=== PATIENT | male | born 1960 | race African-American/Black ===

== ENCOUNTER 2016-07-14 14:20 | Inpatient (IN) | payer BC, OTHER ==
[~2016-07-14] VITALS: Ht 172.7 cm; Wt 49.6 kg
[~2016-07-14 14:20] MED LIST: AMLO10TA OR; LEVA250T OR; LISI20TA5 OR; NASONEX INH; NICO21DI4 TD; NYSTATIN POWDER TOP; [UNRECOGNIZED DRUG - OTHER]; [UNRECOGNIZED DRUG - OTHER] INH
[2016-07-14] MEDS ORDERED: NS 1,000 ML IV ONE (15:00)
[2016-07-14] MEDS ORDERED: ADVI200T PO (15:35)
[2016-07-14 15:46] LABS: CALCIUM LEVEL 8.3 MG/DL (8.5-10.1); CREATININE FOR GFR 2.42 MG/DL (0.70-1.30); GLOMERULAR FILTRATION RATE 35.8 (>56); POTASSIUM SERUM 4.7 MEQ/L (3.5-5.1)
--- NOTE | 2016-07-14 15:53 | REP ---
CT of the brain without IV contrast: Comparison is 05/25/2010. There is no hemorrhage. The cortical stripe is unremarkable. There is no edema, mass effect or midline shift. The ventricles and sulci are dilated, as previously, compatible with diffuse volume loss. There are hypo densities in the deep white matter compatible with chronic microvascular ischemia, also unchanged. Impression: There is no hemorrhage, acute infarct or mass. There is diffuse volume loss and chronic microvascular ischemia, unchanged from the comparison study. Signed by Keshav Carrion MD 07/14/2016 03:44 P
--- NOTE | 2016-07-14 15:59 | REP ---
Leading add were CT of the chest without IV contrast: There is a large infiltrate posteriorly in the right upper lobe. There is a smaller infiltrate in the right lower lobe. There is a right pleural effusion. The left lung is clear. The thoracic aorta is unremarkable. Cardiac size is normal. There is opaque material in the myocardium of the left ventricle anterolaterally and within the lumen of the left ventricle of uncertain significance. There are no comparison studies. There is no pericardial effusion. Impression: Large right upper lobe infiltrate. Smaller right lower lobe infiltrate. Right pleural effusion. Opacities are present in the left ventricle myocardium left ventricular lumen of uncertain significance in this study without IV contrast and without comparisons. Signed by Keshav Carrion MD 07/14/2016 03:50 P
--- NOTE | 2016-07-14 16:03 | REP ---
CT of the abdomen pelvis without IV and oral contrast: There are opacities in the left ventricular myocardium and left ventricular lumen of uncertain significance in this study without IV contrast and without comparisons. There is a small right pleural effusion. The unenhanced hepatic parenchyma, gallbladder, pancreas and spleen are unremarkable. The adrenals, kidneys and abdominal aorta are unremarkable. There is no bowel distension or obstruction. Pelvis: There is no ascites or adenopathy. The bladder is unremarkable. The appendix is unremarkable. Impression: Small right pleural effusion. Opacities in the cardiac left ventricular myocardium and lumen of uncertain significance in the absence of prior studies and in the absence of IV contrast. No bowel distension or obstruction. No adenopathy or mass. No ascites. Otherwise, negative CT of the abdomen and pelvis. Signed by Keshav Carrion MD 07/14/2016 03:54 P
--- NOTE | 2016-07-14 16:07 | REP ---
Portable chest, single AP view, patient sitting: There is a large right upper lobe infiltrate. Left lung is clear. No pleural effusion. The isaak, mediastinum, bony thorax are otherwise unremarkable. Signed by Keshav Carrion MD 07/14/2016 03:59 P
[2016-07-14] MEDS ORDERED: AZITHROMYCIN INJ 500 MG, VIAL MATE ADAPTER 1 EACH in D5W 250 ML IV ONE (16:15)
[2016-07-14] MEDS ORDERED: cefTRIAXone SOD 1 GM in D5W MINI-BAG PLUS 50 ML IV ONE (16:15)
[2016-07-14] MEDS ORDERED: methylPREDNISolone INJ 125 MG/2 ML VIAL (J2930) IV ONE (16:30)
[2016-07-14] MEDS ORDERED: IPRATROPIUM 0.5MG/ALBUTEROL 2.5MG INH SOL UD 3ML (DUONEB)(J7620) NEB ONE (16:30)
[2016-07-14] MEDS ORDERED: NS 700 ML IV ONE (16:30)
[2016-07-14] MEDS ORDERED: ALBUTEROL SULFATE 2.5 MG/0.5 ML INH NEB SOLN INH ONE (16:30)
[2016-07-14 16:39] LABS: ABG BASE EXCESS -5.6 (-2.0-2.0); ABG HCO3 16.6 MEQ/L (22.0-26.0); ABG PARTIAL PRESSURE CO2 24.3 mmHg (35.0-45.0); ABG PARTIAL PRESSURE O2 53.9 mmHg (75.0-100.0); ABG STANDARD HCO3 19.7 MEQ/L (22.0-26.0); ABG TOTAL CO2 17.4 MEQ/L (22.0-29.0); ABG pH (ARTERIAL) 7.453 UNITS (7.350-7.450)
[2016-07-14 16:47] LABS: FREE T4 1.18 NG/DL (0.76-1.46)
[2016-07-14 17:28] LABS: INR 1.23
[2016-07-14] MEDS: OXAZEPAM 15 MG CAP PO SCH ×2 (18:00→22:58)
[2016-07-14 18:03] LABS: DIFF SLIDE NUMBER 143; MEAN CORPUSCULAR HEMOGLOBIN 33.2 pg (27.0-33.0); MEAN CORPUSCULAR HGB CONC 34.3 g/dl (32.0-36.5); MEAN CORPUSCULAR VOLUME 96.8 fl (80.0-96.0); RED CELL DISTRIBUTION WIDTH 13.6 % (11.5-14.5); WHITE BLOOD COUNT 3.5 K/mm3 (4.0-10.0)
[2016-07-14 18:12] LABS: PLATELET COUNT, AUTOMATED 80 k/mm3 (150-450)
[2016-07-14 18:55] LABS: BANDS 16 % (< 11)
[2016-07-14 18:56] LABS: BURR CELLS 1+; TOXIC VACUOLATION 1+
[2016-07-14] MEDS ORDERED: ONDANSETRON 4MG/2ML VIAL (J2405) IV PRN (19:45)
[2016-07-14] MEDS ORDERED: LORazepam 2 MG/ML VIAL (J2060) IV PRN (19:45)
[2016-07-14] MEDS ORDERED: IPRATROPIUM 0.5MG/ALBUTEROL 2.5MG INH SOL UD 3ML (DUONEB)(J7620) NEB PRN (19:45)
--- NOTE | 2016-07-14 20:17 | HPEPDOC ---
General Date of Admission 07/14/16 Other Providers PCP: None Attending Physician: FEI TORRES Chief Complaint The patient is a 55-year-old male admitted with a reason for visit of General Weakness. Source: RN/MD, EMS notes reviewed Exam Limitations: Clinical conditions History of Present Illness 55-year-old male with past medical history of hypertension, alcohol abuse ( drinks a 6 pack per day for the past 30+ years), tobacco abuse (2PPD for 30+ years), Possible COPD (no formal testing done in the past), and right-sided pulmonary nodules noted on x-ray imaging in 2010 presented to the ER with a chief complaint of progressive shortness of breath and increase in weakness/ lethargy with a 30 pound weight loss over the last several months. The patient is a very poor historian and is unable to provide much information about his medical history. However, the ER physician was able to get in contact with the of the patient who states that the patient has not seen a physician in 5+ years, and does not take any medications. The patient's states that the patient has started to require significant help with his activities of daily living and ambulation. In addition, she notes that he has been increasingly weak and notes that he has been having more of a productive cough with increased shortness of breath during this time. Further history is limited given the patient's clinical condition. A phone call was placed to the patient' s , and has not been immediately returned. Of note, the patient was admitted here at [facility] for 17 days in May 2010 for septic shock, acute renal failure, acute hypoxic respiratory failure 2/2 streptococcal pneumonia with ARDS, requiring intubation, mechanical ventilation , and vasopressor therapy. It appears as though the patient has not followed up with any physician following his discharge at that time. Home Medications Scheduled PRN Ibuprofen (Advil) 200 Mg Tab 400 MG PO PRN PRN PRN PAIN (Reported) Allergies Coded Allergies: No Known Allergies (Verified Allergy, Unknown, 05/25/10) Past Medical History Medical History As noted in the HPI. Surgical History Unable to reliably obtain secondary to patient's clinical condition Family History Unable to reliably obtain secondary to patient's clinical condition Social History Unable to reliably obtain secondary to patient's clinical condition Review of Symptoms Other systems Unable to reliably obtain secondary to patient's clinical condition Physical Examination General Exam: Positive: Mild Distress (Patient able to speak in a full sentence , however does have some labored breathing. No accessory muscle use. Oriented to person, place, but not time, situation. Resting in bed, appears cachectic with bitemporal wasting) ENT Exam: Positive: Atraumatic, Other ENT (dry mucous membranes) Neck Exam: Negative: JVD Chest Exam: Positive: Diminished, Other (Decreased breath sounds auscultated right vs left) Heart Exam: Positive: Normal S1, Normal S2, Rate Normal, Tachycardic Telemetry: Positive: Sinus Abdomen Exam: Positive: Soft, Negative: Tenderness Extremity Exam: Positive: Other (Chronic Venous Stasis changes, dry skin noted in the lower extremities bilaterally), Negative: Swelling, Tenderness Neuro Exam: Positive: Cranial Nerves 3-12 NL, Sensation Intact, Strength at 5/ 5 X4 ext Vital Signs Vital Signs Date Time Temp Pulse Resp B/P Pulse Ox O2 Delivery O2 Flow Rate FiO2 07/14/16 18:58 96.9 114 16 94 Venturi Mask 40 07/14/16 18:56 151/79 Laboratory Data Labs 24H Laboratory Tests 2 07/14/16 15:05: Anion Gap 16, Blood Urea Nitrogen 39H, Creatinine 2.42H, Sodium Level 123L, Potassium Level 4.7, Chloride Level 87L, Carbon Dioxide Level 20L, Calcium Level 8.3L, Total Creatine Kinase 175, Creatine Kinase MB 1.7, Creatine Kinase MB Relative Index 0.97, Free Thyroxine 1.18, Glomerular Filtration Rate 35.8L, Lactic Acid Level 3.8*H, Thyroid Stimulating Hormone (TSH) 4.640H, Troponin I 0.06 07/14/16 16:24: Arterial Blood pH 7.453H, Arterial Blood Partial Pressure CO2 24.3L, Arterial Blood Partial Pressure O2 53.9L, Arterial Blood Total CO2 17.4L, Arterial Blood HCO3 16.6L, Arterial Blood Base Excess -5.6L, Arterial Blood Oxygen Saturation 84.6L, Blood Gas Bicarbonate Standard 19.7L 07/14/16 17:10: Activated Partial Thromboplast Time 33.1, Atypical Lymphocytes 5, Band Neutrophils 16H, Pierre Cells 1+, Lymphocytes (Manual) 5L, Macrocytosis 1+, Metamyelocytes 3H, Monocytes (Manual) 7, Neutrophils 64, Osmolality 266L, Platelet Estimate DECREASED, Prothromb Time International Ratio 1.23, Prothrombin Time 15.6H, Toxic Vacuolation 1+ CBC/BMP Laboratory Tests 07/14/16 15:05 Calcium Level 8.3 L, Total Creatine Kinase 175 07/14/16 17:10 Red Blood Count 3.76 L, Mean Corpuscular Volume 96.8 H, Mean Corpuscular Hemoglobin 33.2 H, Mean Corpuscular Hemoglobin Concent 34.3, Red Cell Distribution Width 13.6 Microbiology Microbiology 07/14/16 Blood Culture, Received Pending 07/14/16 Blood Culture, Received Pending Plan / VTE VTE Prophylaxis Ordered?: Yes (TEDs) Plan Plan Acute hypoxic failure secondary to community-acquired pneumonia We will admit the patient to PCU ABG notable for metabolic acidosis with compensatory respiratory alkalosis Ct Scan of the Chest notable for Large right upper lobe infiltrate. Smaller right lower lobe infiltrate. Right pleural effusion. Blood cultures, sputum cultures, respiratory panel ordered Patient has been empirically begun on Rocephin and azithromycin Albuterol, neb therapy ordered Incentive spirometry, Acapella ordered We will continue to monitor the patient's respiratory status and down titrate supplemental oxygen as tolerated Lactic acidosis likely secondary to above Serum lactate noted to be 3.8 The patient has been bolused 30 mL per KG of normal saline IV fluids We will recheck a serum lactate level Acute renal failure likely secondary to intravascular volume depletion Serum creatinine noted to be 2.42 (?Baseline, our last baseline Cr for patient is ~1.0 in 2010) IV fluid hydration ordered Urine lytes ordered Renal ultrasound We will follow-up on the patient's kidney function after IV fluid hydration Hyponatremia Serum sodium noted to be 123 The patient does drink a sixpack of beer daily, and I do suspect that this may be related to beer potomania. Serum osmolarity, urine osmolarity, and urine sodium levels ordered The patient has been given a 1.7 L fluid bolus in the ER for lactic acidosis as noted above We will recheck his serum sodium level serially, and adjust IV fluid composition /rate accordingly Alcohol abuse Withdrawal precautions ordered Serax 15 mg every 6 hours ordered Ativan when necessary ordered ?COPD Patient has smoked 2 PPD for 30+ years according to records There is some wheezing noted on exam Albuterol, Nebs have been ordered Patient will need formal PFT studies done in the future Pancytopenia possibly secondary to chronic alcohol abuse No need for transfusion at this time Peripheral smear ordered Pulmonary nodules noted on Chest X-ray in 2010 Given the patient's 30 pound weight loss, progressive fatigue/lethargy it is possible that the patient may have an underlying malignancy Although the CT of the chest did not reveal any nodules on admission, they may be obscured by the infiltrates/effusion noted on the right side. Consider follow-up CT of the chest once the patient is more medically optimized Opacities noted in the LV myocardium, lumen of uncertain significance on CT Chest These findings were discussed by Dr. James in the ER with Dr. Somers of Cardiology who has indicated that there is no urgent need at this time for STAT ECHO evaluation. We will order a routine 2-D echocardiogram at Dr. Somers' request, who will follow up for further delineation of the aforementioned findings. DVT prophylaxis--TEDs (No anticoagulation used 2/2 Thrombocytopenia) Prognosis Guarded at this time, Senior Living Prognosis poor given the patient's history of non-adherence, and multiple medical complications on this admission including but not limited to; hypoxic respiratory failure, community-acquired pneumonia, lactic acidosis, acute renal failure, hyponatremia, and overall clinical deterioration over the last several months. The patient will be admitted under the service of Dr. Torres, who will begin to follow the patient on 07/15/16 at 7 AM. NORIS GARCIA MD Jul 14, 2016 20:17
[2016-07-14 20:20] VITALS: O2SAT 93
[2016-07-14] MEDS: IPRATROPIUM 0.5MG/ALBUTEROL 2.5MG INH SOL UD 3ML (DUONEB)(J7620) NEB SCH ×2 (20:28→23:38)
--- NOTE | 2016-07-14 21:20 | REPUSA ---
Clinical history: Renal disease. Findings: The urinary bladder appears unremarkable. No urinary bladder masses are seen. The right kid melania measures 11.9 x 6.4 x 5.5 cm. The left kidney measures 11.5 x 4.7 x 6.3 cm. The kidneys demonst rate increased echotexture and echogenicity. There is no evidence of hydronephrosis or nephrolithias is. No renal masses are seen. No free fluid is appreciated. Impression: No evidence of hydronephrosis or nephrolithiasis. However, increase echogenicity of the r enal cortex is seen bilaterally, suggesting moderate chronic medical renal disease.
[2016-07-14 21:25] VITALS: BP 140/71
[2016-07-14 21:25] LABS: REASON FOR REVIEW COMPREHENSIVE REVIEW
[2016-07-14 21:34] LABS: MAGNESIUM LEVEL 1.7 MG/DL (1.8-2.4)
[2016-07-14 21:58] LABS: CALCIUM LEVEL 7.6 MG/DL (8.5-10.1); CREATININE FOR GFR 2.09 MG/DL (0.70-1.30); GLOMERULAR FILTRATION RATE 42.4 (>56); POTASSIUM SERUM 3.6 MEQ/L (3.5-5.1)
[2016-07-14] MEDS: MAGNESIUM OXIDE 400 MG TAB (MAG-OX) PO SCH (22:58)
[2016-07-14 23:59] VITALS: BP 108/56
[2016-07-15 01:50] LABS: METHADONE URINE NEGATIVE (NEGATIVE)
[2016-07-15] MEDS: IPRATROPIUM 0.5MG/ALBUTEROL 2.5MG INH SOL UD 3ML (DUONEB)(J7620) NEB SCH ×5 (03:26→20:34)
[2016-07-15 04:45] VITALS: BP 130/80
[2016-07-15] MEDS: OXAZEPAM 15 MG CAP PO SCH ×3 (05:23→17:34)
[2016-07-15] MEDS: cefTRIAXone SOD 1 GM in D5W MINI-BAG PLUS 50 ML IV SCH ×2 (05:23→17:24)
[2016-07-15 05:43] LABS: DIFF SLIDE NUMBER 71; MEAN CORPUSCULAR HEMOGLOBIN 33.6 pg (27.0-33.0); MEAN CORPUSCULAR HGB CONC 34.2 g/dl (32.0-36.5); MEAN CORPUSCULAR VOLUME 98.1 fl (80.0-96.0); RED CELL DISTRIBUTION WIDTH 13.7 % (11.5-14.5); WHITE BLOOD COUNT 7.1 K/mm3 (4.0-10.0)
[2016-07-15 05:44] LABS: PLATELET COUNT, AUTOMATED 84 k/mm3 (150-450)
[2016-07-15 05:49] LABS: ALBUMIN/GLOBULIN RATIO 0.53 (1.00-1.93); BILIRUBIN,TOTAL 1.6 MG/DL (0.2-1.0); CALCIUM LEVEL 7.7 MG/DL (8.5-10.1); CREATININE FOR GFR 1.87 MG/DL (0.70-1.30); GLOMERULAR FILTRATION RATE 48.3 (>56); MAGNESIUM LEVEL 1.7 MG/DL (1.8-2.4); POTASSIUM SERUM 3.5 MEQ/L (3.5-5.1); TOTAL PROTEIN 5.8 GM/DL (6.4-8.2)
[2016-07-15 06:36] LABS: BANDS 3 % (< 11)
[2016-07-15 06:38] LABS: TOXIC GRANULATION 1+
[2016-07-15 06:40] LABS: BURR CELLS 1+
[2016-07-15 06:41] LABS: ACANTHOCYTES 1+
[2016-07-15 08:00] VITALS: BP 124/91
[2016-07-15] MEDS: MAGNESIUM OXIDE 400 MG TAB (MAG-OX) PO SCH ×2 (08:33→20:48)
[2016-07-15] MEDS: MAG SULF 1GM/100ML (MAG RUN) 1 GM in APPROPRIATE DILUENT 1 EA IV SCH ×2 (08:33→09:58)
[2016-07-15] MEDS ORDERED: VANCOMYCIN HCL 1,000 MG, VIAL MATE ADAPTER 1 EACH in D5W 250 ML IV SCH (10:00)
--- NOTE | 2016-07-15 10:34 | PHACANCOPD ---
PHARMACY VANCOMYCIN DOSING Pt Demographics Demographics Patient Age:55 , Weight:51.500 , Gender: male Adjusted Body Weight Date: 07/15/16, Adjusted Body Weight: [52] Kg Events Past 24 Hours Events Past 24 Hours: NO: Change in CrCl, Dialysis, Diuretic Therapy, Elevation in WBC, Fever, Other, Pending Diagnostics, Pending Procedures Vancomycin Vancomycin indication: BACTEREMIA Vancomycin Target Ranges: 15-20 mcg/ml Vancomycin Load Y/N: No Load Dose Date Time Vancomycin Load Dose: Date: Time: Vancomycin Dose Date: 07/15/16. Current Vancomycin Dose: [1G IV Q24H @10] Intermittent Dosing?: No Labs Labs Item Value Date Time White Blood Count 3.5 K/mm3 L 07/14/16 1710 White Blood Count 7.1 K/mm3 07/15/16 0522 Creatinine 1.87 MG/DL H 07/15/16 0522 Micro Microbiology 07/15/16 Blood Culture, Received Pending 07/15/16 Blood Culture, Received Pending 07/14/16 Blood Culture - Preliminary, Resulted 07/14/16 Blood Culture - Preliminary, Resulted 07/15/16 Respiratory Virus Panel (PCR) (NISREEN) - Final, Complete 07/15/16 Urine Culture, Received Pending Creatinine Clearance Date:07/15/16. Creatinine Clearance: [42.2]. Pending Labs BLOOD AND URINE CULTURES Assessment and Plan Maintaining Current Dose?: Yes Reason for dose change: No Dose Change Pharmacist Note Pharmacist Note Date: 07/15/16. Pharmacist note: PT is a 55y/o male being treated for bacteremia blood and urine cultures pending, target trough 15-20mcg/ml. Pt has been [facility] with vancom[facility]. To achieve goal he is scheduled to receive 1g q 24h starting 07/15 @10. We will continue to monitor and change dose as needed. MUNA GONSALES PHARMACY Jul 15, 2016 10:34
[2016-07-15 12:00] VITALS: BP 162/88
[2016-07-15 15:33] VITALS: BP 141/80
--- NOTE | 2016-07-15 16:57 | IPNPDOC ---
Date Seen The patient was seen on 07/15/16. Progress Note Hospitalist Progress Note Subjective: The patient is currently somewhat sedated after receiving a dose of Serax. Per nursing, he has been maintaining his blood pressure Objective: Physical Exam: Vitals: Vital Sign - Last 24 Hours 07/14/16 07/14/16 07/14/16 07/14/16 17:12 17:26 17:27 17:41 Pulse 118 118 B/P 136/77 120/79 Pulse Ox 92 93 07/14/16 07/14/16 07/14/16 07/14/16 17:42 17:56 17:57 18:11 Pulse 118 116 B/P 121/79 128/86 Pulse Ox 92 91 07/14/16 07/14/16 07/14/16 07/14/16 18:12 18:13 18:26 18:28 Pulse 114 114 116 B/P 130/84 Pulse Ox 90 91 91 07/14/16 07/14/16 07/14/16 07/14/16 18:41 18:43 18:56 18:58 Temp 96.9 Pulse 112 114 Resp 16 B/P 131/78 151/79 Pulse Ox 92 94 O2 Delivery Venturi Mask FiO2 40 07/14/16 07/14/16 07/14/16 07/14/16 20:20 21:25 23:27 23:59 Temp 98.9 99.7 Pulse 55 133 Resp 22 22 B/P 140/71 108/56 Pulse Ox 93 93 96 O2 Delivery Venturi Mask Venturi Mask Venturi Mask Venturi Mask O2 Flow Rate 15.0 15.0 15.0 15.0 FiO2 40 40 07/15/16 07/15/16 07/15/16 07/15/16 00:00 04:00 04:45 08:00 Temp 99.7 99.0 Pulse 119 124 Resp 20 20 B/P 130/80 124/91 Pulse Ox 99 94 O2 Delivery Venturi Mask Venturi Mask Venturi Mask Venturi Mask O2 Flow Rate 15.0 15.0 07/15/16 07/15/16 07/15/16 07/15/16 08:15 12:00 12:24 15:33 Temp 97.0 96.9 Pulse 82 116 Resp 20 20 B/P 162/88 141/80 Pulse Ox 96 96 O2 Delivery Venturi Mask Nasal Cannula Nasal Cannula Nasal Cannula O2 Flow Rate 2.0 2.0 2.0 General: Sleeping, but able to be aroused by verbal and tactile stimuli HEENT: Normocephalic, atraumatic CV: Regular rhythm but slightly tachycardic Lungs: Diffuse rhonchi throughout Abd: Soft, nontender, nondistended Extremities: No bilateral lower extremity edema Neuro: Oriented to self, but somewhat sedated after receiving Serax Psych: Unable to assess Labs and Imaging: Laboratory Tests 07/14/16 17:10 Red Blood Count 3.76 L, Mean Corpuscular Volume 96.8 H, Mean Corpuscular Hemoglobin 33.2 H, Mean Corpuscular Hemoglobin Concent 34.3, Red Cell Distribution Width 13.6 07/14/16 21:19 Calcium Level 7.6 L 07/14/16 22:39 07/15/16 01:53 07/15/16 05:22 Calcium Level 7.7 L, Aspartate Amino Transf (AST/SGOT) 41 H, Alanine Aminotransferase (ALT/SGPT) 20, Alkaline Phosphatase 46, Total Bilirubin 1.6 H, Total Protein 5.8 L, Albumin 2.0 L, Red Blood Count 3.48 L, Mean Corpuscular Volume 98.1 H, Mean Corpuscular Hemoglobin 33.6 H, Mean Corpuscular Hemoglobin Concent 34.2, Red Cell Distribution Width 13.7 07/15/16 10:52 07/15/16 15:05 Assessment and Plan: 55-year-old male with hypertension, alcohol dependence, tobacco abuse, likely undiagnosed COPD, history of right-sided pulmonary nodules on imaging in 2010 who presented to the emergency department with increasing shortness of breath as well as a 30 pound weight loss over the last several months. According to his , he has not seen a physician in over 5 years and does not take any medications. He is admitted with acute respiratory failure secondary to community-acquired pneumonia. 1. Acute respiratory failure secondary to community-acquired pneumonia: The patient is afebrile, his initial white count was a little bit low. Today, his white count has normalized. Imaging shows a large right upper lobe infiltrate, as well as a small right lower lobe infiltrate. Blood and urine cultures are pending. The patient has an associated lactic acidosis, which is also improving. At this time, we will continue azithromycin and ceftriaxone. The patient did receive an adequate fluid bolus, but we will not be judicious with his IV fluids, as an admission for similar presentation several years ago, found him requiring intubation after volume overload. We will start him on gentle IV fluids. Initial blood cultures are growing GPC's in both bottles, so we will add vancomycin and repeat blood cultures. The patient has also been started on duo nebs for his likely underlying COPD. 2. Hyponatremia: The patient's sodium was 123 upon arrival. I suspect that there is some chronic component of this secondary to his alcohol dependence. With IV fluid boluses, his sodium has trended up to 129. We will start gentle normal saline, and continue to monitor serial sodiums 3. Acute kidney injury: Patient's baseline creatinine is unknown, creatinine upon arrival was 2.42. After fluid bolus, his creatinine is improved to 1.87, and we'll continue to follow it. 4. Opacity in the left ventricle: On chest imaging, they instantly noted in opacity in the left ventricle. Per report, the ED physician spoke with Dr. Somers about this, and he recommended routine echocardiogram, which she would follow up. 5. Alcohol dependence: The patient has been started on scheduled oral Serax, as well as as needed Ativan. However, the patient was very lethargic when I saw him , so we will check an ABG and hold future Serax doses if he is somnolent 6. Hypomagnesemia: Replacing. 7. Hypertension: The patient does not take any medications at home. At this time , his blood pressure is adequate and we will follow closely. 8. Known pulmonary nodules: These were noted on his admission almost 6 years ago. At that time, there was concern for postobstructive pneumonia. According to the , this was never further investigated after discharge. When the patient is finally discharged, he will need close follow-up with pulmonology, with repeat imaging and possibly biopsies. It is significant to note, the patient has lost 30 pounds in the last several months, and this pneumonia has occurred on the same side as the pneumonia several years ago. DVT prophylaxis: SCDs Dispo: prognosis is guarded at this time, continue to monitor closely VS, I&O, 24H, Fishbone Vital Signs/I&O Vital Signs Date Time Temp Pulse Resp B/P Pulse Ox O2 Delivery O2 Flow Rate FiO2 4/24/17 15:33 96.9 116 20 141/80 96 Nasal Cannula 2.0 07/14/16 23:27 40 I&O- Last 24 Hours up to 6 AM 07/15/16 05:59 Intake Total 2000 ml Output Total 375 ml Balance 1625 ml Laboratory Data 24H LABS Laboratory Tests 2 07/14/16 17:05: Differential Pathologist's Review COMPREHENSIVE REVIEW, Differential Slide Review Report, Estimated Mean Plasma Glucose 111H, Hemoglobin A1c 5.5, Peripheral Blood Smear Path Consult PERIPHERAL SMEAR 07/14/16 17:10: Activated Partial Thromboplast Time 33.1, Atypical Lymphocytes 5, Band Neutrophils 16H, Pierre Cells 1+, Lymphocytes (Manual) 5L, Macrocytosis 1+, Metamyelocytes 3H, Monocytes (Manual) 7, Neutrophils 64, Osmolality 266L, Platelet Estimate DECREASED, Prothromb Time International Ratio 1.23, Prothrombin Time 15.6H, Toxic Vacuolation 1+ 07/14/16 21:19: Anion Gap 12, Blood Urea Nitrogen 36H, Creatinine 2.09H, Sodium Level 126L, Potassium Level 3.6#, Chloride Level 93L, Carbon Dioxide Level 21, Calcium Level 7.6L, Glomerular Filtration Rate 42.4L, Lactic Acid Level 3.2*H 07/15/16 00:55: Urine Amorphous Sediment SMALLH, Urine Amphetamines Screen NEGATIVE, Urine Benzodiazepines Screen NEGATIVE, Urine Opiates Screen NEGATIVE, Urine Appearance CLOUDYH, Urine Color CHRISTOPHER, Urine pH 5.0, Urine Specific [place] 1.013, Urine Protein NEGATIVE, Urine Glucose (UA) NEGATIVE, Urine Ketones TRACEH , Urine Urobilinogen 2.0H, Urine Bilirubin NEGATIVE, Urine Leukocyte Esterase NEGATIVE, Urine Bacteria (Auto) NEGATIVE, Urine Barbiturates Screen NEGATIVE, Urine Blood 1+H, Urine Calcium Carbonate Cryst(Auto) , Urine Calcium Oxalate Cryst (Auto) , Urine Calcium Phosphate Janina (Auto) , Urine Cannabinoids Screen NEGATIVE, Urine Cellular Casts , Urine Cocaine Metabolite Screen NEGATIVE, Urine Cystine Crystals , Urine Granular Casts (Auto) , Urine Hyaline Casts (Auto ) 1, Urine Leucine Crystals , Urine Methadone Screen NEGATIVE, Urine Mucus (Auto ) SMALL, Urine Nitrite NEGATIVE, Urine Oval Fat Bodies (Auto) , Urine Phencyclidine Screen NEGATIVE, Urine RBC (Auto) 1, Urine Renal Epithelial Cells , Urine Sperm (Auto) , Urine Squamous Epithelial Cells 4, Urine Transitional Epithelial Cells , Urine Trichomonas (Auto) , Urine Triple Phosphate Cryst (Auto ) , Urine Tyrosine Crystals , Urine Uric Acid Crystals (Auto) , Urine WBC (Auto ) 9H, Urine Waxy Casts (Auto) , Urine Yeast-Like Cells (Auto) 07/15/16 01:53: Lactic Acid Followup at 4 Hours 2.7*H 07/15/16 05:22: Acanthocytes 1+, Blood Urea Nitrogen 35H, Creatinine 1.87H, Sodium Level 128L, Potassium Level 3.5, Chloride Level 95L, Carbon Dioxide Level 18L, Calcium Level 7.7L, Aspartate Amino Transf (AST/SGOT) 41H, Alanine Aminotransferase (ALT /SGPT) 20, Alkaline Phosphatase 46, Total Bilirubin 1.6H, Total Protein 5.8L, Albumin 2.0L, Albumin/Globulin Ratio 0.53L, Anion Gap 15, Band Neutrophils 3, Pierre Cells 1+, Glomerular Filtration Rate 48.3L, Lactic Acid Level 2.9*H, Lymphocytes (Manual) 2L, Macrocytosis 1+, Magnesium Level 1.7L, Monocytes ( Manual) 4, Neutrophils 91H, Platelet Estimate DECREASED, Toxic Granulation 1+ 07/15/16 09:40: Lactic Acid Followup at 4 Hours 2.4*H CBC/BMP Laboratory Tests 07/14/16 17:10 Red Blood Count 3.76 L, Mean Corpuscular Volume 96.8 H, Mean Corpuscular Hemoglobin 33.2 H, Mean Corpuscular Hemoglobin Concent 34.3, Red Cell Distribution Width 13.6 07/14/16 21:19 Calcium Level 7.6 L 07/14/16 22:39 07/15/16 01:53 07/15/16 05:22 Calcium Level 7.7 L, Aspartate Amino Transf (AST/SGOT) 41 H, Alanine Aminotransferase (ALT/SGPT) 20, Alkaline Phosphatase 46, Total Bilirubin 1.6 H, Total Protein 5.8 L, Albumin 2.0 L, Red Blood Count 3.48 L, Mean Corpuscular Volume 98.1 H, Mean Corpuscular Hemoglobin 33.6 H, Mean Corpuscular Hemoglobin Concent 34.2, Red Cell Distribution Width 13.7 07/15/16 10:52 4/24/17 15:05 Microbiology Microbiology 07/15/16 Blood Culture, Received Pending 07/15/16 Blood Culture, Received Pending 07/14/16 Blood Culture - Preliminary, Resulted 07/14/16 Blood Culture - Preliminary, Resulted 07/15/16 Respiratory Virus Panel (PCR) ([facility]) - Final, Complete 07/15/16 Urine Culture, Received Pending FEI GANT Jul 15, 2016 16:57
[2016-07-15 17:04] LABS: ABG BASE EXCESS -6.9 (-2.0-2.0); ABG HCO3 18.7 MEQ/L (22.0-26.0); ABG PARTIAL PRESSURE CO2 37.7 mmHg (35.0-45.0); ABG PARTIAL PRESSURE O2 70.1 mmHg (75.0-100.0); ABG STANDARD HCO3 18.8 MEQ/L (22.0-26.0); ABG TOTAL CO2 19.8 MEQ/L (22.0-29.0); ABG pH (ARTERIAL) 7.313 UNITS (7.350-7.450)
[2016-07-15] MEDS: NS 1,000 ML IV SCH (17:23)
[2016-07-15] MEDS: AZITHROMYCIN INJ 500 MG, VIAL MATE ADAPTER 1 EACH in D5W 250 ML IV SCH (17:24)
--- NOTE | 2016-07-15 19:30 | ECHO ---
DATE OF PROCEDURE: 07/15/2016 AGE: 55 GENDER: Male HEIGHT: 68 inches WEIGHT: 119 pounds BODY SURFACE AREA: 1.64 sq m INPATIENT: Progressive Care Unit (PCU) Room 3222. REFERRING PHYSICIAN: Dr. Ken Weston. INDICATION: CT scan suggestive of left ventricle (LV) mass. MEASUREMENTS: 2-D measurements: RV- 3.7 cm LV 6.0 cm Septum- 1.2 cm Posterior wall- 1.2 cm Aortic root- 3.6 cm LA- 3.8 cm LVEF- 35-40% Doppler measurements: AV- 1.3 m/s LVOT- 0.93 m/s LVOT diameter- 2.1 cm MV-E- 83 A- 110 E/A ratio- 0.7 Early mitral deceleration time- 164 ms E prime not well visualized. PV- 0.65 m/s Pulmonary artery acceleration time- 92 ms RVSP- 38 mmHg IVC- 1.3 cm COMMENTS: Sinus tachycardia with intraventricular conduction disturbance. Somewhat technically challenging study in light of his body habitus. Borderline increased left atrial size with moderately dilated left ventricle. Left heart chambers were upper limits of normal in size. LV wall thickness was borderline increased. On real-time imaging from the parasternal and apical projections there was fairly marked anterior hypo to akinesis with hyperkinesis of the apex and slight hypokinesis of other wiley. Mildly thickened mitral annulus with prominent papillary muscles. Normal leaflet thickness with a "low flow" appearance to leaflet motion but no posterior systolic buckling. Three equal size aortic cusps with mildly thickened cusp edges but adequate cusp separation. Premature cusp closure suggestive. Aortic diameter was upper limits of normal aortic root size. Could not rule out a small sessile vegetation on the aortic valve but no other intracardiac mass or pericardial effusion. Color flow Doppler study taken from the parasternal and apical projections showed very mild aortic and moderate to moderately severe mitral insufficiency. Very mild tricuspid insufficiency. Guided continuous wave Doppler of his aortic valve showed a normal peak systolic velocity against an LV outflow tract obstruction. Pulsed and continuous wave Doppler of his LV inflow tract taken from the apical four-chamber projection showed normal diastolic filling velocities against mitral stenosis. There was more prominent late diastolic / atrial dependent filling pattern. In light of the patient's heart rate it was difficult to make further comments on his left atrial pressure or left ventricular diastolic function. Pulsed and continuous wave Doppler of his pulmonary trunk showed a normal peak systolic velocity against right ventricle (RV) outflow tract obstruction. Pulmonary artery acceleration time was abbreviated consistent with an elevated pulmonary vascular resistance. Guided continuous wave Doppler of his tricuspid valve allowed our estimation of his right ventricular systolic pressure (least mildly increased). Current inferior vena cava (IVC) size was normal with normal respiratory collapse against an elevated central venous pressure. CONCLUSIONS: Apparent LV mass suspected on chest CT scan believed to be simply papillary muscles. No other separate intracardiac mass was visible. Findings in keeping with a dilated cardiomyothy - Moderately dilated left ventricle with borderline hypertrophy and significant septal and apical wall motion abnormality as we might find with left bundle branch block but could not rule out a prior injury. At least moderately severe impairment of global LV systolic function. Borderline left atrial enlargement with Doppler evidence of a degree of LV diastolic dysfunction. Normal right heart chamber sizes with Doppler evidence of at least mild pulmonary hypertension. Normal IVC size and collapse against an elevated central venous pressure. Mild mitral annular thickening with moderately severe to severe mitral insufficiency related to left ventricular dysfunction and dilated mitral annulus. Subtle to mild aortic valvular sclerosis with very mild insufficiency. MTDD
[2016-07-15 19:38] VITALS: BP 112/65
--- NOTE | 2016-07-15 20:30 | ECGEPIP ---
Stationary ECG Study [facility] - ED Test Date: 2016-07-14 Pat Name: JOSÉ ANTONIO AVENDAÑO Department: Room: - Gender: M Passenger Agent: rn : 1960 Requested By: Shannon Jackson Order Number: [id number] Reading MD: Haritha Murdock Measurements Intervals [place] Rate: 106 P: 58 NH: 159 QRS: -22 QRSD: 100 T: 73 QT: 324 QTc: 431 Interpretive Statements SINUS TACHYCARDIA WITH FREQUENT VENTRICULAR PREMATURE COMPLEXES LEFT ATRIAL ENLARGEMENT POSSIBLE LEFT VENTRICULAR HYPERTROPHY POSSIBLE SEPTAL MYOCARDIAL INFARCTION, OF INDETERMINATE AGE NO PRIOR FOR COMPARISON Electronically Signed On 07-15-2016 20:29:56 EDT by Haritha Murdock
[2016-07-15 20:34] VITALS: O2SAT 96
[2016-07-15 22:40] LABS: ANION GAP 10 MEQ/L (8-16); BLOOD UREA NITROGEN 34 MG/DL (7-18); CALCIUM LEVEL 8.3 MG/DL (8.5-10.1); CARBON DIOXIDE LEVEL 23 MEQ/L (21-32); CHLORIDE LEVEL 97 MEQ/L (98-107); CREATININE FOR GFR 1.41 MG/DL (0.70-1.30); GLOMERULAR FILTRATION RATE > 60.0 (>56); GLUCOSE, FASTING 122 MG/DL (70-105); MAGNESIUM LEVEL 2.7 MG/DL (1.8-2.4); POTASSIUM SERUM 3.1 MEQ/L (3.5-5.1); SODIUM LEVEL 130 MEQ/L (136-145)
[2016-07-15] MEDS: KCL 10MEQ IN 100ML SWI (KRUN) 10 MEQ in APPROPRIATE DILUENT 1 EA IV SCH ×2 (23:41)
[2016-07-16] MEDS: IPRATROPIUM 0.5MG/ALBUTEROL 2.5MG INH SOL UD 3ML (DUONEB)(J7620) NEB SCH ×7 (00:03→23:19)
[2016-07-16 00:11] LABS: ABG BASE EXCESS -4.7 (-2.0-2.0); ABG HCO3 19.3 MEQ/L (22.0-26.0); ABG PARTIAL PRESSURE CO2 32.5 mmHg (35.0-45.0); ABG PARTIAL PRESSURE O2 75.6 mmHg (75.0-100.0); ABG STANDARD HCO3 20.5 MEQ/L (22.0-26.0); ABG TOTAL CO2 20.3 MEQ/L (22.0-29.0); ABG pH (ARTERIAL) 7.392 UNITS (7.350-7.450)
[2016-07-16 00:15] VITALS: BP 131/83
[2016-07-16] MEDS: KCL 10MEQ IN 100ML SWI (KRUN) 10 MEQ in APPROPRIATE DILUENT 1 EA IV SCH ×4 (01:00→02:26)
[2016-07-16] MEDS: NS 1,000 ML IV SCH ×3 (02:30→12:59)
[2016-07-16 04:20] VITALS: BP 137/69
[2016-07-16] MEDS: OXAZEPAM 15 MG CAP PO SCH ×2 (04:39→17:29)
[2016-07-16] MEDS: cefTRIAXone SOD 1 GM in D5W MINI-BAG PLUS 50 ML IV SCH ×2 (04:43→16:46)
[2016-07-16 05:52] LABS: DIFF SLIDE NUMBER 54; MEAN CORPUSCULAR HEMOGLOBIN 34.8 pg (27.0-33.0); MEAN CORPUSCULAR HGB CONC 35.1 g/dl (32.0-36.5); MEAN CORPUSCULAR VOLUME 99.1 fl (80.0-96.0); RED CELL DISTRIBUTION WIDTH 13.9 % (11.5-14.5); WHITE BLOOD COUNT 17.7 K/mm3 (4.0-10.0)
[2016-07-16 06:09] LABS: ALBUMIN 1.8 GM/DL (3.2-5.2); ALBUMIN/GLOBULIN RATIO 0.45 (1.00-1.93); ALKALINE PHOSPHATASE 64 U/L (45-117); ALT/SGPT 28 U/L (12-78); ANION GAP 11 MEQ/L (8-16); AST/SGOT 68 U/L (15-37); BILIRUBIN,TOTAL 1.5 MG/DL (0.2-1.0); BLOOD UREA NITROGEN 31 MG/DL (7-18); CALCIUM LEVEL 8.2 MG/DL (8.5-10.1); CARBON DIOXIDE LEVEL 21 MEQ/L (21-32); CHLORIDE LEVEL 98 MEQ/L (98-107); CREATININE FOR GFR 1.32 MG/DL (0.70-1.30); GLOMERULAR FILTRATION RATE > 60.0 (>56); GLUCOSE, FASTING 108 MG/DL (70-105); MAGNESIUM LEVEL 2.4 MG/DL (1.8-2.4); POTASSIUM SERUM 3.5 MEQ/L (3.5-5.1); SODIUM LEVEL 130 MEQ/L (136-145); TOTAL PROTEIN 5.8 GM/DL (6.4-8.2)
[2016-07-16 06:31] LABS: PLATELET COUNT, AUTOMATED 53 k/mm3 (150-450)
[2016-07-16 06:36] LABS: BANDS 2 % (< 11)
[2016-07-16 06:39] LABS: TOXIC GRANULATION 2+; TOXIC VACUOLATION 1+
[2016-07-16 07:39] VITALS: BP 126/70
--- NOTE | 2016-07-16 08:23 | PHACANCOPD ---
PHARMACY VANCOMYCIN DOSING Pt Demographics Demographics Patient Age:55 , Weight:51.000 , Gender: male Adjusted Body Weight Date: 07/15/16, Adjusted Body Weight: [52] Kg Events Past 24 Hours Events Past 24 Hours: YES: Change in CrCl (CRCL HAS INCREASED), Elevation in WBC, NO: Dialysis, Diuretic Therapy, Fever, Other, Pending Diagnostics, Pending Procedures Vancomycin Vancomycin indication: BACTEREMIA Vancomycin Target Ranges: 15-20 mcg/ml Vancomycin Load Y/N: No Load Dose Date Time Vancomycin Load Dose: Date: Time: Vancomycin Dose Date: 07/16/16. Current Vancomycin Dose: [1 GRAM IV Q12H @ 0900] Date: 07/15/16. Current Vancomycin Dose: [1G IV Q24H @10] Intermittent Dosing?: No Labs Labs Item Value Date Time White Blood Count 17.7 K/mm3 H 07/16/16 0531 Creatinine 1.41 MG/DL H 07/15/16 2150 Creatinine 1.32 MG/DL H 07/16/16 0531 Micro Microbiology 07/15/16 Blood Culture, Received Pending 07/15/16 Blood Culture, Received Pending 07/14/16 Blood Culture - Preliminary, Resulted 07/14/16 Blood Culture - Preliminary, Resulted 07/15/16 Respiratory Virus Panel (PCR) (NISREEN) - Final, Complete 07/15/16 Urine Culture, Received Pending Creatinine Clearance Date:07/15/16. Creatinine Clearance: [42.2]. Pending Labs VANCO TROUGH 07/17 @ 0800 Assessment and Plan Maintaining Current Dose?: No Reason for dose change: Change in serum Cr Pharmacist Note Pharmacist Note Date: 07/16/16. Pharmacist note: Patients WBCs increased and SCr has improved. Vanco dose was changed to 1 gram IV Q12H with a trough scheduled for 07/17 @ 0800. Blood cultures are still pending. Continue to monitor and adjust dose as needed. Date: 07/15/16. Pharmacist note: PT is a 55y/o male being treated for bacteremia blood and urine cultures pending, target trough 15-20mcg/ml. Pt has been treated with vancomycin here at [facility] in the past. To achieve goal he is scheduled to receive 1g q 24h starting 07/15 @10. We will continue to monitor and change dose as needed. BOBO STAPLETON [facility] Jul 16, 2016 08:23
[2016-07-16] MEDS: MAGNESIUM OXIDE 400 MG TAB (MAG-OX) PO SCH (09:00)
[2016-07-16] MEDS: VANCOMYCIN HCL 1,000 MG, VIAL MATE ADAPTER 1 EACH in D5W 250 ML IV SCH ×2 (09:28→20:36)
[2016-07-16 12:00] VITALS: BP 126/59
[2016-07-16 12:24] LABS: ABG BASE EXCESS -4.1 (-2.0-2.0); ABG HCO3 18.8 MEQ/L (22.0-26.0); ABG PARTIAL PRESSURE CO2 28.1 mmHg (35.0-45.0); ABG PARTIAL PRESSURE O2 72.7 mmHg (75.0-100.0); ABG TOTAL CO2 19.7 MEQ/L (22.0-29.0); ABG pH (ARTERIAL) 7.444 UNITS (7.350-7.450)
--- NOTE | 2016-07-16 15:23 | IPN ---
DATE: 07/16/2016 SUBJECTIVE: A 55-year-old male seen at bedside, somewhat lethargic but he does not appear to be any acute distress. His caregiver is present at bedside as well. He does have a history of alcohol use/abuse. He did have some hyponatremia. He did respond to questions with sternal rub. He was able to follow commands but again does appear to be somewhat lethargic. He has not received any doses of Serax which is currently on hold due to lethargy. OBJECTIVE: VITAL SIGNS: Temperature is 97.8, pulse 100 and regular, respiratory rate 18, blood pressure 126/59, SPO2 is 99% on two liters. GENERAL: The patient appears to be in no acute distress. He is alert. HEENT: Unremarkable. LUNGS: Occasional rhonchi, clears with cough on the right, otherwise clear. HEART: Regular rate and rhythm. ABDOMEN: Soft. EXTREMITIES: No edema. No calf tenderness. NEUROLOGIC: [employer] strength is equal. He is not demonstrating any focal neurologic deficits. LABORATORY DATA: ABG shows pH of 7.44, pCO2 of 28.1, pO2 of 72.7. White count is 17.7, hemoglobin 12.1, platelets are 53,000. Sodium 130, potassium 3.5, chloride 98, bicarbonate 21, anion gap 11, BUN 31, creatinine is 1.32 down from 1.41, lactic acid is 2, calcium 8.2, magnesium 2.4, AST is 68, ALT 28, alkaline phosphatase is 64, albumin is 1.8. Blood cultures remain negative times 24 hours. Respiratory virus panel is negative. Urine culture is negative. Repeat chest x-ray, portable, did demonstrate still a right upper lobe infiltrate present on CT and previous chest x-ray. No acute changes. Brain MRI report is pending at this time. ASSESSMENT AND PLAN: 1. Metabolic encephalopathy with recent change in sodium with hyponatremia. This has been adjusted upward since his arrival. He has went from 123-130 over the last 24-48 hours. My concern was to rule out any osmotic demyelination. The MRI is pending at this time. It likely is multifactorial and possibly related to the underlying pneumonia as well as history of alcoholism. 2. Acute respiratory failure, secondary to community-acquired pneumonia. Continue with IV Zithromax and Rocephin. He did receive a fluid bolus on admission and he is continued with some IV fluids with maintenance dose of 75 that I increased to 90 mL an hour. 3. History of chronic obstructive pulmonary disease (COPD). Continue on DuoNebs. 4. Acute kidney injury. His creatinine does appear to be improving. We will continue to follow. 5. Opacity in the left ventricle on chest imaging. According to the admission, the emergency department (ED) physician spoke to Dr. Somers about this and he recommend a routine echocardiogram for followup. 6. Alcohol dependence. We are currently holding Serax as well as Ativan due to lethargy. We will continue with multivitamin, folic acid, and thiamine. Arterial blood gas (ABG) today is unremarkable. Again, MRI of the brain is pending at this time. 7. Hypomagnesemia, repleted. 8. Hypertension, stable. We will continue to follow. 9. Known pulmonary nodules, noted first approximately six years ago. He may need outpatient followup with pulmonology and possible biopsy after discharge. 10. Deep vein thrombosis (DVT) prophylaxis with thromboembolic-deterrent stockings (TEDS) and sequentials. DISPOSITION: Guarded at this time. We will continue to monitor closely.
--- NOTE | 2016-07-16 15:42 | REP ---
MR BRAIN WITHOUT CONTRAST: HISTORY: Altered mental status. COMPARISON: CT 07/14/2016. A small focus of increased signal intensity on diffusion weighted images is present in the vermis. This is isointense in signal intensity on ADC images and is consistent with a subacute infarction. A small area of increased signal intensity on T2-weighted images is present in the right cerebellum This represents an old lacunar infarction. Areas of increased signal intensity on T2-weighted images are present in the periventricular and subcortical white matter. This represents small vessel ischemic disease. There is no intraparenchymal hemorrhage, mass, or midline shift. The ventricular system and cortical sulci as well as subarachnoid space in the posterior fossa are dilated consistent with moderate volume loss. There is no extracerebral collection. The sinuses are clear. IMPRESSION: 1. Small subacute vermian infarction. 2. Old right cerebellar lacunar infarction. 3. Small vessel ischemic disease. 4. Moderate volume loss. Signed by Maury Fuentes MD 07/16/2016 03:43 P
[2016-07-16 15:58] VITALS: BP 148/83
--- NOTE | 2016-07-16 15:59 | REP ---
Chest one-view HISTORY: Shortness of breath Comparison: With 06/07 Patchy density is present in the right upper and lower lobes and left lower lobe consistent with bilateral infiltrates. The lower lobe infiltrates are new. The heart is normal in size. The pulmonary vasculature is normal in appearance. Impression 1. Right upper lobe infiltrate unchanged compared to the previous study. 2. Bibasilar infiltrates new compared to the previous study. Signed by Maury Fuentes MD 07/16/2016 03:51 P
[2016-07-16] MEDS: AZITHROMYCIN INJ 500 MG, VIAL MATE ADAPTER 1 EACH in D5W 250 ML IV SCH (17:29)
[2016-07-16 20:33] VITALS: BP 132/74
[2016-07-17] VITALS (7 sets, daily range): BP systolic 118–150; BP diastolic 69–95
[2016-07-17] MEDS: IPRATROPIUM 0.5MG/ALBUTEROL 2.5MG INH SOL UD 3ML (DUONEB)(J7620) NEB SCH ×6 (04:00→23:56)
[2016-07-17] MEDS: cefTRIAXone SOD 1 GM in D5W MINI-BAG PLUS 50 ML IV SCH (04:25)
[2016-07-17 05:45] LABS: BASO % 0.3 % (0.0-1.0); EOS % 0.3 % (0.0-3.0); LARGE UNSTAINED CELL # 0.4 K/mm3 (0.0-0.4); LARGE UNSTAINED CELL % 2.6 % (0.0-4.0); LYMPH # 0.7 K/mm3 (1.5-4.5); LYMPH % 2.1 % (24.0-44.0); MEAN CORPUSCULAR HGB CONC 32.4 g/dl (32.0-36.5); MEAN CORPUSCULAR VOLUME 98.8 fl (80.0-96.0); MONO # 0.6 K/mm3 (0.0-0.8); MONO % 3.7 % (0.0-5.0); NEUTROPHILS # 14.1 K/mm3 (1.8-7.7); RED CELL DISTRIBUTION WIDTH 14.1 % (11.5-14.5); WHITE BLOOD COUNT 15.5 K/mm3 (4.0-10.0)
[2016-07-17] MEDS: OXAZEPAM 15 MG CAP PO SCH ×2 (06:00→17:57)
[2016-07-17 06:04] LABS: ALBUMIN 1.7 GM/DL (3.2-5.2); ALBUMIN/GLOBULIN RATIO 0.49 (1.00-1.93); ALKALINE PHOSPHATASE 83 U/L (45-117); ALT/SGPT 88 U/L (12-78); ANION GAP 9 MEQ/L (8-16); AST/SGOT 226 U/L (15-37); BLOOD UREA NITROGEN 26 MG/DL (7-18); CALCIUM LEVEL 8.2 MG/DL (8.5-10.1); CARBON DIOXIDE LEVEL 22 MEQ/L (21-32); CHLORIDE LEVEL 102 MEQ/L (98-107); CREATININE FOR GFR 0.93 MG/DL (0.70-1.30); GLOMERULAR FILTRATION RATE > 60.0 (>56); GLUCOSE, FASTING 104 MG/DL (70-105); MAGNESIUM LEVEL 2.1 MG/DL (1.8-2.4); POTASSIUM SERUM 3.1 MEQ/L (3.5-5.1); SODIUM LEVEL 133 MEQ/L (136-145); TOTAL PROTEIN 5.2 GM/DL (6.4-8.2)
[2016-07-17 06:10] LABS: PLATELET COUNT, AUTOMATED 48 k/mm3 (150-450)
[2016-07-17] MEDS ORDERED: ASPIRIN 81 MG ENTERIC TAB PO SCH (09:00)
[2016-07-17] MEDS: VANCOMYCIN HCL 1,000 MG, VIAL MATE ADAPTER 1 EACH in D5W 250 ML IV SCH (09:15)
--- NOTE | 2016-07-17 09:31 | CR ---
DATE OF CONSULTATION: 07/16/2016 REFERRING PHYSICIAN: Dr. Jerez. REASON FOR CONSULTATION: Altered mental status and stroke. HISTORY OF PRESENT ILLNESS: Otoniel Pelayo is a 55-year-old -[place] male with history of alcohol abuse, hypertension and tobacco abuse who was admitted at [facility] due to progressive shortness of breath and increased weakness and lethargy. He has lost 30 pounds in weight. According to , he does not take care of himself. He has not seen a doctor in more than 5 years. The patient requires assistance in daily living and ambulation. The patient is a poor historian. He is unable to provide much information. He has been drowsy and not answering most of the questions for the nurses as well. His MRI scan of brain showed a small left vermis ischemic acute stroke. He denies any headaches, neck or back pain. PAST MEDICAL HISTORY: Alcohol abuse, tobacco abuse, possible chronic obstructive pulmonary disease (COPD), lung nodules. SOCIAL HISTORY: The patient smokes two packs per day for more than 30 years. He drinks six beers every day for the last 30 or more years. He lives with his . FAMILY HISTORY: His denies any family history of stroke. I spoke to her on the phone. MEDICATIONS: Ibuprofen 200 mg by mouth daily REVIEW OF SYSTEMS: All systems were reviewed and were found to be noncontributory except as mentioned in history of present illness. PHYSICAL EXAMINATION: Temperature 97.9, pulse 106, respiratory 13, blood pressure 148/83. Heart regular rate and rhythm. Lungs: Clear to auscultation. He has decreased peripheral pulses. He is extremely unkempt. He has large nails of his toes. He has poor personal hygiene. Pupils are 4 mm bilaterally without nystagmus. The patient is arousable. He is a poor historian and at times seems to have difficulty following commands. He is oriented to self mostly. No facial weakness. Tongue and uvula are midline. 5/5 strength in all four extremities. Deep tendon flexes are 1+ throughout. Plantars are downgoing. No dysmetria. Gait could not be tested. DIAGNOSTIC STUDIES: MRI scan of brain was reviewed and showed a small left vermis ischemic stroke. ASSESSMENT: 1. Small left vermis ischemic stroke. 2. Alcohol induced dementia. 3. Chronic alcohol and tobacco abuse. PLAN: 1. Await results of his MRA brain and carotid ultrasound. 2. Aspirin 325 mg by mouth daily or 300 mg per rectum daily. 3. He must quit smoking and alcohol intake. 4. Thiamine 100 mg by mouth or intravenous daily. He should be on precautions for delirium tremors. He is on Serax 15 mg by mouth three times daily and Ativan 1 mg every 4 hours as needed.
[2016-07-17] MEDS: NS 1,000 ML IV SCH (09:37)
--- NOTE | 2016-07-17 13:03 | PHACANCOPD ---
PHARMACY VANCOMYCIN DOSING Pt Demographics Demographics Patient Age:55 , Weight:52.300 , Gender: male Adjusted Body Weight Date: 07/15/16, Adjusted Body Weight: [52] Kg Events Past 24 Hours Events Past 24 Hours: YES: Elevation in WBC, NO: Dialysis, Diuretic Therapy, Change in CrCl, Fever, Pending Diagnostics, Pending Procedures, Other Vancomycin Vancomycin indication: BACTEREMIA Vancomycin Target Ranges: 15-20 mcg/ml Vancomycin Load Y/N: No Load Dose Date Time Vancomycin Load Dose: Date: Time: Vancomycin Dose Date: 07/17/16. Current Vancomycin Dose: [1GM IV Q12H@09] Date: 07/16/16. Current Vancomycin Dose: [1 GRAM IV Q12H @ 0900] Date: 07/15/16. Current Vancomycin Dose: [1G IV Q24H @10] Intermittent Dosing?: No Labs Labs Item Value Date Time White Blood Count 7.1 K/mm3 07/15/16 0522 White Blood Count 17.7 K/mm3 H 07/16/16 0531 White Blood Count 15.5 K/mm3 H 07/17/16 0523 Creatinine 1.41 MG/DL H 07/15/16 2150 Creatinine 1.32 MG/DL H 07/16/16 0531 Creatinine 0.93 MG/DL 07/17/16 0523 Vancomycin Level Trough 14.2 UG/ML 07/17/16 0845 Vital Signs Label Value Date Time Patient Temperature 97.6 degrees F 07/17/16 1200 Temperature Source Temporal 07/17/16 1200 Micro Microbiology 07/15/16 Blood Culture - Preliminary, Resulted No Growth after 48 hours. All Specime... 07/15/16 Blood Culture - Preliminary, Resulted No Growth after 48 hours. All Specime... 07/14/16 Blood Culture - Final, Complete Streptococcus Pneumoniae 07/14/16 Blood Culture - Preliminary, Resulted 07/15/16 Respiratory Virus Panel (PCR) (NISREEN) - Final, Complete 07/15/16 Urine Culture - Final, Complete Creatinine Clearance Date:07/15/16. Creatinine Clearance: [42.2]. Pending Labs VANCO TROUGH 07/17 @ 0800 Assessment and Plan Maintaining Current Dose?: Yes Reason for dose change: No Dose Change Pharmacist Note Pharmacist Note 07/17: Patient's trough came back at 14.2. His SCr continues to improve. His WBC has increased over the past couple days. He is afebrile. We will continue to monitor and make adjustments as necessary. Date: 07/16/16. Pharmacist note: Patients WBCs increased and SCr has improved. Vanco dose was changed to 1 gram IV Q12H with a trough scheduled for 07/17 @ 0800. Blood cultures are still pending. Continue to monitor and adjust dose as needed. Date: 07/15/16. Pharmacist note: PT is a 55y/o male being treated for bacteremia blood and urine cultures pending, target trough 15-20mcg/ml. Pt has been treated with vancomycin here at [facility] in the past. To achieve goal he is scheduled to receive 1g q 24h starting 07/15 @10. We will continue to monitor and change dose as needed. SARAH BENZ PHARMACY Jul 17, 2016 13:03
[2016-07-17] MEDS ORDERED: POTASSIUM CHLORIDE 10 MEQ SR TABLET PO ONE (15:00)
[2016-07-17] MEDS: ATORVASTATIN 20 MG TAB PO SCH (15:41)
[2016-07-17] MEDS: ASPIRIN 325 MG TAB PO SCH (15:42)
[2016-07-17] MEDS: THIAMINE 100 MG TAB PO SCH (15:42)
--- NOTE | 2016-07-17 15:59 | IPN ---
DATE: 07/17/2016 55-year-old gentleman. He does appear to be more awake today than yesterday, able to answer questions and is alert and oriented times three. Denies chest pain, lightheadedness, dizziness, difficulty swallowing. No nausea or vomiting. OBJECTIVE: Temperature is 97.6, pulse 102 and regular, respiratory rate 18, 143/90, SPO2 is 99% on 2 liters. General: The patient appears to be in no acute distress. He is alert. HEENT: Unremarkable. Lungs: Clear. Heart: Regular rate and rhythm. Abdomen: Soft. He does have a Vazquez catheter in place with good urine output. Will go ahead and discontinue this today and check postvoid residuals to decrease risk of catheter associated urinary tract infection. He did have a one-time blood culture that was positive for Streptococcus pneumoniae. Will plan on de-escalating his antibiotics. ASSESSMENT/PLAN: 1. Metabolic encephalopathy with sodium correction. He does appear to be doing much better today. His brain MRI did show an infarct as outlined previously. 2. Step Pneumoniae on blood culture with community acquired pneumonia. Will de-escalate his antibiotics for appropriate coverage today. 3. Acute respiratory failure, resolved. 4. History of chronic obstructive pulmonary disease (COPD). Continue DuoNebs. 5. Acute kidney injury, resolved. 6. Opacification of the left ventricle seen on CT scan. His echocardiogram where apparent left ventricle (LV) mass speculated on the CT scan was a papillary muscle. No other separate intracardiac mass is visible. He does have findings consistent with dilated cardiomyopathy. Moderately severe impaired global LV systolic function, borderline left atrial enlargement. Normal IVC and mild mitral annular thickening with moderately severe to severe mitral insufficiency. He does appear to be euvolemic. I do wonder if some of this related to his alcoholism. 7. Alcohol abuse. Will continue to monitor for withdrawal. Serax as needed (p.r.n.). will continue with thiamine and folic acid as well as multivitamin. 8. Hypokalemia. Will replete. Will check his magnesium as well. 9. Hypertension, stable. Will continue to follow. 10. Known pulmonary nodules. Will need to follow up with pulmonary outpatient. 11. Deep venous thrombosis (DVT) prophylaxis, thromboembolism deterrents (TEDs) and sequentials. DISPOSITION: Appreciate Dr. Morejon's input. He has been started on aspirin and Lipitor at this time. Appreciate physical therapy (PT), occupational therapy (OT), will leave him on telemetry for another 24 hours. Continue with neuro checks. Switching doxycycline for antibiotic coverage.
[2016-07-17] MEDS: DOXYCYCLINE HYCLATE 100 MG TAB PO SCH (20:02)
[2016-07-18 04:00] VITALS: BP 147/65
[2016-07-18] MEDS: IPRATROPIUM 0.5MG/ALBUTEROL 2.5MG INH SOL UD 3ML (DUONEB)(J7620) NEB SCH ×6 (04:00→23:37)
[2016-07-18] MEDS: NS 1,000 ML IV SCH ×3 (04:25→20:22)
[2016-07-18] MEDS: OXAZEPAM 15 MG CAP PO SCH (05:34)
[2016-07-18 06:23] LABS: BASO # 0.1 K/mm3 (0.0-0.2); EOS # 0.2 K/mm3 (0.0-0.50); EOS % 1.3 % (0.0-3.0); LARGE UNSTAINED CELL # 0.9 K/mm3 (0.0-0.4); LARGE UNSTAINED CELL % 7.1 % (0.0-4.0); LYMPH # 1.2 K/mm3 (1.5-4.5); LYMPH % 3.3 % (24.0-44.0); MEAN CORPUSCULAR HEMOGLOBIN 31.4 pg (27.0-33.0); MEAN CORPUSCULAR HGB CONC 32.2 g/dl (32.0-36.5); MEAN CORPUSCULAR VOLUME 97.7 fl (80.0-96.0); MONO # 0.6 K/mm3 (0.0-0.8); NEUTROPHILS # 9.8 K/mm3 (1.8-7.7); NEUTROPHILS % 82.3 % (36.0-66.0); RED CELL DISTRIBUTION WIDTH 14.3 % (11.5-14.5); WHITE BLOOD COUNT 11.9 K/mm3 (4.0-10.0)
[2016-07-18 06:25] LABS: PLATELET COUNT, AUTOMATED 60 k/mm3 (150-450)
[2016-07-18 06:41] LABS: ALBUMIN 1.7 GM/DL (3.2-5.2); ALBUMIN/GLOBULIN RATIO 0.47 (1.00-1.93); ALKALINE PHOSPHATASE 86 U/L (45-117); ALT/SGPT 82 U/L (12-78); ANION GAP 10 MEQ/L (8-16); AST/SGOT 129 U/L (15-37); BILIRUBIN,TOTAL 2.4 MG/DL (0.2-1.0); BLOOD UREA NITROGEN 19 MG/DL (7-18); CALCIUM LEVEL 7.8 MG/DL (8.5-10.1); CARBON DIOXIDE LEVEL 21 MEQ/L (21-32); CHLORIDE LEVEL 108 MEQ/L (98-107); CREATININE FOR GFR 0.75 MG/DL (0.70-1.30); GLOMERULAR FILTRATION RATE > 60.0 (>56); GLUCOSE, FASTING 88 MG/DL (70-105); MAGNESIUM LEVEL 1.9 MG/DL (1.8-2.4); POTASSIUM SERUM 3.2 MEQ/L (3.5-5.1); SODIUM LEVEL 139 MEQ/L (136-145); TOTAL PROTEIN 5.3 GM/DL (6.4-8.2)
[2016-07-18 08:00] VITALS: BP 171/97
[2016-07-18] MEDS ORDERED: POTASSIUM CHLORIDE 10 MEQ SR TABLET PO ONE (08:00)
[2016-07-18 08:40] LABS: ABG BASE EXCESS -6.5 (-2.0-2.0); ABG HCO3 19.6 MEQ/L (22.0-26.0); ABG PARTIAL PRESSURE O2 77.7 mmHg (75.0-100.0); ABG STANDARD HCO3 19.1 MEQ/L (22.0-26.0); ABG TOTAL CO2 20.8 MEQ/L (22.0-29.0); ABG pH (ARTERIAL) 7.297 UNITS (7.350-7.450)
--- NOTE | 2016-07-18 09:06 | REP ---
Portable chest, single AP view, patient sitting: Comparison is 07/16/2016. The bilateral infiltrates are not significantly changed taking into consideration differences in radiographic technique. Cardiac size appears borderline, however there has magnification from portable positioning. Impression: No significant interval change except for radiographic technique. Signed by Keshav Carrion MD 07/18/2016 08:58 A
--- NOTE | 2016-07-18 09:29 | REP ---
CAROTID ULTRASOUND: Real-time ultrasound evaluation and duplex Doppler interrogation of the extracranial carotid vasculature is performed. There is mild to moderate plaquing and narrowing in both carotid bulbs extending into the internal and external carotid arteries. Luminal narrowing is less than 50%. There is no evidence of hemodynamically significant stenosis of either internal carotid artery. Normal flow velocities are seen. The left vertebral artery demonstrates normal direction of flow. The right vertebral artery is not visualized. Mildly prominent lymph node in the right neck soft tissues measures 1.0 x 2.3 x 1.1 cm. RIGHT LEFT Peak systolic velocity ICA 90.7 cm/s 81.1 cm/s End diastolic velocity ICA 16.6 cm/s 20.9 cm/s Peak systolic velocity CCA 75.4 cm/s 79.9 cm/s Peak systolic velocity ECA 69.9 cm/s 79.9 cm/s ICA/CCA ratio 1.2 1.0 IMPRESSION: Bilateral luminal narrowing of the internal carotid arteries less than 50%. No evidence of hemodynamically significant stenosis. Signed by Keshav James MD 07/18/2016 09:20 A
[2016-07-18] MEDS: DOXYCYCLINE HYCLATE 100 MG TAB PO SCH ×2 (09:31→20:51)
[2016-07-18] MEDS: ATORVASTATIN 20 MG TAB PO SCH (09:31)
[2016-07-18] MEDS: THIAMINE 100 MG TAB PO SCH (09:31)
[2016-07-18] MEDS: ASPIRIN 325 MG TAB PO SCH (09:31)
[2016-07-18] MEDS: KCL 10MEQ IN 100ML SWI (KRUN) 10 MEQ in APPROPRIATE DILUENT 1 EA IV SCH ×6 (09:49→12:45)
[2016-07-18 12:00] VITALS: BP 162/104
--- NOTE | 2016-07-18 14:15 | IPN ---
DATE: 07/18/2016 55-year-old male seen at bedside. He does appear to be a little more lethargic. He did receive a dose of Serax and he does appear to have some slight respiratory discomfort with complaint of shortness of breath but no chest pain. No abdominal pain. OBJECTIVE: Temperature is 96.8, pulse is 104, respiratory rate is 20, SPO2 on room air did drop to 76%. It did come up nicely with 2 liters of oxygen to 95%. Repeat blood pressure 147/65. GENERAL: The patient appears to be short of breath but is able speak in complete sentences. HEENT: Unremarkable. LUNGS: He does have diminished bibasilar breath sounds, occasional rhonchi on the right clears with cough. HEART: Regular rate and rhythm. ABDOMEN: Soft. EXTREMITIES: No edema. No calf tenderness. He does have some generalized weakness. He did have some fasciculations of the left bicep, but this does appear to be much improved and asterixis is noted on the hands. LABORATORY DATA: White count is 11.9 down from 15.5, hemoglobin is 10.5 and platelets are 60,000. Sodium is 139, potassium 3.2, which we will supplement, chloride 108, bicarb 21, anion gap 10, BUN is 19, creatinine 0.75, glucose is 88, calcium is 7.8, magnesium 1.9, AST 129, ALT 82, alkaline phosphatase is 86. We will go ahead and check a hepatitis panel on him as well. Albumin is 1.7. Portable chest x-ray no significant interval change except for possible radiographic technique. He does continue with bilateral infiltrates. ASSESSMENT/PLAN: 1. Metabolic encephalopathy. Sodium has corrected nicely. Will continue to follow his electrolytes. 2. Strep pneumoniae on blood cultures times two. Likely from community-acquired pneumonia. Continue on doxycycline. 3. Acute respiratory failure. Will place aspiration precautions on board, head of bed greater 30 degrees. I did hold his Serax since this does appear to make him more lethargic. Ativan as needed has been ordered in case he does some agitated. 4. Alcohol abuse. Will continue to monitor for withdrawal symptoms. 5. Chronic obstructive pulmonary disease (COPD). Continue DuoNebs. 6. Acute kidney injury, resolved. 7. Opacification initially seen on CT scan involving the left ventricle. 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 8. Findings consistent with dilated cardiomyopathy on 2D echo. Left ventricular ejection fraction is 35-40%. 9. Hypokalemia. We will continue to replete. Continue to follow his magnesium. 10. Hypertension, stable. 11. 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 Appreciate Dr. Morejon's input. Continue on aspirin and Lipitor. DISPOSITION: He will need to continue to participate with physical therapy, occupational therapy, and speech therapy. I would like to keep him on telemetry another 24 hours and we will see if we can progress him to the medical floor. There is a possibility he may need subacute rehab. Patient and family services (PFS) has been consulted.
[2016-07-18 16:00] VITALS: BP 144/83
[2016-07-18 19:53] VITALS: BP 164/100
[2016-07-18 23:59] VITALS: BP 132/84
[2016-07-19] MEDS: IPRATROPIUM 0.5MG/ALBUTEROL 2.5MG INH SOL UD 3ML (DUONEB)(J7620) NEB SCH ×6 (03:13→23:44)
[2016-07-19 04:00] VITALS: BP 174/84
[2016-07-19 05:56] LABS: DIFF SLIDE NUMBER 18; MEAN CORPUSCULAR HEMOGLOBIN 35.7 pg (27.0-33.0); MEAN CORPUSCULAR HGB CONC 35.4 g/dl (32.0-36.5); MEAN CORPUSCULAR VOLUME 100.9 fl (80.0-96.0); PLATELET COUNT, AUTOMATED 72 k/mm3 (150-450); RED CELL DISTRIBUTION WIDTH 14.3 % (11.5-14.5); WHITE BLOOD COUNT 9.7 K/mm3 (4.0-10.0)
[2016-07-19 06:09] LABS: ALBUMIN 1.6 GM/DL (3.2-5.2); ALBUMIN/GLOBULIN RATIO 0.43 (1.00-1.93); ALKALINE PHOSPHATASE 86 U/L (45-117); ALT/SGPT 64 U/L (12-78); ANION GAP 9 MEQ/L (8-16); AST/SGOT 64 U/L (15-37); BILIRUBIN,TOTAL 1.8 MG/DL (0.2-1.0); BLOOD UREA NITROGEN 18 MG/DL (7-18); CALCIUM LEVEL 7.6 MG/DL (8.5-10.1); CARBON DIOXIDE LEVEL 21 MEQ/L (21-32); CHLORIDE LEVEL 112 MEQ/L (98-107); CREATININE FOR GFR 0.69 MG/DL (0.70-1.30); GLOMERULAR FILTRATION RATE > 60.0 (>56); GLUCOSE, FASTING 134 MG/DL (70-105); MAGNESIUM LEVEL 1.7 MG/DL (1.8-2.4); POTASSIUM SERUM 3.3 MEQ/L (3.5-5.1); SODIUM LEVEL 142 MEQ/L (136-145); TOTAL PROTEIN 5.3 GM/DL (6.4-8.2)
[2016-07-19] MEDS: NS 1,000 ML IV SCH ×2 (06:36→15:23)
[2016-07-19 06:41] LABS: EOSINOPHILS 2 % (0-5)
[2016-07-19 08:00] VITALS: BP 148/94
[2016-07-19] MEDS: ASPIRIN 325 MG TAB PO SCH (09:34)
[2016-07-19] MEDS: THIAMINE 100 MG TAB PO SCH (09:35)
[2016-07-19] MEDS: DOXYCYCLINE HYCLATE 100 MG TAB PO SCH ×2 (09:35→20:53)
[2016-07-19] MEDS: ATORVASTATIN 20 MG TAB PO SCH (09:35)
[2016-07-19 11:03] VITALS: BP 115/82
[2016-07-19] MEDS: MAG SULF 1GM/100ML (MAG RUN) 1 GM in APPROPRIATE DILUENT 1 EA IV SCH ×2 (11:43→12:42)
[2016-07-19 14:00] VITALS: BP 126/74
--- NOTE | 2016-07-19 14:56 | IPN ---
DATE: 07/19/2016 A 55-year-old gentleman seen at bedside, resting comfortably. He is much more alert, less lethargic today and doing well with his breakfast meal. OBJECTIVE: Temperature 98.7, pulse 104, respiratory rate 24, blood pressure 148/94, SpO2 100% on 2 liters. GENERAL: The patient appears to be in no acute distress. He is alert, pleasant. HEENT: Unremarkable. LUNGS: Clear. HEART: Regular rate and rhythm. ABDOMEN: Soft. NT/ND . Positive bowel sounds. No masses. No rebounds. EXTREMITIES: No edema. No calf tenderness. LABORATORY: White count 9.7, hemoglobin 10.5, platelets 72,000. Sodium 142, potassium 3.3, chloride 112, bicarbonate 21, anion gap 9, BUN 18, creatinine 0.69, glucose 134, magnesium 1.7, calcium 2.6. AST 64, ALT 64, alkaline phosphatase 86. His ammonia level yesterday was 18. Albumin is 1.6. Hepatitis panel is negative. ASSESSMENT AND PLAN: 1. Metabolic encephalopathy. Much improved. Sodium is corrected. 2. Streptococcus pneumoniae. Continue on doxycycline for community-acquired pneumonia. 3. Acute respiratory failure. Much improved. We were concerned about aspiration precautions. I think he was oversedated. He does seem to be doing much better and tolerating his meals. 4. Alcohol abuse. We will continue to monitor for withdrawal. 5. Chronic obstructive pulmonary disease (COPD). Continue with DuoNebs. 6. Acute kidney injury. Resolved. 7. Hypokalemia. We will replete. 8. Hypomagnesemia. We will replete. 9. Dilated cardiomyopathy on 2D echocardiogram with ejection fraction of 35%-40%. 10. Hypertension. Stable. 11. Subacute vermian infarction. Old right cerebellar lacunar infarction and small vessel ischemic disease on MRI. Appreciate Dr. Morejon's input. Continue aspirin and Lipitor. DISPOSITION: We will go ahead and transfer him to the general medical floor today. Continue with occupational therapy, physical therapy and speech therapy. Patient and Family Services (PFS) is on board and this patient may need to be considered for subacute rehabilitation versus placement. [facility]
[2016-07-19] MEDS ORDERED: POTASSIUM CHLORIDE 10 MEQ SR TABLET PO ONE (15:00)
[2016-07-19 20:50] VITALS: BP 138/84
[2016-07-19] MEDS: ACETAMINOPHEN TAB 650MG DOSE (2X325MG) PO PRN (20:57)
[2016-07-20] MEDS: NS 1,000 ML IV SCH ×3 (01:49→21:26)
[2016-07-20] MEDS: IPRATROPIUM 0.5MG/ALBUTEROL 2.5MG INH SOL UD 3ML (DUONEB)(J7620) NEB SCH ×6 (04:00→23:04)
[2016-07-20 06:11] LABS: DIFF SLIDE NUMBER 10; MEAN CORPUSCULAR HEMOGLOBIN 32.2 pg (27.0-33.0); MEAN CORPUSCULAR HGB CONC 32.1 g/dl (32.0-36.5); MEAN CORPUSCULAR VOLUME 100.3 fl (80.0-96.0); RED CELL DISTRIBUTION WIDTH 14.5 % (11.5-14.5); WHITE BLOOD COUNT 8.8 K/mm3 (4.0-10.0)
[2016-07-20 06:13] LABS: PLATELET COUNT, AUTOMATED 91 k/mm3 (150-450)
[2016-07-20 06:33] LABS: ALBUMIN 1.6 GM/DL (3.2-5.2); ALBUMIN/GLOBULIN RATIO 0.42 (1.00-1.93); ALKALINE PHOSPHATASE 97 U/L (45-117); ALT/SGPT 72 U/L (12-78); ANION GAP 7 MEQ/L (8-16); AST/SGOT 92 U/L (15-37); BILIRUBIN,TOTAL 1.6 MG/DL (0.2-1.0); BLOOD UREA NITROGEN 15 MG/DL (7-18); CALCIUM LEVEL 7.5 MG/DL (8.5-10.1); CARBON DIOXIDE LEVEL 22 MEQ/L (21-32); CHLORIDE LEVEL 115 MEQ/L (98-107); GLOMERULAR FILTRATION RATE > 60.0 (>56); GLUCOSE, FASTING 121 MG/DL (70-105); POTASSIUM SERUM 3.4 MEQ/L (3.5-5.1); SODIUM LEVEL 144 MEQ/L (136-145); TOTAL PROTEIN 5.4 GM/DL (6.4-8.2)
[2016-07-20 06:35] VITALS: BP 146/90
[2016-07-20] MEDS: DOXYCYCLINE HYCLATE 100 MG TAB PO SCH (08:06)
[2016-07-20] MEDS: ATORVASTATIN 20 MG TAB PO SCH (08:06)
[2016-07-20] MEDS: THIAMINE 100 MG TAB PO SCH (08:06)
[2016-07-20] MEDS: ASPIRIN 325 MG TAB PO SCH (08:06)
[2016-07-20] MEDS ORDERED: POTASSIUM CHLORIDE 10 MEQ SR TABLET PO ONE (09:45)
[2016-07-20] MEDS: MOM 30ML SUSPENSION UDC PO PRN (10:15)
[2016-07-20] MEDS: DOCUSATE SODIUM 100 MG CAP PO SCH ×2 (10:16→20:37)
[2016-07-20] MEDS: PIPERACILLIN/TAZOBACTAM SOD 3.375 GM in D5W MINI-BAG PLUS 50 ML IV SCH ×2 (11:05→18:37)
[2016-07-20 14:00] VITALS: BP 150/99
--- NOTE | 2016-07-20 15:09 | IPN ---
DATE: 07/20/2016 55-year-old male seen at bedside. He is resting comfortably. He seems to be much more alert today and active in conversation. He denies chest pain, nausea, vomiting, cough. Apparently, he had a temperature through the night last night, but he is unable to recall any symptoms of fevers, chills, sweats or rigors. OBJECTIVE: Temperature 99.2, T-max of 101.5 through the night, pulse 107 and regular, respiratory rate 18, blood pressure (BP) 146/90, SPO2 is 99% on 2 liters. General: The patient appears to be in no acute distress. He is alert and oriented, pleasant talk to. HEENT: Unremarkable. Lungs: Diminished bibasilar breath sounds, occasional wheeze bilaterally. Heart: Regular rate and rhythm. Abdomen: Soft. Extremities: No edema. No calf tenderness. LABORATORY DATA: White count is 8.8, hemoglobin 9.4 and platelets 91,000. Sodium 141, potassium 3.4, chloride 115, bicarb 22, anion gap 7, BUN is 15, creatinine 0.7, glucose 121, AST 92, ALT 72, alkaline phosphatase 97, magnesium 2.0. Albumin is 1.6. Blood cultures positive times two for Strep pneumoniae, pansensitive, with good MICs. ASSESSMENT/PLAN: 1. Febrile illness with positive Streptococcal pneumoniae blood cultures and community acquired pneumonia. We had tried de-escalating to oral doxycycline. However, I am concerned that he did spike a significant fever last night. Will repeat blood cultures and will start him back on IV Zosyn for the time being. 2. Acute respiratory failure, does appear to be much improved. We were concerned with aspiration precautions. He does not appear to be as oversedated as previously. Will continue with the pureed meals for the time being and see how he continues to improve. 3. Metabolic encephalopathy, does appear to be much improved. Sodium has been corrected and no further issues. His MRI of the brain did show a subacute infarct, but no other acute findings were noted. 4. Subacute vermian infarct with old right cerebellar lacuna infarct and small vessel ischemic disease. Appreciate Dr. Morejon's input. Will continue on aspirin and Lipitor. 5. Alcohol abuse. Will continue to monitor for withdrawal. 6. Chronic obstructive pulmonary disease (COPD). Continue DuoNebs. 7. Hypokalemia. Will replete. 8. Hypomagnesemia. Resolved. 9. Dilated cardiomyopathy on 2-D echo with ejection fraction of 35-40%. This is likely secondary to his alcoholism. 10. Hypertension, stable. DISPOSITION: The patient continues on the general medical floor. Physical therapy (PT) and occupational therapy (OT) is on board as well as Patient and Family Services (PFS). My concern is that he has not done well with PT and OT and he may need to be considered for subacute rehabilitation.
[2016-07-20 20:50] VITALS: BP 151/97
[2016-07-21] MEDS: PIPERACILLIN/TAZOBACTAM SOD 3.375 GM in D5W MINI-BAG PLUS 50 ML IV SCH ×3 (03:00→18:11)
[2016-07-21] MEDS: IPRATROPIUM 0.5MG/ALBUTEROL 2.5MG INH SOL UD 3ML (DUONEB)(J7620) NEB SCH ×6 (03:25→23:01)
[2016-07-21 06:34] LABS: BASO # 0.1 K/mm3 (0.0-0.2); BASO % 0.8 % (0.0-1.0); EOS % 0.4 % (0.0-3.0); LARGE UNSTAINED CELL # 0.7 K/mm3 (0.0-0.4); LARGE UNSTAINED CELL % 6.8 % (0.0-4.0); LYMPH # 0.6 K/mm3 (1.5-4.5); LYMPH % 6.2 % (24.0-44.0); MEAN CORPUSCULAR HEMOGLOBIN 32.8 pg (27.0-33.0); MEAN CORPUSCULAR HGB CONC 32.2 g/dl (32.0-36.5); MEAN CORPUSCULAR VOLUME 102.1 fl (80.0-96.0); MONO # 0.5 K/mm3 (0.0-0.8); MONO % 5.2 % (0.0-5.0); NEUTROPHILS # 7.7 K/mm3 (1.8-7.7); NEUTROPHILS % 80.5 % (36.0-66.0); PLATELET COUNT, AUTOMATED 108 k/mm3 (150-450); RED CELL DISTRIBUTION WIDTH 14.7 % (11.5-14.5); WHITE BLOOD COUNT 9.6 K/mm3 (4.0-10.0)
[2016-07-21 06:40] LABS: ALBUMIN 1.8 GM/DL (3.2-5.2); ALBUMIN/GLOBULIN RATIO 0.49 (1.00-1.93); ALKALINE PHOSPHATASE 108 U/L (45-117); ALT/SGPT 60 U/L (12-78); ANION GAP 8 MEQ/L (8-16); AST/SGOT 58 U/L (15-37); BILIRUBIN,TOTAL 1.5 MG/DL (0.2-1.0); BLOOD UREA NITROGEN 13 MG/DL (7-18); CALCIUM LEVEL 7.4 MG/DL (8.5-10.1); CARBON DIOXIDE LEVEL 22 MEQ/L (21-32); CHLORIDE LEVEL 115 MEQ/L (98-107); GLOMERULAR FILTRATION RATE > 60.0 (>56); GLUCOSE, FASTING 128 MG/DL (70-105); POTASSIUM SERUM 3.7 MEQ/L (3.5-5.1); SODIUM LEVEL 145 MEQ/L (136-145); TOTAL PROTEIN 5.5 GM/DL (6.4-8.2)
[2016-07-21 06:43] VITALS: BP 160/96
--- NOTE | 2016-07-21 07:50 | IPN ---
DATE: 07/21/2016 I was called to bedside to evaluate the patient who had had varying levels of orientation. notes. Last evening, he did have orientation only to self. I came to evaluate the patient later in the shift at which point he could tell me who he was, he could tell me that he was at [facility] in [place], he could tell me where he was from. He was unable to tell me the day, month or the year and he did not know who the President was. He had no complaints of pain, chest pain, shortness of breath, and was aware that he was having memory difficulties. At this point, will defer management to the daytime team when they arrive.
[2016-07-21] MEDS: NS 1,000 ML IV SCH (08:34)
[2016-07-21] MEDS: THIAMINE 100 MG TAB PO SCH (09:14)
[2016-07-21] MEDS: DOCUSATE SODIUM 100 MG CAP PO SCH ×2 (09:15→21:14)
[2016-07-21] MEDS: ATORVASTATIN 20 MG TAB PO SCH (09:15)
[2016-07-21] MEDS: ASPIRIN 325 MG TAB PO SCH (09:15)
--- NOTE | 2016-07-21 11:36 | IPNPDOC ---
Date Seen The patient was seen on 07/21/16. Progress Note Hospitalist Progress Note Subjective: Patient is awake, and denies any specific complaints. He states he overall feels pretty well. Objective: Physical Exam: Vitals: Vital Sign - Last 24 Hours 07/20/16 07/20/16 07/20/16 07/20/16 14:00 19:16 20:50 22:00 Temp 98.4 98.7 Pulse 108 108 Resp 18 18 B/P (MAP) 150/99 (116) 151/97 (115) Pulse Ox 93 94 O2 Delivery Nasal Cannula Nasal Cannula Nasal Cannula O2 Flow Rate 2.0 1.0 2.0 07/20/16 07/21/16 07/21/16 07/21/16 22:58 03:27 06:43 09:15 Temp 97.9 Pulse 84 Resp 18 B/P (MAP) 160/96 (117) Pulse Ox 94 O2 Delivery Nasal Cannula Nasal Cannula Room Air Nasal Cannula O2 Flow Rate 1.0 1.0 2.0 General: Awake, alert, no acute distress HEENT: Normocephalic, atraumatic, extraocular movements intact CV: Regular rate and rhythm Lungs: Very mild end expiratory wheeze, otherwise clear Abd: Soft, nontender, nondistended Extremities: No edema Neuro: Alert and oriented to name and place. He knows it is Friday, but is unsure of the year Psych: Normal Mood and affect Labs and Imaging: Laboratory Tests 07/21/16 05:42 Red Blood Count 2.99 L, Mean Corpuscular Volume 102.1 H, Mean Corpuscular Hemoglobin 32.8, Mean Corpuscular Hemoglobin Concent 32.2, Red Cell Distribution Width 14.7 H, Neutrophils (%) (Auto) 80.5 H, Lymphocytes (%) (Auto ) 6.2 L, Monocytes (%) (Auto) 5.2 H, Eosinophils (%) (Auto) 0.4, Basophils (%) ( Auto) 0.8, Neutrophils # (Auto) 7.7, Lymphocytes # (Auto) 0.6 L, Monocytes # ( Auto) 0.5, Eosinophils # (Auto) 0.0, Basophils # (Auto) 0.1, Calcium Level 7.4 L , Aspartate Amino Transf (AST/SGOT) 58 H, Alanine Aminotransferase (ALT/SGPT) 60 , Alkaline Phosphatase 108, Total Bilirubin 1.5 H, Total Protein 5.5 L, Albumin 1.8 L Assessment and Plan: 55-year-old male with hypertension, alcohol dependence, tobacco abuse, likely undiagnosed COPD, history of right-sided pulmonary nodules on imaging in 2010 who presented to the emergency department with increasing shortness of breath as well as a 30 pound weight loss over the last several months. According to his , he has not seen a physician in over 5 years and does not take any medications. He is admitted with acute respiratory failure secondary to community-acquired pneumonia. 1. Acute respiratory failure and strep pneumo bacteremia secondary to community- acquired pneumonia: This is overall improving. They recently attempted to change the patient to oral doxycycline, but he spiked a fever later that night. Repeat blood cultures drawn at that time are currently pending, and he has been restarted on IV Zosyn. Previous repeat blood cultures had showed complete clearing of the strep pneumoniae. He is now afebrile with a normal white count. 2. Metabolic encephalopathy and hyponatremia: This is much improved. The patient 's sodium has now corrected, and an MRI of the brain showed only subacute infarcts. 3. Acute kidney injury: Resolved. We'll stop IV fluids. 4. Alcohol dependence: The patient was very sedated on scheduled Serax. We will monitor him closely for withdrawal, and continue as needed Ativan. Continue daily thiamine. 5. Known pulmonary nodules: These were noted on his admission almost 6 years ago. At that time, there was concern for postobstructive pneumonia. According to the , this was never further investigated after discharge. When the patient is finally discharged, he will need close follow-up with pulmonology, with repeat imaging and possibly biopsies. It is significant to note, the patient has lost 30 pounds in the last several months, and this pneumonia has occurred on the same side as the pneumonia several years ago. 6. 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 Morejon of neurology. We will continue him on aspirin and statin. 7. Hypertension: The patient does not report any home medications. We'll continue to monitor closely, but this appears stable. 8. Likely undiagnosed but underlying COPD: Continue DuoNeb's. 9. Dilated cardiomyopathy: Echocardiogram shows EF of 35-40%, as well as diastolic dysfunction, mild pulmonary hypertension, and moderate to severe mitral regurg. I suspect this is secondary to his alcohol use. If his blood pressure is able to handle it, he would likely benefit from an TETE inhibitor and a beta dash. We will monitor his BP to see if this can be added. DVT prophylaxis: SCDs Dispo: The patient continues to work with PT and OT, although he has not done particularly well at this point, he may require subacute rehabilitation. Additionally, we are awaiting repeat blood cultures. VS, I&O, [facility]I&O Vital Signs Date Time Temp Pulse Resp B/P (MAP) Pulse Ox O2 Delivery O2 Flow Rate FiO2 07/21/16 09:15 Nasal Cannula 2.0 07/21/16 06:43 97.9 84 18 160/96 (117) 94 I&O- Last 24 Hours up to 6 AM 07/21/16 06:00 Intake Total 2490 ml Output Total 150 ml Balance 2340 ml Laboratory Data 24H LABS Laboratory Tests 2 07/21/16 00:50: Bedside Glucose (Misc Panel) 163H 07/21/16 05:42: White Blood Count 9.6, Red Blood Count 2.99L, Hemoglobin 9.8L, Hematocrit 30.6L , Mean Corpuscular Volume 102.1H, Mean Corpuscular Hemoglobin 32.8, Mean Corpuscular Hemoglobin Concent 32.2, Red Cell Distribution Width 14.7H, Platelet Count 108L, Neutrophils (%) (Auto) 80.5H, Lymphocytes (%) (Auto) 6.2L, Monocytes (%) (Auto) 5.2H, Eosinophils (%) (Auto) 0.4, Basophils (%) (Auto) 0.8 , Neutrophils # (Auto) 7.7, Lymphocytes # (Auto) 0.6L, Monocytes # (Auto) 0.5, Eosinophils # (Auto) 0.0, Basophils # (Auto) 0.1, Large Unclassified Cells % 6.8H, Large Unclassified Cells # 0.7H, Anion Gap 8, Glomerular Filtration Rate > 60.0, Blood Urea Nitrogen 13, Creatinine 0.70, Sodium Level 145, Potassium Level 3.7, Chloride Level 115H, Carbon Dioxide Level 22, Calcium Level 7.4L, Aspartate Amino Transf (AST/SGOT) 58H, Alanine Aminotransferase (ALT/SGPT) 60, Alkaline Phosphatase 108, Total Bilirubin 1.5H, Total Protein 5.5L, Albumin 1.8L , Magnesium Level 2.0, Albumin/Globulin Ratio 0.49L CBC/BMP Laboratory Tests 07/21/16 05:42 Red Blood Count 2.99 L, Mean Corpuscular Volume 102.1 H, Mean Corpuscular Hemoglobin 32.8, Mean Corpuscular Hemoglobin Concent 32.2, Red Cell Distribution Width 14.7 H, Neutrophils (%) (Auto) 80.5 H, Lymphocytes (%) (Auto ) 6.2 L, Monocytes (%) (Auto) 5.2 H, Eosinophils (%) (Auto) 0.4, Basophils (%) ( Auto) 0.8, Neutrophils # (Auto) 7.7, Lymphocytes # (Auto) 0.6 L, Monocytes # ( Auto) 0.5, Eosinophils # (Auto) 0.0, Basophils # (Auto) 0.1, Calcium Level 7.4 L , Aspartate Amino Transf (AST/SGOT) 58 H, Alanine Aminotransferase (ALT/SGPT) 60 , Alkaline Phosphatase 108, Total Bilirubin 1.5 H, Total Protein 5.5 L, Albumin 1.8 L Microbiology Microbiology 07/20/16 Blood Culture, Received Pending 07/20/16 Blood Culture - Preliminary, Resulted No growth after 24 hours . All specim... 07/15/16 Blood Culture - Final, Complete NO GROWTH AFTER 5 DAYS 07/15/16 Blood Culture - Final, Complete NO GROWTH AFTER 5 DAYS 07/14/16 Blood Culture - Final, Complete Streptococcus Pneumoniae 07/14/16 Blood Culture - Final, Complete Streptococcus Pneumoniae 07/15/16 Respiratory Virus Panel (PCR) (NISREEN) - Final, Complete 07/15/16 Urine Culture - Final, Complete FEI GANT Jul 21, 2016 11:36
[2016-07-21] MEDS ORDERED: MAGNESIUM CITRATE 300 ML BTL PO ONE (12:00)
[2016-07-21 14:00] VITALS: BP 135/89
[2016-07-21 22:00] VITALS: BP 134/81
[2016-07-22] MEDS: IPRATROPIUM 0.5MG/ALBUTEROL 2.5MG INH SOL UD 3ML (DUONEB)(J7620) NEB SCH ×6 (04:08→23:13)
[2016-07-22] MEDS: PIPERACILLIN/TAZOBACTAM SOD 3.375 GM in D5W MINI-BAG PLUS 50 ML IV SCH ×2 (04:13→11:12)
[2016-07-22 06:00] VITALS: BP 146/92
[2016-07-22 06:09] LABS: BASO % 0.7 % (0.0-1.0); EOS # 0.1 K/mm3 (0.0-0.50); LARGE UNSTAINED CELL # 0.4 K/mm3 (0.0-0.4); LARGE UNSTAINED CELL % 4.8 % (0.0-4.0); LYMPH % 8.1 % (24.0-44.0); MEAN CORPUSCULAR HEMOGLOBIN 31.7 pg (27.0-33.0); MEAN CORPUSCULAR HGB CONC 31.2 g/dl (32.0-36.5); MEAN CORPUSCULAR VOLUME 101.4 fl (80.0-96.0); MONO # 0.3 K/mm3 (0.0-0.8); MONO % 3.3 % (0.0-5.0); NEUTROPHILS # 6.4 K/mm3 (1.8-7.7); NEUTROPHILS % 82.1 % (36.0-66.0); PLATELET COUNT, AUTOMATED 124 k/mm3 (150-450); RED CELL DISTRIBUTION WIDTH 14.9 % (11.5-14.5); WHITE BLOOD COUNT 7.8 K/mm3 (4.0-10.0)
[2016-07-22 06:24] LABS: ANION GAP 6 MEQ/L (8-16); BLOOD UREA NITROGEN 12 MG/DL (7-18); CALCIUM LEVEL 7.8 MG/DL (8.5-10.1); CARBON DIOXIDE LEVEL 26 MEQ/L (21-32); CHLORIDE LEVEL 113 MEQ/L (98-107); CREATININE FOR GFR 0.69 MG/DL (0.70-1.30); GLOMERULAR FILTRATION RATE > 60.0 (>56); GLUCOSE, FASTING 98 MG/DL (70-105); MAGNESIUM LEVEL 2.3 MG/DL (1.8-2.4); POTASSIUM SERUM 3.8 MEQ/L (3.5-5.1); SODIUM LEVEL 145 MEQ/L (136-145)
[2016-07-22] MEDS: ASPIRIN 325 MG TAB PO SCH (09:20)
[2016-07-22] MEDS: ATORVASTATIN 20 MG TAB PO SCH (09:20)
[2016-07-22] MEDS: DOCUSATE SODIUM 100 MG CAP PO SCH ×2 (09:20→20:32)
[2016-07-22] MEDS: THIAMINE 100 MG TAB PO SCH (09:20)
--- NOTE | 2016-07-22 12:11 | IPNPDOC ---
Date Seen The patient was seen on 07/22/16. Progress Note Hospitalist Progress Note Subjective: Patient is awake, and denies any specific complaints. He tells me wants "real food" instead of the pureed diet he has been on. Objective: Physical Exam: Vitals: Vital Sign - Last 24 Hours 07/21/16 07/21/16 07/21/16 07/21/16 14:00 19:37 20:00 22:00 Temp 97.4 97.3 Pulse 91 95 Resp 20 18 B/P (MAP) 135/89 (104) 134/81 (98) Pulse Ox 93 92 O2 Delivery Nasal Cannula Nasal Cannula Nasal Cannula Nasal Cannula O2 Flow Rate 2.0 2.0 2.0 2.0 07/21/16 07/22/16 07/22/16 23:01 04:00 06:00 Temp 99.4 Pulse 96 Resp 18 B/P (MAP) 146/92 (110) Pulse Ox 90 O2 Delivery Nasal Cannula Nasal Cannula Nasal Cannula O2 Flow Rate 2.0 2.0 2.0 General: Awake, alert, no acute distress HEENT: Normocephalic, atraumatic, extraocular movements intact CV: Regular rate and rhythm Lungs: Very mild end expiratory wheeze, otherwise clear Abd: Soft, nontender, nondistended Extremities: No edema Neuro: Alert and oriented to name and place. Psych: Normal Mood and affect Labs and Imaging: Laboratory Tests 07/22/16 05:47 Red Blood Count 2.89 L, Mean Corpuscular Volume 101.4 H, Mean Corpuscular Hemoglobin 31.7, Mean Corpuscular Hemoglobin Concent 31.2 L, Red Cell Distribution Width 14.9 H, Neutrophils (%) (Auto) 82.1 H, Lymphocytes (%) (Auto ) 8.1 L, Monocytes (%) (Auto) 3.3, Eosinophils (%) (Auto) 1.0, Basophils (%) ( Auto) 0.7, Neutrophils # (Auto) 6.4, Lymphocytes # (Auto) 1.0 L, Monocytes # ( Auto) 0.3, Eosinophils # (Auto) 0.1, Basophils # (Auto) 0.0, Calcium Level 7.8 L Assessment and Plan: 55-year-old male with hypertension, alcohol dependence, tobacco abuse, likely undiagnosed COPD, history of right-sided pulmonary nodules on imaging in 2010 who presented to the emergency department with increasing shortness of breath as well as a 30 pound weight loss over the last several months. According to his , he has not seen a physician in over 5 years and does not take any medications. He is admitted with acute respiratory failure secondary to community-acquired pneumonia. 1. Acute respiratory failure and strep pneumo bacteremia secondary to community- acquired pneumonia: This is overall improving. Over the weekend, we attempted to change the patient to oral doxycycline, but he spiked a fever later that night so he was changed back to zosyn. Repeat blood cultures drawn at that time are negative. Will attempt to change to PO levaquin. Previous repeat blood cultures had showed complete clearing of the strep pneumoniae. He is now afebrile with a normal white count. There was some concern when he was sedated from the serax that he had aspirated; will ask NUTRITION SERVICES ASSISTANT to reevaluate his swallow today as he is now more alert and requesting a normal diet. 2. Metabolic encephalopathy and hyponatremia: This is much improved. The patient 's sodium has now corrected, and an MRI of the brain showed only subacute infarcts. 3. Acute kidney injury: Resolved. 4. Alcohol dependence: The patient was very sedated on scheduled Serax. We will monitor him closely for withdrawal, and continue as needed Ativan. Continue daily thiamine. 5. Known pulmonary nodules: These were noted on his admission almost 6 years ago. At that time, there was concern for postobstructive pneumonia. According to the , this was never further investigated after discharge. When the patient is finally discharged, he will need close follow-up with pulmonology, with repeat imaging and possibly biopsies. It is significant to note, the patient has lost 30 pounds in the last several months, and this pneumonia has occurred on the same side as the pneumonia several years ago. 6. 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 Morejon of neurology. We will continue him on aspirin and statin. 7. Hypertension: The patient does not report any home medications. We'll continue to monitor closely, but this appears stable. Will start a low dose beta dash given his cardiomyopathy. If BP can handle it, would benefit from adding an ACEI later. 8. Likely undiagnosed but underlying COPD: Continue DuoNeb's. 9. Dilated cardiomyopathy: Echocardiogram shows EF of 35-40%, as well as diastolic dysfunction, mild pulmonary hypertension, and moderate to severe mitral regurg. I suspect this is secondary to his alcohol use. If his blood pressure is able to handle it, he would likely benefit from an TETE inhibitor and a beta dash. We will add a low dose beta dash and continue to monitor his BP. DVT prophylaxis: SCDs Dispo: The patient continues to work with PT and OT, although he has not done particularly well at this point, he may require subacute rehabilitation. VS, I&O, 24H, Fishbone Vital Signs/I&O Vital Signs Date Time Temp Pulse Resp B/P (MAP) Pulse Ox O2 Delivery O2 Flow Rate FiO2 07/22/16 06:00 99.4 96 18 146/92 (110) 90 Nasal Cannula 2.0 I&O- Last 24 Hours up to 6 AM 07/22/16 05:59 Intake Total 1870 ml Output Total 450 ml Balance 1420 ml Laboratory Data 24H LABS Laboratory Tests 2 07/22/16 05:47: White Blood Count 7.8, Red Blood Count 2.89L, Hemoglobin 9.2L, Hematocrit 29.3L , Mean Corpuscular Volume 101.4H, Mean Corpuscular Hemoglobin 31.7, Mean Corpuscular Hemoglobin Concent 31.2L, Red Cell Distribution Width 14.9H, Platelet Count 124L, Neutrophils (%) (Auto) 82.1H, Lymphocytes (%) (Auto) 8.1L, Monocytes (%) (Auto) 3.3, Eosinophils (%) (Auto) 1.0, Basophils (%) (Auto) 0.7, Neutrophils # (Auto) 6.4, Lymphocytes # (Auto) 1.0L, Monocytes # (Auto) 0.3, Eosinophils # (Auto) 0.1, Basophils # (Auto) 0.0, Large Unclassified Cells % 4.8H, Large Unclassified Cells # 0.4, Anion Gap 6L, Glomerular Filtration Rate > 60.0, Blood Urea Nitrogen 12, Creatinine 0.69L, Sodium Level 145, Potassium Level 3.8, Chloride Level 113H, Carbon Dioxide Level 26, Calcium Level 7.8L, Magnesium Level 2.3 CBC/BMP Laboratory Tests 07/22/16 05:47 Red Blood Count 2.89 L, Mean Corpuscular Volume 101.4 H, Mean Corpuscular Hemoglobin 31.7, Mean Corpuscular Hemoglobin Concent 31.2 L, Red Cell Distribution Width 14.9 H, Neutrophils (%) (Auto) 82.1 H, Lymphocytes (%) (Auto ) 8.1 L, Monocytes (%) (Auto) 3.3, Eosinophils (%) (Auto) 1.0, Basophils (%) ( Auto) 0.7, Neutrophils # (Auto) 6.4, Lymphocytes # (Auto) 1.0 L, Monocytes # ( Auto) 0.3, Eosinophils # (Auto) 0.1, Basophils # (Auto) 0.0, Calcium Level 7.8 L Microbiology Microbiology 07/20/16 Blood Culture - Preliminary, Resulted No Growth after 48 hours. All Specime... 07/20/16 Blood Culture - Preliminary, Resulted No Growth after 48 hours. All Specime... 07/15/16 Blood Culture - Final, Complete NO GROWTH AFTER 5 DAYS 07/15/16 Blood Culture - Final, Complete NO GROWTH AFTER 5 DAYS 07/14/16 Blood Culture - Final, Complete Streptococcus Pneumoniae 07/14/16 Blood Culture - Final, Complete Streptococcus Pneumoniae 07/15/16 Respiratory Virus Panel (PCR) (NISREEN) - Final, Complete 07/15/16 Urine Culture - Final, Complete FEI GANT July 22, 2016 12:11
[2016-07-22] MEDS: LevoFLOXacin 750 MG TABLET PO SCH (13:52)
[2016-07-22] MEDS: METOPROLOL TART 12.5 MG PER 1/2 TAB PO SCH ×2 (13:53→20:32)
[2016-07-22 14:00] VITALS: BP 104/71
[2016-07-22 22:00] VITALS: BP 128/85
[2016-07-23] MEDS: IPRATROPIUM 0.5MG/ALBUTEROL 2.5MG INH SOL UD 3ML (DUONEB)(J7620) NEB SCH ×6 (03:16→23:49)
[2016-07-23] MEDS: LevoFLOXacin 750 MG TABLET PO SCH (05:56)
[2016-07-23 06:00] VITALS: BP 150/81
[2016-07-23] MEDS: MOM 30ML SUSPENSION UDC PO PRN (06:14)
[2016-07-23 06:53] LABS: BASO % 0.4 % (0.0-1.0); EOS # 0.1 K/mm3 (0.0-0.50); LARGE UNSTAINED CELL # 0.4 K/mm3 (0.0-0.4); LARGE UNSTAINED CELL % 4.3 % (0.0-4.0); LYMPH # 1.1 K/mm3 (1.5-4.5); LYMPH % 8.8 % (24.0-44.0); MEAN CORPUSCULAR HEMOGLOBIN 32.5 pg (27.0-33.0); MEAN CORPUSCULAR HGB CONC 31.9 g/dl (32.0-36.5); MONO # 0.3 K/mm3 (0.0-0.8); MONO % 3.4 % (0.0-5.0); NEUTROPHILS # 6.7 K/mm3 (1.8-7.7); NEUTROPHILS % 82.1 % (36.0-66.0); PLATELET COUNT, AUTOMATED 135 k/mm3 (150-450); RED CELL DISTRIBUTION WIDTH 14.7 % (11.5-14.5); WHITE BLOOD COUNT 8.1 K/mm3 (4.0-10.0)
[2016-07-23 07:06] LABS: ANION GAP 7 MEQ/L (8-16); BLOOD UREA NITROGEN 11 MG/DL (7-18); CALCIUM LEVEL 7.9 MG/DL (8.5-10.1); CARBON DIOXIDE LEVEL 24 MEQ/L (21-32); CHLORIDE LEVEL 112 MEQ/L (98-107); CREATININE FOR GFR 0.65 MG/DL (0.70-1.30); GLOMERULAR FILTRATION RATE > 60.0 (>56); GLUCOSE, FASTING 97 MG/DL (70-105); MAGNESIUM LEVEL 2.1 MG/DL (1.8-2.4); POTASSIUM SERUM 3.7 MEQ/L (3.5-5.1); SODIUM LEVEL 143 MEQ/L (136-145)
[2016-07-23] MEDS: DOCUSATE SODIUM 100 MG CAP PO SCH ×2 (08:57→21:25)
[2016-07-23] MEDS: THIAMINE 100 MG TAB PO SCH (08:57)
[2016-07-23] MEDS: ASPIRIN 325 MG TAB PO SCH (08:57)
[2016-07-23] MEDS: METOPROLOL TART 12.5 MG PER 1/2 TAB PO SCH ×2 (08:57→21:26)
[2016-07-23] MEDS: ATORVASTATIN 20 MG TAB PO SCH (08:57)
[2016-07-23 11:18] VITALS: BP_SYST 78; BP_SYST 90; BP_DIAS 40; BP_DIAS 62
[2016-07-23 11:44] VITALS: BP 110/70
--- NOTE | 2016-07-23 12:33 | IPNPDOC ---
Subjective Date Seen The patient was seen on 07/23/16. Subjective Chief Complaint/HPI The patient is a 55-year-old male admitted with a reason for visit of Pneumonia. General: Denies: ROS Unobtainable, Chills, Night Sweats, Fatigue, Malaise, Normal Appetite, Other Symptoms Constitutional: Denies: Chills, Fever, Malaise, Night Sweats, Weakness, Fatigue , Weight Loss, Lethargy, Other Eyes: Denies: Pain, Vision change, Conjunctivae inflammation, Eyelid inflammation, Redness, Other ENT: Denies: Head Aches, Ear Pain, Dysphagia, Sinus Congestion, Post Nasal Drip , Sore Throat, Epistaxis, Other Symptoms Skin: Denies: Rash, Lesions, Jaundice, Bruising, Itching, Dry, Breakdown, Nail Changes, Other Pulmonary: Reports: Dyspnea, Cough, Denies: Pleuritic Chest Pain, Other Symptoms Cardiovascular: Denies: Chest Pain, Palpitations, Orthopnea, Paroxysmal Noc. Dyspnea, Edema, Lt Headedness, Other Symptoms Gastrointestinal: Denies: Nausea, Vomiting, Abdominal Pain, Diarrhea, Constipation, Melena, Hematochezia, Other Symptoms Genitourinary: Denies: Dysuria, Frequency, Incontinence, Hematuria, Retention, Other Symptoms Objective Physical Examination General Exam: Positive: Alert, Cooperative, No Acute Distress, Other ( dissheveled) Eye Exam: Positive: PERRLA, Conjunctiva & lids normal, EOMI ENT Exam: Positive: Atraumatic, Other ENT (dry mucous membranes) Neck Exam: Negative: JVD Chest Exam: Positive: Clear to auscultation, Diminished, Other (Decreased breath sounds auscultated right vs left) Heart Exam: Positive: Rate Normal, Regular Rhythm, Normal S1, Normal S2 Abdomen Exam: Positive: Soft, Negative: Tenderness Extremity Exam: Positive: Other (Chronic Venous Stasis changes, dry skin noted in the lower extremities bilaterally), Negative: Tenderness, Swelling Neuro Exam: Positive: Strength at 5/5 X4 ext, Sensation Intact Assessment /Plan Problems (1) Pneumonia Status: Acute Response to Treatment: Improving Discussed With: Patient Problem Specific Plan: Monitor Clinically Problem Text: Strep pneumo bacteremia secondary to CAP PO levaquin, failed doxycycline with fever abnormal CT chest noted - recommendations for CT chest with contrast Known pulmonary nodules - repeated pneumonia - concern for mass/obstruction (2) TANESHA (acute kidney injury) Status: Resolved Discussed With: Patient Problem Specific Plan: Repeat Labs (3) Weight loss Status: Acute Discussed With: Patient Problem Specific Plan: Monitor Clinically Problem Text: No clear etiology, possibly unintentional from poor PO intake. Considering CT abd/pelvis, colonoscopy as outpatient. Will obtain FOBT. (4) Weakness Status: Acute Discussed With: Patient Problem Specific Plan: Consult Specialist, Monitor Clinically Problem Text: PT/OT eval/treat (5) Hyponatremia Status: Resolved (6) Alcohol abuse Status: Chronic Discussed With: Patient Problem Specific Plan: Monitor Clinically Problem Text: No s/s of withdrawal folic acid, thiamine, MVI (7) Altered mental state Status: Acute Discussed With: Patient Problem Specific Plan: Monitor Clinically Problem Text: likely metabolic encephalopathy. MRI brain appreciated. Subacute vermian infarct with lacunar infarct, small vessel ischemic disease. Neurology consultation appreciated. Aspirin and statin therapy. (8) HTN (hypertension) Status: Chronic Discussed With: Patient Problem Specific Plan: Monitor Clinically Problem Text: Receiving beta dash. (9) Dilated cardiomyopathy Status: Chronic Discussed With: Patient Problem Specific Plan: Monitor Clinically Problem Text: Likely secondary to alcohol abuse. Echo = systolic and diastolic dysfunction receiving BB, will consider ACEI if BP can tolerate. Plan/VTE VTE Prophylaxis Ordered?: Yes (TEDs) Plan Diet: Make NPO (pending swallow evaluation) Activity: Continue Current Therapy: PT, OT Respiratory: Wean Oxygen Diagnostics: Repeat Labs in AM, CT Disposition Plan for CT chest with contrast, consider abdomen pelvis also. VS, I&O, 24H, Fishbone Vital Signs/I&O Vital Signs Date Time Temp Pulse Resp B/P (MAP) Pulse Ox O2 Delivery O2 Flow Rate FiO2 07/23/16 11:44 110/70 (83) 07/23/16 08:57 92 07/23/16 08:55 Nasal Cannula 2.0 07/23/16 06:00 98.1 20 90 I&O- Last 24 Hours up to 6 AM 07/23/16 06:00 Intake Total 290 ml Output Total 500 ml Balance -210 ml Laboratory Data 24H LABS Laboratory Tests 2 07/23/16 06:29: White Blood Count 8.1, Red Blood Count 2.90L, Hemoglobin 9.4L, Hematocrit 29.5L , Mean Corpuscular Volume 102.0H, Mean Corpuscular Hemoglobin 32.5, Mean Corpuscular Hemoglobin Concent 31.9L, Red Cell Distribution Width 14.7H, Platelet Count 135L, Neutrophils (%) (Auto) 82.1H, Lymphocytes (%) (Auto) 8.8L, Monocytes (%) (Auto) 3.4, Eosinophils (%) (Auto) 1.0, Basophils (%) (Auto) 0.4, Neutrophils # (Auto) 6.7, Lymphocytes # (Auto) 1.1L, Monocytes # (Auto) 0.3, Eosinophils # (Auto) 0.1, Basophils # (Auto) 0.0, Large Unclassified Cells % 4.3H, Large Unclassified Cells # 0.4, Anion Gap 7L, Glomerular Filtration Rate > 60.0, Blood Urea Nitrogen 11, Creatinine 0.65L, Sodium Level 143, Potassium Level 3.7, Chloride Level 112H, Carbon Dioxide Level 24, Calcium Level 7.9L, Magnesium Level 2.1 CBC/BMP Laboratory Tests 07/23/16 06:29 Red Blood Count 2.90 L, Mean Corpuscular Volume 102.0 H, Mean Corpuscular Hemoglobin 32.5, Mean Corpuscular Hemoglobin Concent 31.9 L, Red Cell Distribution Width 14.7 H, Neutrophils (%) (Auto) 82.1 H, Lymphocytes (%) (Auto ) 8.8 L, Monocytes (%) (Auto) 3.4, Eosinophils (%) (Auto) 1.0, Basophils (%) ( Auto) 0.4, Neutrophils # (Auto) 6.7, Lymphocytes # (Auto) 1.1 L, Monocytes # ( Auto) 0.3, Eosinophils # (Auto) 0.1, Basophils # (Auto) 0.0, Calcium Level 7.9 L Microbiology Microbiology 07/20/16 Blood Culture - Preliminary, Resulted No Growth after 72 hours. All specime... 07/20/16 Blood Culture - Preliminary, Resulted No Growth after 72 hours. All specime... 07/15/16 Blood Culture - Final, Complete NO GROWTH AFTER 5 DAYS 07/15/16 Blood Culture - Final, Complete NO GROWTH AFTER 5 DAYS 07/14/16 Blood Culture - Final, Complete Streptococcus Pneumoniae 07/14/16 Blood Culture - Final, Complete Streptococcus Pneumoniae 07/15/16 Respiratory Virus Panel (PCR) (NISREEN) - Final, Complete 07/15/16 Urine Culture - Final, Complete CINTHIA GARCIA MD July 23, 2016 12:32
[2016-07-23] MEDS ORDERED: ISOVUE-370 76% 100ML VIAL (Q9967) As Ordered ONE (13:07)
[2016-07-23 14:00] VITALS: BP 139/80
[2016-07-23] MEDS: FOLIC ACID 1 MG TAB PO SCH (14:31)
[2016-07-23] MEDS: MULTIVITAMINS/MINERALS THERAP 1 TAB PO SCH (14:31)
[2016-07-23 22:00] VITALS: BP 128/72
[2016-07-24] MEDS: IPRATROPIUM 0.5MG/ALBUTEROL 2.5MG INH SOL UD 3ML (DUONEB)(J7620) NEB SCH ×6 (04:00→23:23)
[2016-07-24 06:00] VITALS: BP 150/74
[2016-07-24] MEDS: LevoFLOXacin 750 MG TABLET PO SCH (06:05)
--- NOTE | 2016-07-24 06:07 | REP ---
Clinical: Follow up pneumonia. Shortness of breath. Technique: Axial contrast enhanced images from the thoracic inlet to the upper abdomen using 100 ml Isovue 370 intravenous contrast material with coronal and sagittal re-formations. Comparison: 07/14/2016. Findings: [id number] multifocal consolidations with air bronchograms are increased from prior examination predominately involving the right upper lobe as bilateral lower lobes as well as scattered smaller ill-defined areas of consolidation and opacity throughout the remainder of the lung jones. Large bilateral pleural effusions (right greater than left) are considerably increased when compared to prior examination underlying mediastinal adenopathy measuring up to 12 mm likely reactive. Cardiomegaly noted and associated pulmonary vascular congestion cannot be excluded. No pneumothorax. No pericardial effusion. Thoracic aorta is normal. Upper abdomen is grossly unremarkable. Musculoskeletal structures are intact. Impression: Increasing bilateral lower lobe and right upper lobe consolidations as well as scattered bilateral infiltrates. Large bilateral pleural effusions (right greater than left) increased from prior examination. Cardiomegaly and pulmonary vascular congestion. Signed by Jason Cisneros MD 07/24/2016 05:58 A
[2016-07-24 06:16] LABS: BASO % 0.8 % (0.0-1.0); EOS # 0.1 K/mm3 (0.0-0.50); EOS % 1.3 % (0.0-3.0); LARGE UNSTAINED CELL # 0.3 K/mm3 (0.0-0.4); LYMPH # 1.1 K/mm3 (1.5-4.5); LYMPH % 12.4 % (24.0-44.0); MEAN CORPUSCULAR HEMOGLOBIN 32.6 pg (27.0-33.0); MEAN CORPUSCULAR HGB CONC 31.9 g/dl (32.0-36.5); MEAN CORPUSCULAR VOLUME 102.2 fl (80.0-96.0); MONO # 0.3 K/mm3 (0.0-0.8); MONO % 4.4 % (0.0-5.0); NEUTROPHILS # 5.3 K/mm3 (1.8-7.7); NEUTROPHILS % 77.1 % (36.0-66.0); PLATELET COUNT, AUTOMATED 144 k/mm3 (150-450); RED CELL DISTRIBUTION WIDTH 14.9 % (11.5-14.5); WHITE BLOOD COUNT 6.8 K/mm3 (4.0-10.0)
[2016-07-24 06:32] LABS: ANION GAP 6 MEQ/L (8-16); BLOOD UREA NITROGEN 10 MG/DL (7-18); CALCIUM LEVEL 7.8 MG/DL (8.5-10.1); CARBON DIOXIDE LEVEL 27 MEQ/L (21-32); CHLORIDE LEVEL 110 MEQ/L (98-107); CREATININE FOR GFR 0.61 MG/DL (0.70-1.30); GLOMERULAR FILTRATION RATE > 60.0 (>56); GLUCOSE, FASTING 93 MG/DL (70-105); MAGNESIUM LEVEL 2.1 MG/DL (1.8-2.4); POTASSIUM SERUM 3.5 MEQ/L (3.5-5.1); SODIUM LEVEL 143 MEQ/L (136-145)
[2016-07-24] MEDS: METOPROLOL TART 12.5 MG PER 1/2 TAB PO SCH ×2 (08:48→20:55)
[2016-07-24] MEDS: FOLIC ACID 1 MG TAB PO SCH (08:49)
[2016-07-24] MEDS: MULTIVITAMINS/MINERALS THERAP 1 TAB PO SCH (08:49)
[2016-07-24] MEDS: ATORVASTATIN 20 MG TAB PO SCH (08:49)
[2016-07-24] MEDS: ASPIRIN 325 MG TAB PO SCH (08:49)
[2016-07-24] MEDS: DOCUSATE SODIUM 100 MG CAP PO SCH ×2 (08:49→20:58)
[2016-07-24] MEDS: THIAMINE 100 MG TAB PO SCH (08:49)
[2016-07-24] MEDS ORDERED: FUROSEMIDE 40 MG/4 ML VIAL (J1940) IV SCH (09:00)
--- NOTE | 2016-07-24 09:45 | IPNPDOC ---
Subjective Date Seen The patient was seen on 07/24/16. Subjective Chief Complaint/HPI The patient is a 55-year-old male admitted with a reason for visit of Pneumonia. General: Denies: ROS Unobtainable, Chills, Night Sweats, Fatigue, Malaise, Normal Appetite, Other Symptoms Constitutional: Denies: Chills, Fever, Malaise, Night Sweats, Weakness, Fatigue , Weight Loss, Lethargy, Other Eyes: Denies: Pain, Vision change, Conjunctivae inflammation, Eyelid inflammation, Redness, Other ENT: Denies: Head Aches, Ear Pain, Dysphagia, Sinus Congestion, Post Nasal Drip , Sore Throat, Epistaxis, Other Symptoms Skin: Denies: Rash, Lesions, Jaundice, Bruising, Itching, Dry, Breakdown, Nail Changes, Other Pulmonary: Denies: Dyspnea, Cough, Pleuritic Chest Pain, Other Symptoms Cardiovascular: Denies: Chest Pain, Palpitations, Orthopnea, Paroxysmal Noc. Dyspnea, Edema, Lt Headedness, Other Symptoms Gastrointestinal: Denies: Nausea, Vomiting, Abdominal Pain, Diarrhea, Constipation, Melena, Hematochezia, Other Symptoms Genitourinary: Denies: Dysuria, Frequency, Incontinence, Hematuria, Retention, Other Symptoms Objective Physical Examination General Exam: Positive: Alert, Cooperative, No Acute Distress, Other ( dissheveled) Eye Exam: Positive: PERRLA, Conjunctiva & lids normal, EOMI ENT Exam: Positive: Atraumatic, Other ENT (dry mucous membranes) Neck Exam: Negative: JVD Chest Exam: Positive: Clear to auscultation, Diminished, Other (Decreased breath sounds auscultated right > left) Heart Exam: Positive: Rate Normal, Regular Rhythm, Normal S1, Normal S2 Abdomen Exam: Positive: Normal bowel sounds, Soft, Negative: Tenderness Extremity Exam: Positive: Other (Chronic Venous Stasis changes, dry skin noted in the lower extremities bilaterally), Negative: Tenderness, Swelling Neuro Exam: Positive: Strength at 5/5 X4 ext, Sensation Intact Psych Exam: Positive: Oriented x 3 Assessment /Plan Problems (1) Pneumonia Status: Acute Response to Treatment: Improving Discussed With: Patient Problem Specific Plan: Monitor Clinically Problem Text: Strep pneumo bacteremia secondary to CAP PO levaquin, failed doxycycline with fever Known pulmonary nodules - repeated pneumonia - concern for mass/obstruction ct chest noted - b/l effusions/consolidations will attempt medical management - added lasix with hold parameters d/w CTS (2) TANESHA (acute kidney injury) Status: Resolved Discussed With: Patient Problem Specific Plan: Repeat Labs (3) Weight loss Status: Acute Discussed With: Patient Problem Specific Plan: Monitor Clinically Problem Text: No clear etiology, possibly unintentional from poor PO intake. Considering CT abd/pelvis, colonoscopy as outpatient. Will obtain FOBT. (4) Weakness Status: Acute Discussed With: Patient Problem Specific Plan: Consult Specialist, Monitor Clinically Problem Text: PT/OT eval/treat (5) Hyponatremia Status: Resolved (6) Alcohol abuse Status: Chronic Discussed With: Patient Problem Specific Plan: Monitor Clinically Problem Text: No s/s of withdrawal folic acid, thiamine, MVI (7) Altered mental state Status: Acute Response to Treatment: Improving Discussed With: Patient Problem Specific Plan: Monitor Clinically Problem Text: likely metabolic encephalopathy. MRI brain appreciated. Subacute vermian infarct with lacunar infarct, small vessel ischemic disease. Neurology consultation appreciated. Aspirin and statin therapy. (8) HTN (hypertension) Status: Chronic Discussed With: Patient Problem Specific Plan: Monitor Clinically Problem Text: Receiving beta dash. (9) Dilated cardiomyopathy Status: Chronic Discussed With: Patient Problem Specific Plan: Monitor Clinically Problem Text: Likely secondary to alcohol abuse. Echo = systolic and diastolic dysfunction receiving BB, will consider ACEI if BP can tolerate. Plan/VTE VTE Prophylaxis Ordered?: Yes (TEDs) Plan Diet: Make NPO (pending swallow evaluation) Activity: Continue Current Therapy: PT, OT Respiratory: Wean Oxygen Diagnostics: Repeat Labs in AM, CT VS, I&O, [facility]H, [facility] Vital Signs/I&O Vital Signs Date Time Temp Pulse Resp B/P (MAP) Pulse Ox O2 Delivery O2 Flow Rate FiO2 07/24/16 08:48 80 143/69 07/24/16 06:00 97.8 19 93 Nasal Cannula 07/23/16 21:30 2.0 I&O- Last 24 Hours up to 6 AM 07/24/16 06:00 Intake Total 1600 ml Output Total 300 ml Balance 1300 ml Laboratory Data 24H LABS Laboratory Tests 2 07/24/16 06:00: White Blood Count 6.8, Red Blood Count 2.76L, Hemoglobin 9.0L, Hematocrit 28.2L , Mean Corpuscular Volume 102.2H, Mean Corpuscular Hemoglobin 32.6, Mean Corpuscular Hemoglobin Concent 31.9L, Red Cell Distribution Width 14.9H, Platelet Count 144L, Neutrophils (%) (Auto) 77.1H, Lymphocytes (%) (Auto) 12.4L , Monocytes (%) (Auto) 4.4, Eosinophils (%) (Auto) 1.3, Basophils (%) (Auto) 0.8 , Neutrophils # (Auto) 5.3, Lymphocytes # (Auto) 1.1L, Monocytes # (Auto) 0.3, Eosinophils # (Auto) 0.1, Basophils # (Auto) 0.0, Large Unclassified Cells % 4.0 , Large Unclassified Cells # 0.3, Anion Gap 6L, Glomerular Filtration Rate > 60.0, Blood Urea Nitrogen 10, Creatinine 0.61L, Sodium Level 143, Potassium Level 3.5, Chloride Level 110H, Carbon Dioxide Level 27, Calcium Level 7.8L, Magnesium Level 2.1 CBC/BMP Laboratory Tests 07/24/16 06:00 Red Blood Count 2.76 L, Mean Corpuscular Volume 102.2 H, Mean Corpuscular Hemoglobin 32.6, Mean Corpuscular Hemoglobin Concent 31.9 L, Red Cell Distribution Width 14.9 H, Neutrophils (%) (Auto) 77.1 H, Lymphocytes (%) (Auto ) 12.4 L, Monocytes (%) (Auto) 4.4, Eosinophils (%) (Auto) 1.3, Basophils (%) ( Auto) 0.8, Neutrophils # (Auto) 5.3, Lymphocytes # (Auto) 1.1 L, Monocytes # ( Auto) 0.3, Eosinophils # (Auto) 0.1, Basophils # (Auto) 0.0, Calcium Level 7.8 L Microbiology Microbiology 07/20/16 Blood Culture - Preliminary, Resulted No Growth after 72 hours. All specime... 07/20/16 Blood Culture - Preliminary, Resulted No Growth after 72 hours. All specime... 07/15/16 Blood Culture - Final, Complete NO GROWTH AFTER 5 DAYS 07/15/16 Blood Culture - Final, Complete NO GROWTH AFTER 5 DAYS 07/14/16 Blood Culture - Final, Complete Streptococcus Pneumoniae 07/14/16 Blood Culture - Final, Complete Streptococcus Pneumoniae 07/15/16 Respiratory Virus Panel (PCR) (NISREEN) - Final, Complete 07/15/16 Urine Culture - Final, Complete CINTHIA GARCIA MD July 24, 2016 09:45
[2016-07-24 14:00] VITALS: BP 142/76
--- NOTE | 2016-07-24 15:23 | REP ---
CHEST, TWO VIEWS: HISTORY: Effusions. COMPARISON: 07/18/2016 Bilateral lower lobe and right upper lobe infiltrates are present that are increased compared to the previous study. Bilateral pleural effusions are present, larger on the right than on the left, increased compared to the previous study. The cardiac silhouette is enlarged. The pulmonary vasculature is normal in appearance. IMPRESSION: 1. Bilateral lower lobe and right upper lobe infiltrates, increased compared to the previous study. 2. Bilateral pleural effusions, increased compared to the previous study. Signed by Maury Fuentes MD 07/24/2016 03:23 P
[2016-07-24] MEDS: FUROSEMIDE 40 MG/4 ML VIAL (J1940) IV SCH (17:34)
[2016-07-24 22:00] VITALS: BP 101/61
[2016-07-25] MEDS: IPRATROPIUM 0.5MG/ALBUTEROL 2.5MG INH SOL UD 3ML (DUONEB)(J7620) NEB SCH ×6 (04:00→23:18)
[2016-07-25] MEDS: LevoFLOXacin 750 MG TABLET PO SCH (05:30)
[2016-07-25 06:00] VITALS: BP 121/68
[2016-07-25 06:46] LABS: ANION GAP 8 MEQ/L (8-16); BLOOD UREA NITROGEN 8 MG/DL (7-18); CALCIUM LEVEL 7.6 MG/DL (8.5-10.1); CARBON DIOXIDE LEVEL 31 MEQ/L (21-32); CHLORIDE LEVEL 105 MEQ/L (98-107); CREATININE FOR GFR 0.82 MG/DL (0.70-1.30); GLOMERULAR FILTRATION RATE > 60.0 (>56); GLUCOSE, FASTING 86 MG/DL (70-105); MAGNESIUM LEVEL 1.7 MG/DL (1.8-2.4); POTASSIUM SERUM 2.9 MEQ/L (3.5-5.1); SODIUM LEVEL 144 MEQ/L (136-145)
[2016-07-25 06:51] LABS: BASO # 0.1 K/mm3 (0.0-0.2); BASO % 1.2 % (0.0-1.0); EOS # 0.1 K/mm3 (0.0-0.50); LARGE UNSTAINED CELL # 0.3 K/mm3 (0.0-0.4); LARGE UNSTAINED CELL % 4.5 % (0.0-4.0); LYMPH # 1.3 K/mm3 (1.5-4.5); LYMPH % 14.6 % (24.0-44.0); MEAN CORPUSCULAR HGB CONC 32.2 g/dl (32.0-36.5); MEAN CORPUSCULAR VOLUME 99.3 fl (80.0-96.0); MONO # 0.3 K/mm3 (0.0-0.8); MONO % 4.8 % (0.0-5.0); NEUTROPHILS # 5.2 K/mm3 (1.8-7.7); NEUTROPHILS % 73.9 % (36.0-66.0); PLATELET COUNT, AUTOMATED 169 k/mm3 (150-450)
--- NOTE | 2016-07-25 08:42 | IPNPDOC ---
Subjective Date Seen The patient was seen on 07/25/16. Subjective Chief Complaint/HPI The patient is a 55-year-old male admitted with a reason for visit of Pneumonia. Events since last encounter States he is feeling much better today. Concerned regarding his incontinence, as thought he 'was going crazy'. Stated he would prefer connell catheter to incontinence if given the option. No new medical complaints today. General: Denies: ROS Unobtainable, Chills, Night Sweats, Fatigue, Malaise, Normal Appetite, Other Symptoms Constitutional: Denies: Chills, Fever, Malaise, Night Sweats, Weakness, Fatigue , Weight Loss, Lethargy, Other Eyes: Denies: Pain, Vision change, Conjunctivae inflammation, Eyelid inflammation, Redness, Other ENT: Denies: Head Aches, Ear Pain, Dysphagia, Sinus Congestion, Post Nasal Drip , Sore Throat, Epistaxis, Other Symptoms Skin: Denies: Rash, Lesions, Jaundice, Bruising, Itching, Dry, Breakdown, Nail Changes, Other Pulmonary: Denies: Dyspnea, Cough, Pleuritic Chest Pain, Other Symptoms Cardiovascular: Denies: Chest Pain, Palpitations, Orthopnea, Paroxysmal Noc. Dyspnea, Edema, Lt Headedness, Other Symptoms Gastrointestinal: Denies: Nausea, Vomiting, Abdominal Pain, Diarrhea, Constipation, Melena, Hematochezia, Other Symptoms Genitourinary: Reports: Frequency, Incontinence Hematologic: Denies: Bruising, Bleeding Excessively, Petecchia, Purpura, Enlarged Lymph Nodes, Other Hematologic Objective Physical Examination General Exam: Positive: Alert, Cooperative, No Acute Distress, Other ( dissheveled) Eye Exam: Positive: PERRLA, Conjunctiva & lids normal, EOMI ENT Exam: Positive: Atraumatic, Other ENT (dry mucous membranes) Neck Exam: Negative: JVD Chest Exam: Positive: Clear to auscultation, Diminished, Other (Decreased breath sounds auscultated right > left) Heart Exam: Positive: Rate Normal, Regular Rhythm, Normal S1, Normal S2 Abdomen Exam: Positive: Normal bowel sounds, Soft, Negative: Tenderness Extremity Exam: Positive: Other (Chronic Venous Stasis changes, dry skin noted in the lower extremities bilaterally), Negative: Edema, Tenderness, Swelling Psych Exam: Positive: Oriented x 3 Assessment /Plan Problems (1) Pneumonia Status: Acute Response to Treatment: Improving Discussed With: Patient Problem Specific Plan: Monitor Clinically Problem Text: Strep pneumo bacteremia secondary to CAP PO levaquin will complete 7 days failed doxycycline with fevers Known pulmonary nodules - repeated pneumonia - concern for mass/obstruction ct chest noted - b/l effusions/consolidations d/w cts medical management - lasix iv i/o's, daily weights replete electrolytes (2) Weight loss Status: Acute Discussed With: Patient Problem Specific Plan: Monitor Clinically Problem Text: No clear etiology, possibly unintentional from poor PO intake. Considering CT abd/pelvis, colonoscopy as outpatient. Will obtain FOBT. (3) Weakness Status: Acute Discussed With: Patient Problem Specific Plan: Consult Specialist, Monitor Clinically Problem Text: PT/OT eval/treat (4) Alcohol abuse Status: Chronic Discussed With: Patient Problem Specific Plan: Monitor Clinically Problem Text: No s/s of withdrawal folic acid, thiamine, MVI (5) Altered mental state Status: Acute Response to Treatment: Improving Discussed With: Patient Problem Specific Plan: Monitor Clinically Problem Text: likely metabolic encephalopathy. MRI brain appreciated. Subacute vermian infarct with lacunar infarct, small vessel ischemic disease. Neurology consultation appreciated. Aspirin and statin therapy. Mentation continues to improve. Significantly improved today. (6) HTN (hypertension) Status: Chronic Discussed With: Patient Problem Specific Plan: Monitor Clinically Problem Text: Receiving beta dash. (7) Dilated cardiomyopathy Status: Chronic Discussed With: Patient Problem Specific Plan: Monitor Clinically Problem Text: Likely secondary to alcohol abuse. Echo = systolic and diastolic dysfunction receiving BB, will consider ACEI if BP can tolerate. (8) TANESHA (acute kidney injury) Status: Resolved Discussed With: Patient Problem Specific Plan: Repeat Labs (9) Hyponatremia Status: Resolved Discussed With: Patient Problem Specific Plan: Repeat Labs (10) Sepsis Status: Resolved Problem Specific Plan: Monitor Clinically, Repeat Labs, Repeat Tests Problem Text: Sepsis on admission - hypothermic, leukopenia, bandemia - secondary to strep pneumo bacteremia complicated with strep pneumonia Plan/VTE VTE Prophylaxis Ordered?: Yes (TEDs) Plan/Urinary Catheter Urinary Catheter: Place Connell Reason for insertion/continuin: Critical Pt monitoring Plan Diet: Continue Current Activity: Continue Current Therapy: PT, OT Respiratory: Wean Oxygen Diagnostics: Repeat Labs in AM Continue diuresis with IV lasix. I/O's, daily weights repeat CXR Friday for interim eval Levaquin - to complete 7 days VS, I&O, 24H, Fishbone Vital Signs/I&O Vital Signs Date Time Temp Pulse Resp B/P (MAP) Pulse Ox O2 Delivery O2 Flow Rate FiO2 07/25/16 06:00 99.4 55 17 121/68 (85) 94 Nasal Cannula 2.0 I&O- Last 24 Hours up to 6 AM 07/25/16 06:00 Intake Total 180 ml Output Total 0 ml Balance 180 ml Laboratory Data 24H LABS Laboratory Tests 2 07/25/16 05:48: White Blood Count 7.0, Red Blood Count 2.67L, Hemoglobin 8.5L, Hematocrit 26.5L , Mean Corpuscular Volume 99.3H, Mean Corpuscular Hemoglobin 32.0, Mean Corpuscular Hemoglobin Concent 32.2, Red Cell Distribution Width 15.0H, Platelet Count 169, Neutrophils (%) (Auto) 73.9H, Lymphocytes (%) (Auto) 14.6L, Monocytes (%) (Auto) 4.8, Eosinophils (%) (Auto) 1.0, Basophils (%) (Auto) 1.2H , Neutrophils # (Auto) 5.2, Lymphocytes # (Auto) 1.3L, Monocytes # (Auto) 0.3, Eosinophils # (Auto) 0.1, Basophils # (Auto) 0.1, Large Unclassified Cells % 4.5H, Large Unclassified Cells # 0.3, Anion Gap 8, Glomerular Filtration Rate > 60.0, Blood Urea Nitrogen 8, Creatinine 0.82, Sodium Level 144, Potassium Level 2.9*L, Chloride Level 105, Carbon Dioxide Level 31, Calcium Level 7.6L, Magnesium Level 1.7L CBC/BMP Laboratory Tests 07/25/16 05:48 Red Blood Count 2.67 L, Mean Corpuscular Volume 99.3 H, Mean Corpuscular Hemoglobin 32.0, Mean Corpuscular Hemoglobin Concent 32.2, Red Cell Distribution Width 15.0 H, Neutrophils (%) (Auto) 73.9 H, Lymphocytes (%) (Auto ) 14.6 L, Monocytes (%) (Auto) 4.8, Eosinophils (%) (Auto) 1.0, Basophils (%) ( Auto) 1.2 H, Neutrophils # (Auto) 5.2, Lymphocytes # (Auto) 1.3 L, Monocytes # ( Auto) 0.3, Eosinophils # (Auto) 0.1, Basophils # (Auto) 0.1, Calcium Level 7.6 L Microbiology Microbiology 07/20/16 Blood Culture - Preliminary, Resulted No Growth after 72 hours. All specime... 07/20/16 Blood Culture - Preliminary, Resulted No Growth after 72 hours. All specime... 07/15/16 Blood Culture - Final, Complete NO GROWTH AFTER 5 DAYS 07/15/16 Blood Culture - Final, Complete NO GROWTH AFTER 5 DAYS 07/15/16 Respiratory Virus Panel (PCR) ([facility]ISREEN) - Final, Complete 07/15/16 Urine Culture - Final, Complete CINTHIA GARCAI MD July 25, 2016 08:42
[2016-07-25] MEDS ORDERED: MAG SULF 1GM/100ML (MAG RUN) 1 GM in APPROPRIATE DILUENT 1 EA IV ONE (08:45)
[2016-07-25] MEDS ORDERED: POTASSIUM CHLORIDE 10% LIQ 20 MEQ/15 ML UDC PO ONE (08:45)
[2016-07-25] MEDS: FUROSEMIDE 40 MG/4 ML VIAL (J1940) IV SCH ×3 (09:00→17:15)
[2016-07-25] MEDS: MULTIVITAMINS/MINERALS THERAP 1 TAB PO SCH (09:12)
[2016-07-25] MEDS: ASPIRIN 325 MG TAB PO SCH (09:12)
[2016-07-25] MEDS: ATORVASTATIN 20 MG TAB PO SCH (09:13)
[2016-07-25] MEDS: THIAMINE 100 MG TAB PO SCH (09:13)
[2016-07-25] MEDS: METOPROLOL TART 12.5 MG PER 1/2 TAB PO SCH ×2 (09:13→21:32)
[2016-07-25] MEDS: DOCUSATE SODIUM 100 MG CAP PO SCH ×2 (09:13→21:31)
[2016-07-25] MEDS: FOLIC ACID 1 MG TAB PO SCH (09:13)
[2016-07-25] MEDS ORDERED: FUROSEMIDE 40 MG/4 ML VIAL (J1940) IV ONE (10:15)
[2016-07-25 14:00] VITALS: BP 124/76
[2016-07-25 15:21] LABS: MAGNESIUM LEVEL 1.8 MG/DL (1.8-2.4); POTASSIUM SERUM 3.2 MEQ/L (3.5-5.1)
[2016-07-25 22:00] VITALS: BP 121/66
[2016-07-26] MEDS: IPRATROPIUM 0.5MG/ALBUTEROL 2.5MG INH SOL UD 3ML (DUONEB)(J7620) NEB SCH ×6 (03:26→23:22)
[2016-07-26] MEDS: LevoFLOXacin 750 MG TABLET PO SCH (05:23)
[2016-07-26 06:00] VITALS: BP 106/66
[2016-07-26 06:09] LABS: BASO # 0.1 K/mm3 (0.0-0.2); BASO % 1.3 % (0.0-1.0); EOS # 0.1 K/mm3 (0.0-0.50); EOS % 1.6 % (0.0-3.0); LARGE UNSTAINED CELL # 0.3 K/mm3 (0.0-0.4); LARGE UNSTAINED CELL % 4.1 % (0.0-4.0); LYMPH # 1.5 K/mm3 (1.5-4.5); LYMPH % 17.8 % (24.0-44.0); MEAN CORPUSCULAR HEMOGLOBIN 32.6 pg (27.0-33.0); MEAN CORPUSCULAR HGB CONC 33.3 g/dl (32.0-36.5); MEAN CORPUSCULAR VOLUME 97.7 fl (80.0-96.0); MONO # 0.4 K/mm3 (0.0-0.8); MONO % 5.2 % (0.0-5.0); NEUTROPHILS # 4.9 K/mm3 (1.8-7.7); PLATELET COUNT, AUTOMATED 189 k/mm3 (150-450); RED CELL DISTRIBUTION WIDTH 14.9 % (11.5-14.5)
[2016-07-26 06:22] LABS: ANION GAP 7 MEQ/L (8-16); BLOOD UREA NITROGEN 8 MG/DL (7-18); CALCIUM LEVEL 7.5 MG/DL (8.5-10.1); CARBON DIOXIDE LEVEL 32 MEQ/L (21-32); CHLORIDE LEVEL 100 MEQ/L (98-107); CREATININE FOR GFR 0.75 MG/DL (0.70-1.30); GLOMERULAR FILTRATION RATE > 60.0 (>56); GLUCOSE, FASTING 85 MG/DL (70-105); MAGNESIUM LEVEL 1.6 MG/DL (1.8-2.4); POTASSIUM SERUM 2.9 MEQ/L (3.5-5.1); SODIUM LEVEL 139 MEQ/L (136-145)
--- NOTE | 2016-07-26 06:28 | REP ---
RIGHT UPPER EXTREMITY DOPPLER VENOUS ULTRASOUND: 07/25/2016. Clinical history: Right upper extremity swelling, evaluate for DVT. Findings: No prior study. Standard duplex techniques were utilized. The right jugular and subclavian veins show color filling their lumen. Anterior to the jugular vein is a lymph node in the right neck 1.6 x 0.8 x 0.9 cm. This is enlarged. There is respiratory variation and augmented flow. The axillary, paired brachial veins of the deep system and the cephalic and basilic veins of the superficial system all show color flow, full compressibility and respiratory variation and augmentation of flow. Subcutaneous edema is seen extensively in the upper extremity. Impression: 1. There is no Doppler venous ultrasound evidence of DVT in the right upper extremity from the antecubital fossa to the subclavian and jugular vein. The vessels are fully patent with color flow, respiratory variation and augmented flow throughout. Where able, compression is complete from the axilla to the antecubital fossa. Signed by Moo Alonzo MD 07/26/2016 04:40 P
[2016-07-26] MEDS ORDERED: KCL 10MEQ IN 100ML SWI (KRUN) 10 MEQ in APPROPRIATE DILUENT 1 EA IV ONE ×4 (06:45→08:45)
[2016-07-26] MEDS ORDERED: KCL 20MEQ IN 100ML SWI (KRUN) 20 MEQ in APPROPRIATE DILUENT 1 EA IV ONE ×4 (06:45→08:45)
[2016-07-26] MEDS ORDERED: MAG SULF 1GM/100ML (MAG RUN) 1 GM in APPROPRIATE DILUENT 1 EA IV ONE ×2 (07:45→09:45)
[2016-07-26] MEDS: DOCUSATE SODIUM 100 MG CAP PO SCH ×3 (09:00→22:34)
[2016-07-26] MEDS ORDERED: POTASSIUM CHLORIDE 10 MEQ SR TABLET PO SCH (09:00)
[2016-07-26] MEDS: METOPROLOL TART 12.5 MG PER 1/2 TAB PO SCH ×2 (09:00→21:00)
[2016-07-26] MEDS: MULTIVITAMINS/MINERALS THERAP 1 TAB PO SCH (09:36)
[2016-07-26] MEDS: ASPIRIN 325 MG TAB PO SCH (09:37)
[2016-07-26] MEDS: THIAMINE 100 MG TAB PO SCH (09:37)
[2016-07-26] MEDS: FOLIC ACID 1 MG TAB PO SCH (09:37)
[2016-07-26] MEDS: ATORVASTATIN 20 MG TAB PO SCH (09:37)
[2016-07-26] MEDS: FUROSEMIDE 40 MG/4 ML VIAL (J1940) IV SCH ×3 (10:00→23:27)
--- NOTE | 2016-07-26 10:41 | IPNPDOC ---
Subjective Date Seen The patient was seen on 07/26/16. Subjective Chief Complaint/HPI The patient is a 55-year-old male admitted with a reason for visit of Pneumonia. General: Denies: ROS Unobtainable, Chills, Night Sweats, Fatigue, Malaise, Normal Appetite, Other Symptoms Constitutional: Denies: Chills, Fever, Malaise, Night Sweats, Weakness, Fatigue , Weight Loss, Lethargy, Other Eyes: Denies: Pain, Vision change, Conjunctivae inflammation, Eyelid inflammation, Redness, Other ENT: Denies: Head Aches, Ear Pain, Dysphagia, Sinus Congestion, Post Nasal Drip , Sore Throat, Epistaxis, Other Symptoms Skin: Denies: Rash, Lesions, Jaundice, Bruising, Itching, Dry, Breakdown, Nail Changes, Other Pulmonary: Reports: Cough, Denies: Dyspnea, Pleuritic Chest Pain, Other Symptoms Cardiovascular: Denies: Chest Pain, Palpitations, Orthopnea, Paroxysmal Noc. Dyspnea, Edema, Lt Headedness, Other Symptoms Gastrointestinal: Denies: Nausea, Vomiting, Abdominal Pain, Diarrhea, Constipation, Melena, Hematochezia, Other Symptoms Objective Physical Examination General Exam: Positive: Alert, Cooperative, No Acute Distress, Other ( dissheveled) Eye Exam: Positive: PERRLA, Conjunctiva & lids normal, EOMI ENT Exam: Positive: Atraumatic, Other ENT (dry mucous membranes) Neck Exam: Negative: JVD Chest Exam: Positive: Clear to auscultation, Diminished, Other (Decreased breath sounds auscultated right > left) Heart Exam: Positive: Rate Normal, Regular Rhythm, Normal S1, Normal S2 Abdomen Exam: Positive: Normal bowel sounds, Soft, Negative: Tenderness Extremity Exam: Positive: Other (Chronic Venous Stasis changes, dry skin noted in the lower extremities bilaterally), Negative: Edema, Tenderness, Swelling Psych Exam: Positive: Oriented x 3 Assessment /Plan Problems (1) Pneumonia Status: Acute Response to Treatment: Improving Discussed With: Patient Problem Specific Plan: Monitor Clinically Problem Text: Strep pneumo bacteremia secondary to CAP PO levaquin day 5/ failed doxycycline with fevers Known pulmonary nodules - repeated pneumonia - concern for mass/obstruction ct chest noted - b/l effusions/consolidations d/w cts medical management - lasix iv i/o's, daily weights replete electrolytes will transfer to PCU given aggressive diuresis and electrolyte abnormalities (2) Weight loss Status: Chronic Discussed With: Patient Problem Specific Plan: Monitor Clinically Problem Text: No clear etiology, possibly unintentional from poor PO intake. Continue to follow clinically. (3) Weakness Status: Acute Discussed With: Patient Problem Specific Plan: Consult Specialist, Monitor Clinically Problem Text: PT/OT eval/treat (4) Alcohol abuse Status: Chronic Discussed With: Patient Problem Specific Plan: Monitor Clinically Problem Text: No s/s of withdrawal folic acid, thiamine, MVI (5) Altered mental state Status: Acute Response to Treatment: Improving Discussed With: Patient Problem Specific Plan: Monitor Clinically Problem Text: likely metabolic encephalopathy. MRI brain appreciated. Subacute vermian infarct with lacunar infarct, small vessel ischemic disease. Neurology consultation appreciated. Aspirin and statin therapy. Mentation continues to improve. Significantly improved today. (6) HTN (hypertension) Status: Chronic Discussed With: Patient Problem Specific Plan: Monitor Clinically Problem Text: Receiving beta dash plus lasix. BB with hold parameters. (7) Dilated cardiomyopathy Status: Chronic Discussed With: Patient Problem Specific Plan: Monitor Clinically Problem Text: Likely secondary to alcohol abuse. Echo = systolic and diastolic dysfunction receiving BB, will consider ACEI when BP can tolerate. (8) TANESHA (acute kidney injury) Status: Resolved Discussed With: Patient Problem Specific Plan: Repeat Labs (9) Hyponatremia Status: Resolved Discussed With: Patient Problem Specific Plan: Repeat Labs (10) Sepsis Status: Resolved Problem Specific Plan: Monitor Clinically, Repeat Labs, Repeat Tests Problem Text: Sepsis on admission - hypothermic, leukopenia, bandemia - secondary to strep pneumo bacteremia complicated with strep pneumonia Plan/VTE VTE Prophylaxis Ordered?: Yes (TEDs) Plan/Urinary Catheter Urinary Catheter: Place Vazquez Reason for insertion/continuin: Critical Pt monitoring Plan Diet: Continue Current Activity: Continue Current Therapy: PT, OT Medications: Replete Electrolytes IV, Replete Electrolytes PO Respiratory: Wean Oxygen Diagnostics: Repeat Labs in AM VS, I&O, 24H, Fishbone Vital Signs/I&O Vital Signs Date Time Temp Pulse Resp B/P (MAP) Pulse Ox O2 Delivery O2 Flow Rate FiO2 07/26/16 09:00 58 110/58 07/26/16 06:00 98.3 22 96 Nasal Cannula 2.0 I&O- Last 24 Hours up to 6 AM 07/26/16 06:00 Intake Total 700 ml Output Total 3350 ml Balance -2650 ml Laboratory Data 24H LABS Laboratory Tests 2 07/25/16 14:49: Magnesium Level 1.8 07/25/16 15:43: Bedside Glucose (Misc Panel) 249H 07/26/16 05:40: Magnesium Level 1.6L, White Blood Count 7.0, Red Blood Count 2.62L, Hemoglobin 8.5L, Hematocrit 25.6L, Mean Corpuscular Volume 97.7H, Mean Corpuscular Hemoglobin 32.6, Mean Corpuscular Hemoglobin Concent 33.3, Red Cell Distribution Width 14.9H, Platelet Count 189, Neutrophils (%) (Auto) 70.0H, Lymphocytes (%) (Auto) 17.8L, Monocytes (%) (Auto) 5.2H, Eosinophils (%) (Auto) 1.6, Basophils (%) (Auto) 1.3H, Neutrophils # (Auto) 4.9, Lymphocytes # (Auto) 1.5, Monocytes # (Auto) 0.4, Eosinophils # (Auto) 0.1, Basophils # (Auto) 0.1, Large Unclassified Cells % 4.1H, Large Unclassified Cells # 0.3, Anion Gap 7L, Glomerular Filtration Rate > 60.0, Blood Urea Nitrogen 8, Creatinine 0.75, Sodium Level 139, Potassium Level 2.9*L, Chloride Level 100, Carbon Dioxide Level 32, Calcium Level 7.5L CBC/BMP Laboratory Tests 07/25/16 14:49 07/26/16 05:40 Red Blood Count 2.62 L, Mean Corpuscular Volume 97.7 H, Mean Corpuscular Hemoglobin 32.6, Mean Corpuscular Hemoglobin Concent 33.3, Red Cell Distribution Width 14.9 H, Neutrophils (%) (Auto) 70.0 H, Lymphocytes (%) (Auto ) 17.8 L, Monocytes (%) (Auto) 5.2 H, Eosinophils (%) (Auto) 1.6, Basophils (%) (Auto) 1.3 H, Neutrophils # (Auto) 4.9, Lymphocytes # (Auto) 1.5, Monocytes # ( Auto) 0.4, Eosinophils # (Auto) 0.1, Basophils # (Auto) 0.1, Calcium Level 7.5 L Microbiology Microbiology 07/20/16 Blood Culture - Final, Complete NO GROWTH AFTER 5 DAYS 07/20/16 Blood Culture - Final, Complete NO GROWTH AFTER 5 DAYS 07/25/16 Stool Occult Blood (NISREEN) - Final, Complete CINTHIA GARCIA MD July 26, 2016 10:41
[2016-07-26 13:00] VITALS: BP 110/68
[2016-07-26 13:07] LABS: MAGNESIUM LEVEL 2.2 MG/DL (1.8-2.4)
[2016-07-26] MEDS ORDERED: POTASSIUM CHLORIDE 10 MEQ SR TABLET PO ONE (15:45)
[2016-07-26 16:00] VITALS: BP 121/67
[2016-07-26 20:00] VITALS: BP 110/60
[2016-07-26] MEDS: ACETAMINOPHEN TAB 650MG DOSE (2X325MG) PO PRN (22:36)
[2016-07-27] VITALS (7 sets, daily range): BP systolic 100–129; BP diastolic 58–72
[2016-07-27] MEDS: IPRATROPIUM 0.5MG/ALBUTEROL 2.5MG INH SOL UD 3ML (DUONEB)(J7620) NEB SCH ×6 (03:38→23:27)
[2016-07-27 05:48] LABS: BASO # 0.1 K/mm3 (0.0-0.2); BASO % 1.2 % (0.0-1.0); EOS # 0.1 K/mm3 (0.0-0.50); EOS % 1.6 % (0.0-3.0); LARGE UNSTAINED CELL # 0.3 K/mm3 (0.0-0.4); LARGE UNSTAINED CELL % 4.9 % (0.0-4.0); LYMPH # 1.3 K/mm3 (1.5-4.5); LYMPH % 19.6 % (24.0-44.0); MEAN CORPUSCULAR HEMOGLOBIN 32.1 pg (27.0-33.0); MEAN CORPUSCULAR HGB CONC 32.2 g/dl (32.0-36.5); MEAN CORPUSCULAR VOLUME 99.6 fl (80.0-96.0); MONO # 0.3 K/mm3 (0.0-0.8); MONO % 4.6 % (0.0-5.0); NEUTROPHILS # 4.4 K/mm3 (1.8-7.7); NEUTROPHILS % 68.1 % (36.0-66.0); PLATELET COUNT, AUTOMATED 202 k/mm3 (150-450); RED CELL DISTRIBUTION WIDTH 14.5 % (11.5-14.5); WHITE BLOOD COUNT 6.5 K/mm3 (4.0-10.0)
[2016-07-27] MEDS: LevoFLOXacin 750 MG TABLET PO SCH (06:05)
[2016-07-27 06:11] LABS: ANION GAP 6 MEQ/L (8-16); BLOOD UREA NITROGEN 9 MG/DL (7-18); CALCIUM LEVEL 7.6 MG/DL (8.5-10.1); CARBON DIOXIDE LEVEL 34 MEQ/L (21-32); CHLORIDE LEVEL 97 MEQ/L (98-107); CREATININE FOR GFR 0.76 MG/DL (0.70-1.30); GLOMERULAR FILTRATION RATE > 60.0 (>56); GLUCOSE, FASTING 90 MG/DL (70-105); MAGNESIUM LEVEL 1.9 MG/DL (1.8-2.4); POTASSIUM SERUM 3.5 MEQ/L (3.5-5.1); SODIUM LEVEL 137 MEQ/L (136-145)
--- NOTE | 2016-07-27 08:04 | IPNPDOC ---
Subjective Date Seen The patient was seen on 07/27/16. Subjective Chief Complaint/HPI The patient is a 55-year-old male admitted with a reason for visit of Pneumonia. General: Denies: ROS Unobtainable, Chills, Night Sweats, Fatigue, Malaise, Normal Appetite, Other Symptoms Constitutional: Denies: Chills, Fever, Malaise, Night Sweats, Weakness, Fatigue , Weight Loss, Lethargy, Other Eyes: Denies: Pain, Vision change, Conjunctivae inflammation, Eyelid inflammation, Redness, Other ENT: Denies: Head Aches, Ear Pain, Dysphagia, Sinus Congestion, Post Nasal Drip , Sore Throat, Epistaxis, Other Symptoms Skin: Denies: Rash, Lesions, Jaundice, Bruising, Itching, Dry, Breakdown, Nail Changes, Other Pulmonary: Denies: Dyspnea, Cough, Pleuritic Chest Pain, Other Symptoms Cardiovascular: Denies: Chest Pain, Palpitations, Orthopnea, Paroxysmal Noc. Dyspnea, Edema, Lt Headedness, Other Symptoms Gastrointestinal: Denies: Nausea, Vomiting, Abdominal Pain, Diarrhea, Constipation, Melena, Hematochezia, Other Symptoms Genitourinary: Denies: Dysuria, Frequency, Incontinence, Hematuria, Retention, Other Symptoms Objective Physical Examination General Exam: Positive: Alert, Cooperative, No Acute Distress, Other ( dissheveled) Eye Exam: Positive: PERRLA, Conjunctiva & lids normal, EOMI ENT Exam: Positive: Atraumatic, Other ENT (dry mucous membranes) Neck Exam: Negative: JVD Chest Exam: Positive: Clear to auscultation, Diminished, Other (Decreased breath sounds auscultated right > left) Heart Exam: Positive: Rate Normal, Regular Rhythm, Normal S1, Normal S2 Telemetry: Positive: No significant arrhythmia Abdomen Exam: Positive: Normal bowel sounds, Soft, Negative: Tenderness Extremity Exam: Positive: Other (Chronic Venous Stasis changes, dry skin noted in the lower extremities bilaterally), Negative: Edema, Tenderness, Swelling Psych Exam: Positive: Oriented x 3 Assessment /Plan Problems (1) Pneumonia Status: Acute Response to Treatment: Improving Discussed With: Patient Problem Specific Plan: Monitor Clinically Problem Text: Strep pneumo bacteremia secondary to CAP PO levaquin day 6/7 failed doxycycline with fevers Known pulmonary nodules - repeated pneumonia - concern for mass/obstruction ct chest noted - b/l effusions/consolidations d/w cts medical management - lasix iv , aldactone i/o's, daily weights replete electrolytes (2) Weight loss Status: Chronic Discussed With: Patient Problem Specific Plan: Monitor Clinically Problem Text: No clear etiology, possibly unintentional from poor PO intake. Continue to follow clinically. (3) Weakness Status: Acute Discussed With: Patient Problem Specific Plan: Consult Specialist, Monitor Clinically Problem Text: PT/OT eval/treat (4) Alcohol abuse Status: Chronic Discussed With: Patient Problem Specific Plan: Monitor Clinically Problem Text: No s/s of withdrawal folic acid, thiamine, MVI (5) Altered mental state Status: Acute Response to Treatment: Improving Discussed With: Patient Problem Specific Plan: Monitor Clinically Problem Text: likely metabolic encephalopathy. MRI brain appreciated. Subacute vermian infarct with lacunar infarct, small vessel ischemic disease. Neurology consultation appreciated. Aspirin and statin therapy. Mentation continues to improve. Significantly improved today. (6) HTN (hypertension) Status: Chronic Discussed With: Patient Problem Specific Plan: Monitor Clinically Problem Text: Receiving beta dash plus lasix, aldactone. BB with hold parameters. (7) Dilated cardiomyopathy Status: Chronic Discussed With: Patient Problem Specific Plan: Monitor Clinically Problem Text: Likely secondary to alcohol abuse. Echo = systolic and diastolic dysfunction receiving BB, will consider ACEI when BP can tolerate. (8) TANESHA (acute kidney injury) Status: Resolved Discussed With: Patient Problem Specific Plan: Repeat Labs (9) Hyponatremia Status: Resolved Discussed With: Patient Problem Specific Plan: Repeat Labs (10) Sepsis Status: Resolved Problem Specific Plan: Monitor Clinically, Repeat Labs, Repeat Tests Problem Text: Sepsis on admission - hypothermic, leukopenia, bandemia - secondary to strep pneumo bacteremia complicated with strep pneumonia Plan/VTE VTE Prophylaxis Ordered?: Yes (TEDs) Plan/Urinary Catheter Urinary Catheter: Place Vazquez Reason for insertion/continuin: Critical Pt monitoring Plan Diet: Continue Current Activity: Continue Current Therapy: PT, OT Respiratory: Wean Oxygen Diagnostics: Repeat Labs in AM Continue diuresis with IV lasix, aldactone. Monitor electrolytes Repeat CXR today for interim eval Day 08/28 Levaquin for pneumonia/bacteremia/strep pneumo VS, I&O, 24H, Fishbone Vital Signs/I&O Vital Signs Date Time Temp Pulse Resp B/P (MAP) Pulse Ox O2 Delivery O2 Flow Rate FiO2 07/27/16 04:00 Nasal Cannula 2.0 07/27/16 04:00 98.1 77 16 117/69 (72) 92 I&O- Last 24 Hours up to 6 AM 07/27/16 06:00 Intake Total 640 ml Output Total 1650 ml Balance -1010 ml Laboratory Data 24H LABS Laboratory Tests 2 07/26/16 12:01: Magnesium Level 2.2 07/27/16 05:30: Magnesium Level 1.9, White Blood Count 6.5, Red Blood Count 2.64L, Hemoglobin 8.5L, Hematocrit 26.3L, Mean Corpuscular Volume 99.6H, Mean Corpuscular Hemoglobin 32.1, Mean Corpuscular Hemoglobin Concent 32.2, Red Cell Distribution Width 14.5, Platelet Count 202, Neutrophils (%) (Auto) 68.1H, Lymphocytes (%) (Auto) 19.6L, Monocytes (%) (Auto) 4.6, Eosinophils (%) (Auto) 1.6, Basophils (%) (Auto) 1.2H, Neutrophils # (Auto) 4.4, Lymphocytes # (Auto) 1.3L, Monocytes # (Auto) 0.3, Eosinophils # (Auto) 0.1, Basophils # (Auto) 0.1, Large Unclassified Cells % 4.9H, Large Unclassified Cells # 0.3, Anion Gap 6L, Glomerular Filtration Rate > 60.0, Blood Urea Nitrogen 9, Creatinine 0.76, Sodium Level 137, Potassium Level 3.5, Chloride Level 97L, Carbon Dioxide Level 34H, Calcium Level 7.6L CBC/BMP Laboratory Tests 07/26/16 12:01 07/27/16 05:30 Red Blood Count 2.64 L, Mean Corpuscular Volume 99.6 H, Mean Corpuscular Hemoglobin 32.1, Mean Corpuscular Hemoglobin Concent 32.2, Red Cell Distribution Width 14.5, Neutrophils (%) (Auto) 68.1 H, Lymphocytes (%) (Auto) 19.6 L, Monocytes (%) (Auto) 4.6, Eosinophils (%) (Auto) 1.6, Basophils (%) ( Auto) 1.2 H, Neutrophils # (Auto) 4.4, Lymphocytes # (Auto) 1.3 L, Monocytes # ( Auto) 0.3, Eosinophils # (Auto) 0.1, Basophils # (Auto) 0.1, Calcium Level 7.6 L Microbiology Microbiology 07/20/16 Blood Culture - Final, Complete NO GROWTH AFTER 5 DAYS 07/20/16 Blood Culture - Final, Complete NO GROWTH AFTER 5 DAYS 07/25/16 Stool Occult Blood (NISREEN) - Final, Complete CINTHIA GARCIA MD July 27, 2016 08:04
[2016-07-27] MEDS: FUROSEMIDE 40 MG/4 ML VIAL (J1940) IV SCH ×3 (08:46→23:41)
[2016-07-27] MEDS: MULTIVITAMINS/MINERALS THERAP 1 TAB PO SCH (08:47)
[2016-07-27] MEDS: ATORVASTATIN 20 MG TAB PO SCH (08:47)
[2016-07-27] MEDS: DOCUSATE SODIUM 100 MG CAP PO SCH ×2 (08:47→21:10)
[2016-07-27] MEDS: THIAMINE 100 MG TAB PO SCH (08:47)
[2016-07-27] MEDS: ASPIRIN 325 MG TAB PO SCH (08:47)
[2016-07-27] MEDS: METOPROLOL TART 12.5 MG PER 1/2 TAB PO SCH ×2 (08:48→21:00)
[2016-07-27] MEDS: FOLIC ACID 1 MG TAB PO SCH (08:48)
[2016-07-27] MEDS ORDERED: SPIRONOLACTONE 12.5MG PER 1/2 TABLET PEG SCH (09:00)
[2016-07-28] MEDS: IPRATROPIUM 0.5MG/ALBUTEROL 2.5MG INH SOL UD 3ML (DUONEB)(J7620) NEB SCH ×5 (03:19→21:01)
[2016-07-28 04:00] VITALS: BP 116/55
[2016-07-28] MEDS: LevoFLOXacin 750 MG TABLET PO SCH (05:35)
[2016-07-28 05:52] LABS: BASO # 0.1 K/mm3 (0.0-0.2); BASO % 0.9 % (0.0-1.0); EOS # 0.1 K/mm3 (0.0-0.50); EOS % 1.3 % (0.0-3.0); LARGE UNSTAINED CELL # 0.3 K/mm3 (0.0-0.4); LARGE UNSTAINED CELL % 3.5 % (0.0-4.0); LYMPH # 1.3 K/mm3 (1.5-4.5); LYMPH % 14.3 % (24.0-44.0); MEAN CORPUSCULAR HEMOGLOBIN 31.7 pg (27.0-33.0); MEAN CORPUSCULAR HGB CONC 32.7 g/dl (32.0-36.5); MEAN CORPUSCULAR VOLUME 97.2 fl (80.0-96.0); MONO # 0.5 K/mm3 (0.0-0.8); MONO % 6.3 % (0.0-5.0); NEUTROPHILS # 5.4 K/mm3 (1.8-7.7); NEUTROPHILS % 73.6 % (36.0-66.0); PLATELET COUNT, AUTOMATED 195 k/mm3 (150-450); RED CELL DISTRIBUTION WIDTH 14.7 % (11.5-14.5); WHITE BLOOD COUNT 7.4 K/mm3 (4.0-10.0)
[2016-07-28 06:07] LABS: ALBUMIN 1.8 GM/DL (3.2-5.2); ALBUMIN/GLOBULIN RATIO 0.39 (1.00-1.93); ALKALINE PHOSPHATASE 131 U/L (45-117); ALT/SGPT 72 U/L (12-78); AST/SGOT 110 U/L (15-37); BILIRUBIN,TOTAL 0.5 MG/DL (0.2-1.0); BLOOD UREA NITROGEN 12 MG/DL (7-18); CALCIUM LEVEL 7.4 MG/DL (8.5-10.1); CARBON DIOXIDE LEVEL 32 MEQ/L (21-32); CHLORIDE LEVEL 95 MEQ/L (98-107); CREATININE FOR GFR 0.95 MG/DL (0.70-1.30); GLOMERULAR FILTRATION RATE > 60.0 (>56); GLUCOSE, FASTING 120 MG/DL (70-105); MAGNESIUM LEVEL 1.7 MG/DL (1.8-2.4); TOTAL PROTEIN 6.4 GM/DL (6.4-8.2)
[2016-07-28 06:19] LABS: ANION GAP 8 MEQ/L (8-16); SODIUM LEVEL 135 MEQ/L (136-145)
[2016-07-28 06:46] LABS: POTASSIUM SERUM 2.9 MEQ/L (3.5-5.1)
--- NOTE | 2016-07-28 07:17 | REP ---
CHEST, TWO VIEWS: HISTORY: Followup. There is a discoid opacity in the right upper lobe. This is essentially unchanged to slightly improved. The fissural thickening seen on the prior exam has decreased. There is persistent left CP angle blunting. The vague increased density throughout the lung jones seen on the prior exam has nearly completely resolved. A persistent right lower lobe opacity is again noted. IMPRESSION: There has been some improvement. Signed by Kaden Araujo DO 07/28/2016 09:54 A
[2016-07-28 08:00] VITALS: BP 83/51
[2016-07-28] MEDS: FUROSEMIDE 40 MG/4 ML VIAL (J1940) IV SCH ×2 (08:00→16:00)
--- NOTE | 2016-07-28 08:13 | IPNPDOC ---
Subjective Date Seen The patient was seen on 07/28/16. Subjective Chief Complaint/HPI The patient is a 55-year-old male admitted with a reason for visit of Pneumonia. General: Denies: ROS Unobtainable, Chills, Night Sweats, Fatigue, Malaise, Normal Appetite, Other Symptoms Constitutional: Denies: Chills, Fever, Malaise, Night Sweats, Weakness, Fatigue , Weight Loss, Lethargy, Other Eyes: Denies: Pain, Vision change, Conjunctivae inflammation, Eyelid inflammation, Redness, Other ENT: Denies: Head Aches, Ear Pain, Dysphagia, Sinus Congestion, Post Nasal Drip , Sore Throat, Epistaxis, Other Symptoms Skin: Denies: Rash, Lesions, Jaundice, Bruising, Itching, Dry, Breakdown, Nail Changes, Other Pulmonary: Denies: Dyspnea, Cough, Pleuritic Chest Pain, Other Symptoms Cardiovascular: Denies: Chest Pain, Palpitations, Orthopnea, Paroxysmal Noc. Dyspnea, Edema, Lt Headedness, Other Symptoms Gastrointestinal: Denies: Nausea, Vomiting, Abdominal Pain, Diarrhea, Constipation, Melena, Hematochezia, Other Symptoms Objective Physical Examination General Exam: Positive: Alert, Cooperative, No Acute Distress, Other ( dissheveled) Eye Exam: Positive: PERRLA, Conjunctiva & lids normal, EOMI ENT Exam: Positive: Atraumatic, Other ENT (dry mucous membranes, edentulous) Chest Exam: Positive: Clear to auscultation, Diminished, Other (Decreased breath sounds auscultated right > left, improving) Heart Exam: Positive: Rate Normal, Regular Rhythm, Normal S1, Normal S2 Telemetry: Positive: No significant arrhythmia Abdomen Exam: Positive: Normal bowel sounds, Soft, Negative: Tenderness Extremity Exam: Positive: Other (Chronic Venous Stasis changes, dry skin noted in the lower extremities bilaterally), Negative: Edema Psych Exam: Positive: Oriented x 3 Assessment /Plan Problems (1) Pneumonia Status: Acute Response to Treatment: Improving Discussed With: Patient Problem Specific Plan: Monitor Clinically Problem Text: Strep pneumo bacteremia secondary to CAP PO levaquin day 7 failed doxycycline with fevers Known pulmonary nodules - repeated pneumonia - concern for mass/obstruction ct chest noted - b/l effusions/consolidations d/w cts medical management - lasix iv , aldactone i/o's, daily weights replete electrolytes repeat cxr with improvement - repeat again friday (2) Weight loss Status: Chronic Discussed With: Patient Problem Specific Plan: Monitor Clinically Problem Text: No clear etiology, possibly unintentional from poor PO intake. Continue to follow clinically. (3) Weakness Status: Acute Discussed With: Patient Problem Specific Plan: Consult Specialist, Monitor Clinically Problem Text: PT/OT eval/treat (4) Alcohol abuse Status: Chronic Discussed With: Patient Problem Specific Plan: Monitor Clinically Problem Text: No s/s of withdrawal folic acid, thiamine, MVI (5) Altered mental state Status: Resolved Discussed With: Patient Problem Specific Plan: Monitor Clinically Problem Text: likely metabolic encephalopathy. MRI brain appreciated. Subacute vermian infarct with lacunar infarct, small vessel ischemic disease. Neurology consultation appreciated. Aspirin and statin therapy. Mentation continues to improve. Significantly improved today. (6) HTN (hypertension) Status: Chronic Discussed With: Patient Problem Specific Plan: Monitor Clinically Problem Text: Receiving beta dash plus lasix, aldactone. BB with hold parameters. (7) Dilated cardiomyopathy Status: Chronic Discussed With: Patient Problem Specific Plan: Monitor Clinically Problem Text: Likely secondary to alcohol abuse. Echo = systolic and diastolic dysfunction receiving BB, will consider ACEI when BP can tolerate. (8) Hyponatremia Status: Resolved Discussed With: Patient Problem Specific Plan: Repeat Labs (9) Sepsis Status: Resolved Problem Specific Plan: Monitor Clinically, Repeat Labs, Repeat Tests Problem Text: Sepsis on admission - hypothermic, leukopenia, bandemia - secondary to strep pneumo bacteremia complicated with strep pneumonia (10) TANESHA (acute kidney injury) Status: Resolved Discussed With: Patient Problem Specific Plan: Repeat Labs Plan/VTE VTE Prophylaxis Ordered?: Yes (TEDs) Plan/Urinary Catheter Urinary Catheter: Place Vazquez Reason for insertion/continuin: Critical Pt monitoring Plan Diet: Continue Current Activity: Continue Current Therapy: PT, OT Diagnostics: Repeat Labs in AM Anticipated Discharge: Shelter VS, I&O, 24H, Fishbone Vital Signs/I&O Vital Signs Date Time Temp Pulse Resp B/P (MAP) Pulse Ox O2 Delivery O2 Flow Rate FiO2 07/28/16 04:00 Room Air 07/28/16 04:00 98.9 98 16 116/55 (75) 93 07/27/16 08:00 2.0 I&O- Last 24 Hours up to 6 AM 07/28/16 06:00 Intake Total 500 ml Output Total 2300 ml Balance -1800 ml Laboratory Data 24H LABS Laboratory Tests 2 07/28/16 05:16: White Blood Count 7.4, Red Blood Count 2.58L, Hemoglobin 8.2L, Hematocrit 25.1L , Mean Corpuscular Volume 97.2H, Mean Corpuscular Hemoglobin 31.7, Mean Corpuscular Hemoglobin Concent 32.7, Red Cell Distribution Width 14.7H, Platelet Count 195, Neutrophils (%) (Auto) 73.6H, Lymphocytes (%) (Auto) 14.3L, Monocytes (%) (Auto) 6.3H, Eosinophils (%) (Auto) 1.3, Basophils (%) (Auto) 0.9 , Neutrophils # (Auto) 5.4, Lymphocytes # (Auto) 1.3L, Monocytes # (Auto) 0.5, Eosinophils # (Auto) 0.1, Basophils # (Auto) 0.1, Large Unclassified Cells % 3.5 , Large Unclassified Cells # 0.3, Anion Gap 8, Glomerular Filtration Rate > 60.0 , Blood Urea Nitrogen 12, Creatinine 0.95, Sodium Level 135L, Potassium Level 2.9*L, Chloride Level 95L, Carbon Dioxide Level 32, Calcium Level 7.4L, Aspartate Amino Transf (AST/SGOT) 110H, Alanine Aminotransferase (ALT/SGPT) 72, Alkaline Phosphatase 131H, Total Bilirubin 0.5, Total Protein 6.4, Albumin 1.8L , Magnesium Level 1.7L, Albumin/Globulin Ratio 0.39L CBC/BMP Laboratory Tests 07/28/16 05:16 Red Blood Count 2.58 L, Mean Corpuscular Volume 97.2 H, Mean Corpuscular Hemoglobin 31.7, Mean Corpuscular Hemoglobin Concent 32.7, Red Cell Distribution Width 14.7 H, Neutrophils (%) (Auto) 73.6 H, Lymphocytes (%) (Auto ) 14.3 L, Monocytes (%) (Auto) 6.3 H, Eosinophils (%) (Auto) 1.3, Basophils (%) (Auto) 0.9, Neutrophils # (Auto) 5.4, Lymphocytes # (Auto) 1.3 L, Monocytes # ( Auto) 0.5, Eosinophils # (Auto) 0.1, Basophils # (Auto) 0.1, Calcium Level 7.4 L , Aspartate Amino Transf (AST/SGOT) 110 H, Alanine Aminotransferase (ALT/SGPT) 72, Alkaline Phosphatase 131 H, Total Bilirubin 0.5, Total Protein 6.4, Albumin 1.8 L Microbiology Microbiology 07/20/16 Blood Culture - Final, Complete NO GROWTH AFTER 5 DAYS 07/20/16 Blood Culture - Final, Complete NO GROWTH AFTER 5 DAYS 07/25/16 Stool Occult Blood (NISREEN) - Final, Complete CINTHIA GARCIA MD July 28, 2016 08:13
[2016-07-28] MEDS ORDERED: MAG SULF 1GM/100ML (MAG RUN) 1 GM in APPROPRIATE DILUENT 1 EA IV ONE (08:30)
[2016-07-28] MEDS ORDERED: POTASSIUM CHLORIDE 10% LIQ 20 MEQ/15 ML UDC PO ONE (08:30)
[2016-07-28 08:34] VITALS: BP 90/50
[2016-07-28] MEDS: SPIRONOLACTONE 12.5MG PER 1/2 TABLET PO SCH (08:41)
[2016-07-28] MEDS: THIAMINE 100 MG TAB PO SCH (08:41)
[2016-07-28] MEDS: FOLIC ACID 1 MG TAB PO SCH (08:41)
[2016-07-28] MEDS: MULTIVITAMINS/MINERALS THERAP 1 TAB PO SCH (08:41)
[2016-07-28] MEDS: ASPIRIN 325 MG TAB PO SCH (08:41)
[2016-07-28] MEDS: DOCUSATE SODIUM 100 MG CAP PO SCH ×2 (08:41→20:19)
[2016-07-28] MEDS: ATORVASTATIN 20 MG TAB PO SCH (08:41)
[2016-07-28] MEDS: METOPROLOL TART 12.5 MG PER 1/2 TAB PO SCH ×2 (08:42→20:19)
[2016-07-28 12:00] VITALS: BP 83/53
[2016-07-28 15:31] LABS: POTASSIUM SERUM 3.7 MEQ/L (3.5-5.1)
[2016-07-28 16:00] VITALS: BP 114/55
[2016-07-28 23:59] VITALS: BP 110/62
[2016-07-29] MEDS: FUROSEMIDE 40 MG/4 ML VIAL (J1940) IV SCH
[2016-07-29] MEDS: IPRATROPIUM 0.5MG/ALBUTEROL 2.5MG INH SOL UD 3ML (DUONEB)(J7620) NEB SCH ×7 (00:48→23:49)
[2016-07-29 04:45] VITALS: BP 117/62
[2016-07-29 05:35] LABS: MEAN CORPUSCULAR HEMOGLOBIN 32.7 pg (27.0-33.0); RED CELL DISTRIBUTION WIDTH 14.3 % (11.5-14.5); WHITE BLOOD COUNT 7.5 K/mm3 (4.0-10.0)
[2016-07-29 05:57] LABS: ANION GAP 5 MEQ/L (8-16); BLOOD UREA NITROGEN 8 MG/DL (7-18); CALCIUM LEVEL 7.9 MG/DL (8.5-10.1); CARBON DIOXIDE LEVEL 32 MEQ/L (21-32); CHLORIDE LEVEL 95 MEQ/L (98-107); CREATININE FOR GFR 0.72 MG/DL (0.70-1.30); GLOMERULAR FILTRATION RATE > 60.0 (>56); GLUCOSE, FASTING 92 MG/DL (70-105); MAGNESIUM LEVEL 1.9 MG/DL (1.8-2.4); POTASSIUM SERUM 3.5 MEQ/L (3.5-5.1); SODIUM LEVEL 132 MEQ/L (136-145)
[2016-07-29] MEDS: LevoFLOXacin 750 MG TABLET PO SCH (06:30)
[2016-07-29 08:00] VITALS: BP 95/57
[2016-07-29] MEDS: THIAMINE 100 MG TAB PO SCH (09:00)
[2016-07-29] MEDS: FOLIC ACID 1 MG TAB PO SCH (09:00)
[2016-07-29] MEDS: ASPIRIN 325 MG TAB PO SCH (09:00)
[2016-07-29] MEDS: METOPROLOL TART 12.5 MG PER 1/2 TAB PO SCH ×2 (09:00→20:49)
[2016-07-29] MEDS: MULTIVITAMINS/MINERALS THERAP 1 TAB PO SCH (09:00)
[2016-07-29] MEDS: SPIRONOLACTONE 12.5MG PER 1/2 TABLET PO SCH (09:00)
[2016-07-29] MEDS: DOCUSATE SODIUM 100 MG CAP PO SCH ×2 (09:00→22:31)
[2016-07-29] MEDS: ATORVASTATIN 20 MG TAB PO SCH (09:00)
--- NOTE | 2016-07-29 09:36 | REP ---
TWO VIEW CHEST: Two views of the chest are performed. COMPARISON: 07/27/2016 as well as other prior exams. Bibasilar opacities appear improved. There is persistent elevation of the right hemidiaphragm. The cardiomediastinal silhouette has not definitely changed. Right perihilar opacities have not changed. IMPRESSION: Improvement in bibasilar lung opacities. Signed by Keshav James MD 07/30/2016 04:00 P
[2016-07-29] MEDS ORDERED: SLF 3 ML SYR IV PRN (10:15)
[2016-07-29 12:00] VITALS: BP 96/64
[2016-07-29] MEDS: SLF 3 ML SYR IV SCH ×2 (13:11→22:53)
[2016-07-29 16:00] VITALS: BP 99/62
[2016-07-29 20:15] VITALS: BP 104/63
[2016-07-29 23:59] VITALS: BP 113/55
[2016-07-30] MEDS: IPRATROPIUM 0.5MG/ALBUTEROL 2.5MG INH SOL UD 3ML (DUONEB)(J7620) NEB SCH ×6 (04:00→23:16)
[2016-07-30 04:45] VITALS: BP 110/68
[2016-07-30 05:33] LABS: MEAN CORPUSCULAR HEMOGLOBIN 32.6 pg (27.0-33.0); MEAN CORPUSCULAR HGB CONC 32.8 g/dl (32.0-36.5); MEAN CORPUSCULAR VOLUME 99.2 fl (80.0-96.0); RED CELL DISTRIBUTION WIDTH 14.3 % (11.5-14.5); WHITE BLOOD COUNT 7.4 K/mm3 (4.0-10.0)
[2016-07-30 05:41] LABS: ANION GAP 8 MEQ/L (8-16); BLOOD UREA NITROGEN 11 MG/DL (7-18); CALCIUM LEVEL 7.8 MG/DL (8.5-10.1); CARBON DIOXIDE LEVEL 28 MEQ/L (21-32); CHLORIDE LEVEL 97 MEQ/L (98-107); CREATININE FOR GFR 0.62 MG/DL (0.70-1.30); GLOMERULAR FILTRATION RATE > 60.0 (>56); GLUCOSE, FASTING 93 MG/DL (70-105); POTASSIUM SERUM 3.2 MEQ/L (3.5-5.1); SODIUM LEVEL 133 MEQ/L (136-145)
[2016-07-30] MEDS: LevoFLOXacin 750 MG TABLET PO SCH (06:40)
[2016-07-30] MEDS: SLF 3 ML SYR IV SCH ×3 (06:41→21:37)
[2016-07-30 08:00] VITALS: BP 92/53
[2016-07-30] MEDS: DOCUSATE SODIUM 100 MG CAP PO SCH ×2 (08:03→21:37)
[2016-07-30] MEDS: THIAMINE 100 MG TAB PO SCH (08:04)
[2016-07-30] MEDS: SPIRONOLACTONE 12.5MG PER 1/2 TABLET PO SCH (08:04)
[2016-07-30] MEDS: METOPROLOL TART 12.5 MG PER 1/2 TAB PO SCH ×2 (08:04→21:37)
[2016-07-30] MEDS: MULTIVITAMINS/MINERALS THERAP 1 TAB PO SCH (08:04)
[2016-07-30] MEDS: ATORVASTATIN 20 MG TAB PO SCH (08:04)
[2016-07-30] MEDS: ASPIRIN 325 MG TAB PO SCH (08:04)
[2016-07-30] MEDS: FOLIC ACID 1 MG TAB PO SCH (08:04)
[2016-07-30 10:40] LABS: FERRITIN 307 NG/ML (26-388); PERCENT SATURATION 26.7 % (19.7-37.4); TOTAL IRON BINDING CAPACITY 195 UG/DL (250-450)
[2016-07-30 11:04] LABS: RETIC HEMOGLOBIN CONTENT CHr 30.9 PG (24-36); RETICULOCYTE % ADVIA2120 3.9 % (0.5-1.5)
[2016-07-30 11:41] VITALS: BP 112/59
[2016-07-30 16:22] VITALS: BP 97/59
--- NOTE | 2016-07-30 16:22 | IPNPDOC ---
Subjective Date Seen The patient was seen on 07/30/16. Subjective Chief Complaint/HPI The patient is a 55-year-old male admitted with a reason for visit of Pneumonia. Events since last encounter Feeling well, wants to go home, wants to get out of bed, but has not expressed much interest with nurses in doing the same, tolerated diet Constitutional: Denies: Chills, Fever Pulmonary: Denies: Dyspnea, Cough Cardiovascular: Denies: Chest Pain, Palpitations Gastrointestinal: Denies: Nausea, Vomiting, Abdominal Pain Objective Physical Examination General Exam: Positive: Alert, Cooperative, Other (dissheveled) Eye Exam: Negative: Sclera icteric ENT Exam: Positive: Atraumatic Chest Exam: Positive: Clear to auscultation, Diminished, Other (Decreased breath sounds auscultated right > left) Heart Exam: Positive: Rate Normal, Regular Rhythm, Normal S1, Normal S2 Telemetry: Positive: No significant arrhythmia Abdomen Exam: Positive: Normal bowel sounds, Soft, Negative: Tenderness Extremity Exam: Positive: Other (Chronic Venous Stasis changes, dry skin noted in the lower extremities bilaterally ), Negative: Edema Psych Exam: Positive: Oriented x 3 Assessment /Plan Problems (1) Pneumonia Status: Acute Response to Treatment: Improving Discussed With: Patient Problem Specific Plan: Monitor Clinically Problem Text: Strep pneumo bacteremia secondary to CAP PO levaquin day 8 failed doxycycline with fevers Known pulmonary nodules - repeated pneumonia - concern for mass/obstruction ct chest noted - b/l effusions/consolidations d/w cts medical management - lasix iv , aldactone i/o's, daily weights replete electrolytes for hypokalemia (2) Weight loss Status: Chronic Discussed With: Patient Problem Specific Plan: Monitor Clinically Problem Text: No clear etiology, possibly unintentional from poor PO intake. Continue to follow clinically. (3) Weakness Status: Acute Discussed With: Patient Problem Specific Plan: Consult Specialist, Monitor Clinically Problem Text: PT/OT eval/treat Discussed at multidisciplinary rounds (4) Alcohol abuse Status: Chronic Discussed With: Patient Problem Specific Plan: Monitor Clinically Problem Text: No s/s of withdrawal folic acid, thiamine, MVI (5) Altered mental state Status: Resolved Discussed With: Patient Problem Specific Plan: Monitor Clinically Problem Text: likely metabolic encephalopathy. MRI brain appreciated. Subacute vermian infarct with lacunar infarct, small vessel ischemic disease. Neurology consultation appreciated. Aspirin and statin therapy. Mentation continues to improve. Significantly improved today. (6) HTN (hypertension) Status: Chronic Discussed With: Patient Problem Specific Plan: Monitor Clinically Problem Text: Receiving beta dash plus lasix, aldactone. BB with hold parameters. (7) Dilated cardiomyopathy Status: Chronic Discussed With: Patient Problem Specific Plan: Monitor Clinically Problem Text: Likely secondary to alcohol abuse. Echo = systolic and diastolic dysfunction receiving BB, will consider ACEI when BP can tolerate. (8) Hyponatremia Status: Resolved Discussed With: Patient Problem Specific Plan: Repeat Labs (9) Sepsis Status: Resolved Problem Specific Plan: Monitor Clinically, Repeat Labs, Repeat Tests Problem Text: Sepsis on admission - hypothermic, leukopenia, bandemia - secondary to strep pneumo bacteremia complicated with strep pneumonia (10) TANESHA (acute kidney injury) Status: Resolved Discussed With: Patient Problem Specific Plan: Repeat Labs (11) Anemia Problem Text: Developing during stay- Has small amounts of blood in urine, stool occult neg once Does not appear iron deficient Check b12/folate May need transfusion during this stay Plan/VTE VTE Prophylaxis Ordered?: Yes (TEDs) Plan/Urinary Catheter Urinary Catheter: Place Vazquez Reason for insertion/continuin: Critical Pt monitoring Plan Diet: Continue Current Activity: Continue Current Therapy: PT, OT Diagnostics: Repeat Labs in AM Anticipated Discharge: Shelter VS, I&O, 24H, [facility] Vital Signs/I&O Vital Signs Date Time Temp Pulse Resp B/P (MAP) Pulse Ox O2 Delivery O2 Flow Rate FiO2 07/30/16 11:41 98.8 99 18 112/59 (76) 97 Room Air 07/27/16 08:00 2.0 I&O- Last 24 Hours up to 6 AM 07/30/16 06:00 Intake Total 1390 ml Output Total 1300 ml Balance 90 ml Laboratory Data 24H LABS Laboratory Tests 2 07/30/16 05:14: Anion Gap 8, Glomerular Filtration Rate > 60.0, Blood Urea Nitrogen 11, Creatinine 0.62L, Sodium Level 133L, Potassium Level 3.2L, Chloride Level 97L, Carbon Dioxide Level 28, Calcium Level 7.8L, Iron Level 52L, Total Iron Binding Capacity 195L, Transferrin % Saturation 26.7, Ferritin 307 07/30/16 10:44: Absolute Reticulocyte Count 95H, Percent Reticulocyte Count 3.90H, Reticulocyte Hgb Content (CHr) 30.9 5/9/17 12:00: Urine Appearance HAZY, Urine Color CHRISTOPHER, Urine pH 5.0, Urine Specific [place] 1.018, Urine Protein 1+H, Urine Glucose (UA) NEGATIVE, Urine Ketones NEGATIVE, Urine Urobilinogen 0.2, Urine Bilirubin NEGATIVE, Urine Leukocyte Esterase 1+H, Urine Blood NEGATIVE, Urine Nitrite NEGATIVE, Urine WBC (Auto) 31H, Urine RBC ( Auto) 116H, Urine Hyaline Casts (Auto) 0, Urine Bacteria (Auto) 1+H, Urine Squamous Epithelial Cells 0, Urine Mucus (Auto) SMALL, Urine Sperm (Auto) CBC/BMP Laboratory Tests 07/30/16 05:14 Red Blood Count 2.29 L, Mean Corpuscular Volume 99.2 H, Mean Corpuscular Hemoglobin 32.6, Mean Corpuscular Hemoglobin Concent 32.8, Red Cell Distribution Width 14.3, Calcium Level 7.8 L Microbiology Microbiology 07/29/16 Blood Culture - Preliminary, Resulted No growth after 24 hours . All specim... 07/29/16 Blood Culture - Preliminary, Resulted No growth after 24 hours . All specim... 07/20/16 Blood Culture - Final, Complete NO GROWTH AFTER 5 DAYS 07/20/16 Blood Culture - Final, Complete NO GROWTH AFTER 5 DAYS 07/25/16 Stool Occult Blood (NISREEN) - Final, Complete NIECY PETERSEN MD July 30, 2016 16:22
[2016-07-30 19:52] VITALS: BP 125/70
[2016-07-30] MEDS: ACETAMINOPHEN TAB 650MG DOSE (2X325MG) PO PRN (21:40)
[2016-07-30 23:43] VITALS: BP 96/59
[2016-07-31] MEDS: IPRATROPIUM 0.5MG/ALBUTEROL 2.5MG INH SOL UD 3ML (DUONEB)(J7620) NEB SCH ×6 (03:29→23:22)
[2016-07-31 04:52] VITALS: BP 105/61
[2016-07-31] MEDS: SLF 3 ML SYR IV SCH ×3 (05:03→21:09)
[2016-07-31] MEDS: LevoFLOXacin 750 MG TABLET PO SCH (05:03)
[2016-07-31 05:39] LABS: MEAN CORPUSCULAR HEMOGLOBIN 31.7 pg (27.0-33.0); MEAN CORPUSCULAR HGB CONC 32.6 g/dl (32.0-36.5); MEAN CORPUSCULAR VOLUME 97.4 fl (80.0-96.0); RED CELL DISTRIBUTION WIDTH 14.3 % (11.5-14.5); WHITE BLOOD COUNT 6.9 K/mm3 (4.0-10.0)
[2016-07-31 05:50] LABS: ANION GAP 6 MEQ/L (8-16); BLOOD UREA NITROGEN 8 MG/DL (7-18); CALCIUM LEVEL 7.7 MG/DL (8.5-10.1); CARBON DIOXIDE LEVEL 29 MEQ/L (21-32); CHLORIDE LEVEL 98 MEQ/L (98-107); CREATININE FOR GFR 0.59 MG/DL (0.70-1.30); GLOMERULAR FILTRATION RATE > 60.0 (>56); GLUCOSE, FASTING 92 MG/DL (70-105); SODIUM LEVEL 133 MEQ/L (136-145)
[2016-07-31 07:54] LABS: MAGNESIUM LEVEL 1.9 MG/DL (1.8-2.4)
[2016-07-31 08:00] VITALS: BP 89/57
[2016-07-31] MEDS: ATORVASTATIN 20 MG TAB PO SCH (08:45)
[2016-07-31] MEDS: ASPIRIN 325 MG TAB PO SCH (08:46)
[2016-07-31] MEDS: THIAMINE 100 MG TAB PO SCH (08:46)
[2016-07-31] MEDS: MULTIVITAMINS/MINERALS THERAP 1 TAB PO SCH (08:46)
[2016-07-31] MEDS: SPIRONOLACTONE 12.5MG PER 1/2 TABLET PO SCH (08:46)
[2016-07-31] MEDS: DOCUSATE SODIUM 100 MG CAP PO SCH ×2 (08:46→21:07)
[2016-07-31] MEDS: FOLIC ACID 1 MG TAB PO SCH (08:46)
[2016-07-31] MEDS: POTASSIUM CHLORIDE 10 MEQ SR TABLET PO SCH ×2 (08:46→21:07)
[2016-07-31] MEDS: METOPROLOL TART 12.5 MG PER 1/2 TAB PO SCH ×2 (08:47→21:08)
[2016-07-31 09:52] LABS: VITAMIN B12 LEVEL 996 PG/ML (247-911)
[2016-07-31 11:18] LABS: FOLATE > 24.0 NG/ML (>5.4)
[2016-07-31 12:00] VITALS: BP 109/60
--- NOTE | 2016-07-31 13:46 | IPNPDOC ---
Subjective Date Seen The patient was seen on 07/31/16. Subjective Chief Complaint/HPI The patient is a 55-year-old male admitted with a reason for visit of Pneumonia. Events since last encounter Feeling ok- not out of bed much yesterday- willing to work with PT- questions answered about transfusion- no history of previous transfusion- no history of blood loss Pulmonary: Denies: Dyspnea, Cough Cardiovascular: Denies: Chest Pain, Palpitations Gastrointestinal: Denies: Nausea, Vomiting, Abdominal Pain Objective Physical Examination General Exam: Positive: Alert, Cooperative, No Acute Distress, Other ( dissheveled) Eye Exam: Negative: Sclera icteric ENT Exam: Positive: Atraumatic Chest Exam: Positive: Clear to auscultation, Diminished, Negative: Rhonchi, Wheezing Heart Exam: Positive: Rate Normal, Regular Rhythm, Normal S1, Normal S2 Telemetry: Positive: No significant arrhythmia Abdomen Exam: Positive: Normal bowel sounds, Soft, Negative: Tenderness Extremity Exam: Positive: Other (Chronic Venous Stasis changes, dry skin noted in the lower extremities bilaterally.), Negative: Edema Psych Exam: Positive: Oriented x 3 Assessment /Plan Problems (1) Pneumonia Status: Acute Response to Treatment: Improving Discussed With: Patient Problem Specific Plan: Monitor Clinically Problem Text: Strep pneumo bacteremia secondary to CAP PO levaquin day 9 failed doxycycline with fevers Known pulmonary nodules - repeated pneumonia - concern for mass/obstruction ct chest noted - b/l effusions/consolidations d/w cts medical management - lasix iv , aldactone i/o's, daily weights repleted electrolytes twice today for hypokalemia (2) Weight loss Status: Chronic Discussed With: Patient Problem Specific Plan: Monitor Clinically Problem Text: No clear etiology, possibly unintentional from poor PO intake. Continue to follow clinically as out pt (3) Weakness Status: Acute Discussed With: Patient Problem Specific Plan: Consult Specialist, Monitor Clinically Problem Text: PT/OT eval/treat- delayed based on protocol for anemia Discussed at multidisciplinary rounds (4) Alcohol abuse Status: Chronic Discussed With: Patient Problem Specific Plan: Monitor Clinically Problem Text: No s/s of withdrawal folic acid level not low, thiamine, MVI (5) Altered mental state Status: Resolved Discussed With: Patient Problem Specific Plan: Monitor Clinically Problem Text: likely metabolic encephalopathy. MRI brain appreciated. Subacute vermian infarct with lacunar infarct, small vessel ischemic disease. Neurology consultation appreciated. Aspirin and statin therapy. Mentation continues to improve. (6) HTN (hypertension) Status: Chronic Discussed With: Patient Problem Specific Plan: Monitor Clinically Problem Text: Receiving beta dash plus lasix, aldactone. BB with hold parameters. (7) Dilated cardiomyopathy Status: Chronic Discussed With: Patient Problem Specific Plan: Monitor Clinically Problem Text: Likely secondary to alcohol abuse. Echo = systolic and diastolic dysfunction receiving BB, will consider ACEI when BP can tolerate. (8) Hyponatremia Status: Resolved Discussed With: Patient Problem Specific Plan: Repeat Labs (9) Sepsis Status: Resolved Problem Specific Plan: Monitor Clinically, Repeat Labs, Repeat Tests Problem Text: Sepsis on admission - hypothermic, leukopenia, bandemia - secondary to strep pneumo bacteremia complicated with strep pneumonia (10) TANESHA (acute kidney injury) Status: Resolved Discussed With: Patient Problem Specific Plan: Repeat Labs (11) Anemia Problem Text: Developing during stay- Has small amounts of blood in urine, stool occult neg twice Does not appear iron deficient b12/folate not low peripheral smear in am Obtained informed consent for transfusion today- will transfuse one unit, repeat h&h Plan/VTE VTE Prophylaxis Ordered?: Yes (TEDs) Plan/Urinary Catheter Reason for insertion/continuin: Critical Pt monitoring Plan Diet: Continue Current Activity: Continue Current Therapy: PT, OT Diagnostics: Repeat Labs in AM Anticipated Discharge: Longterm VS, I&O, 24H, [facility] Vital Signs/I&O Vital Signs Date Time Temp Pulse Resp B/P (MAP) Pulse Ox O2 Delivery O2 Flow Rate FiO2 07/31/16 12:00 100.1 95 18 109/60 (76) 100 Room Air 07/27/16 08:00 2.0 I&O- Last 24 Hours up to 6 AM 07/31/16 05:59 Intake Total 420 ml Output Total 1175 ml Balance -755 ml Laboratory Data 24H LABS Laboratory Tests 2 07/31/16 05:23: Anion Gap 6L, Glomerular Filtration Rate > 60.0, Blood Urea Nitrogen 8, Creatinine 0.59L, Sodium Level 133L, Potassium Level 3.0L, Chloride Level 98, Carbon Dioxide Level 29, Calcium Level 7.7L, Magnesium Level 1.9 07/31/16 07:25: Vitamin B12 Level 996H, Folate > 24.0 CBC/BMP Laboratory Tests 07/31/16 05:23 Red Blood Count 2.27 L, Mean Corpuscular Volume 97.4 H, Mean Corpuscular Hemoglobin 31.7, Mean Corpuscular Hemoglobin Concent 32.6, Red Cell Distribution Width 14.3, Calcium Level 7.7 L Microbiology Microbiology 07/29/16 Blood Culture - Preliminary, Resulted No Growth after 48 hours. All Specime... 07/29/16 Blood Culture - Preliminary, Resulted No Growth after 48 hours. All Specime... 07/30/16 Stool Occult Blood (NISREEN) - Final, Complete 07/25/16 Stool Occult Blood (NISREEN) - Final, Complete NIECY PETERSEN MD July 31, 2016 13:46
[2016-07-31 16:00] VITALS: BP 104/67
[2016-07-31 20:00] VITALS: BP 125/72
[2016-08-01] VITALS: BP 105/60
[2016-08-01] MEDS: IPRATROPIUM 0.5MG/ALBUTEROL 2.5MG INH SOL UD 3ML (DUONEB)(J7620) NEB SCH ×6 (03:45→23:25)
[2016-08-01 04:00] VITALS: BP 115/65
[2016-08-01] MEDS: LevoFLOXacin 750 MG TABLET PO SCH (05:12)
[2016-08-01] MEDS: SLF 3 ML SYR IV SCH ×3 (05:12→20:46)
[2016-08-01 05:23] LABS: REASON FOR REVIEW ANEMIA / RBC MORPH
[2016-08-01 05:25] LABS: MEAN CORPUSCULAR HEMOGLOBIN 32.4 pg (27.0-33.0); MEAN CORPUSCULAR HGB CONC 33.3 g/dl (32.0-36.5); MEAN CORPUSCULAR VOLUME 97.1 fl (80.0-96.0); WHITE BLOOD COUNT 8.7 K/mm3 (4.0-10.0)
[2016-08-01 05:42] LABS: ANION GAP 6 MEQ/L (8-16); BLOOD UREA NITROGEN 6 MG/DL (7-18); CALCIUM LEVEL 8.2 MG/DL (8.5-10.1); CARBON DIOXIDE LEVEL 26 MEQ/L (21-32); CHLORIDE LEVEL 103 MEQ/L (98-107); CREATININE FOR GFR 0.59 MG/DL (0.70-1.30); GLOMERULAR FILTRATION RATE > 60.0 (>56); GLUCOSE, FASTING 91 MG/DL (70-105); POTASSIUM SERUM 4.2 MEQ/L (3.5-5.1); SODIUM LEVEL 135 MEQ/L (136-145)
[2016-08-01] MEDS: SPIRONOLACTONE 12.5MG PER 1/2 TABLET PO SCH (09:27)
[2016-08-01] MEDS: ASPIRIN 325 MG TAB PO SCH (09:27)
[2016-08-01] MEDS: ATORVASTATIN 20 MG TAB PO SCH (09:27)
[2016-08-01] MEDS: METOPROLOL TART 12.5 MG PER 1/2 TAB PO SCH ×2 (09:28→20:43)
[2016-08-01] MEDS: FOLIC ACID 1 MG TAB PO SCH (09:28)
[2016-08-01] MEDS: MULTIVITAMINS/MINERALS THERAP 1 TAB PO SCH (09:28)
[2016-08-01] MEDS: DOCUSATE SODIUM 100 MG CAP PO SCH ×2 (09:28→20:42)
[2016-08-01] MEDS: THIAMINE 100 MG TAB PO SCH (09:28)
[2016-08-01 11:00] VITALS: BP 116/88
[2016-08-01 14:00] VITALS: BP 106/60
--- NOTE | 2016-08-01 18:27 | IPNPDOC ---
Subjective Date Seen The patient was seen on 08/01/16. Subjective Chief Complaint/HPI The patient is a 55-year-old male admitted with a reason for visit of Pneumonia. Events since last encounter Feeling ok- no complaint- tolerating diet, wants to go home, no chest pain, willing to work with PT Constitutional: Denies: Chills, Fever Pulmonary: Denies: Dyspnea, Cough Cardiovascular: Denies: Chest Pain, Palpitations Gastrointestinal: Denies: Nausea, Vomiting Objective Physical Examination General Exam: Positive: Alert, Cooperative, No Acute Distress, Other ( dissheveled) Eye Exam: Positive: Conjunctiva & lids normal, Negative: Sclera icteric ENT Exam: Positive: Atraumatic Chest Exam: Positive: Clear to auscultation, Diminished, Negative: Rhonchi, Wheezing Heart Exam: Positive: Rate Normal, Regular Rhythm, Normal S1, Normal S2 Telemetry: Positive: No significant arrhythmia Abdomen Exam: Positive: Normal bowel sounds, Soft, Negative: Tenderness Extremity Exam: Positive: Other (Chronic Venous Stasis changes, dry skin noted in the lower extremities bilaterally.), Negative: Edema Psych Exam: Positive: Oriented x 3 Assessment /Plan Problems (1) Pneumonia Status: Acute Response to Treatment: Improving Discussed With: Patient Problem Specific Plan: Monitor Clinically Problem Text: Strep pneumo bacteremia secondary to CAP DC antibiotic today failed doxycycline with fevers Known pulmonary nodules - repeated pneumonia - concern for mass/obstruction ct chest noted - b/l effusions/consolidations d/w cts medical management - lasix iv , aldactone i/o's, daily weights (2) Weight loss Status: Chronic Discussed With: Patient Problem Specific Plan: Monitor Clinically Problem Text: No clear etiology, possibly unintentional from poor PO intake. Continue to follow clinically as out pt (3) Weakness Status: Acute Discussed With: Patient Problem Specific Plan: Consult Specialist, Monitor Clinically Problem Text: PT/OT eval/treat- delayed based on protocol for anemia Did relatively well with PT 08/01/16- still plan for skilled discharge (4) Alcohol abuse Status: Chronic Discussed With: Patient Problem Specific Plan: Monitor Clinically Problem Text: No s/s of withdrawal folic acid level not low, thiamine, MVI (5) Altered mental state Status: Resolved Discussed With: Patient Problem Specific Plan: Monitor Clinically Problem Text: likely metabolic encephalopathy. MRI brain appreciated. Subacute vermian infarct with lacunar infarct, small vessel ischemic disease. Neurology consultation appreciated. Aspirin and statin therapy. Mentation stable. (6) HTN (hypertension) Status: Chronic Discussed With: Patient Problem Specific Plan: Monitor Clinically Problem Text: Receiving beta dash plus lasix, aldactone. BB with hold parameters. (7) Dilated cardiomyopathy Status: Chronic Discussed With: Patient Problem Specific Plan: Monitor Clinically Problem Text: Likely secondary to alcohol abuse. Echo = systolic and diastolic dysfunction receiving BB, will consider ACEI when BP can tolerate. (8) Hyponatremia Status: Resolved Discussed With: Patient Problem Specific Plan: Repeat Labs (9) Sepsis Status: Resolved Problem Specific Plan: Monitor Clinically, Repeat Labs, Repeat Tests Problem Text: Sepsis on admission - hypothermic, leukopenia, bandemia - secondary to strep pneumo bacteremia complicated with strep pneumonia (10) TANESHA (acute kidney injury) Status: Resolved Discussed With: Patient Problem Specific Plan: Repeat Labs (11) Anemia Problem Text: Developing during stay- Has small amounts of blood in urine, stool occult neg twice Does not appear iron deficient b12/folate not low peripheral smear suggests acute blood loss - repeat occult stool Transfuse one unit of blood 07/31/16 Plan/VTE VTE Prophylaxis Ordered?: Yes (TEDs) Plan/Urinary Catheter Reason for insertion/continuin: Critical Pt monitoring Plan Diet: Continue Current Activity: Continue Current Therapy: PT, OT Diagnostics: Repeat Labs in AM Anticipated Discharge: Shelter VS, I&O, 24H, Counts Include [facility] B[facility] At [facility] Vital Signs/I&O Vital Signs Date Time Temp Pulse Resp B/P (MAP) Pulse Ox O2 Delivery O2 Flow Rate FiO2 08/01/16 14:00 98.7 87 17 106/60 (75) 100 Room Air 07/27/16 08:00 2.0 I&O- Last 24 Hours up to 6 AM 08/01/16 05:59 Intake Total 2400 ml Output Total 1500 ml Balance 900 ml Laboratory Data 24H LABS Laboratory Tests 2 08/01/16 05:04: Differential Slide Review Report, Differential Pathologist's Review ANEMIA / RBC MORPH, Peripheral Blood Smear Path Consult PERIPHERAL SMEAR, Anion Gap 6L, Glomerular Filtration Rate > 60.0, Blood Urea Nitrogen 6L, Creatinine 0.59L, Sodium Level 135L, Potassium Level 4.2#, Chloride Level 103, Carbon Dioxide Level 26, Calcium Level 8.2L CBC/BMP Laboratory Tests 08/01/16 05:04 Red Blood Count 2.81 L, Mean Corpuscular Volume 97.1 H, Mean Corpuscular Hemoglobin 32.4, Mean Corpuscular Hemoglobin Concent 33.3, Red Cell Distribution Width 16.0 H, Calcium Level 8.2 L Microbiology Microbiology 07/29/16 Blood Culture - Preliminary, Resulted No Growth after 72 hours. All specime... 07/29/16 Blood Culture - Preliminary, Resulted No Growth after 72 hours. All specime... 07/30/16 Stool Occult Blood (NISREEN) - Final, Complete 07/25/16 Stool Occult Blood (NISREEN) - Final, Complete NIECY PETERSEN MD August 01, 2016 18:27
[2016-08-01 22:00] VITALS: BP 115/61
[2016-08-02] MEDS: IPRATROPIUM 0.5MG/ALBUTEROL 2.5MG INH SOL UD 3ML (DUONEB)(J7620) NEB SCH ×6 (03:30→23:17)
[2016-08-02 05:09] LABS: MEAN CORPUSCULAR HEMOGLOBIN 32.1 pg (27.0-33.0); MEAN CORPUSCULAR HGB CONC 33.8 g/dl (32.0-36.5); MEAN CORPUSCULAR VOLUME 95.1 fl (80.0-96.0); RED CELL DISTRIBUTION WIDTH 15.6 % (11.5-14.5); WHITE BLOOD COUNT 9.3 K/mm3 (4.0-10.0)
[2016-08-02 05:31] LABS: ANION GAP 8 MEQ/L (8-16); BLOOD UREA NITROGEN 4 MG/DL (7-18); CALCIUM LEVEL 8.1 MG/DL (8.5-10.1); CARBON DIOXIDE LEVEL 23 MEQ/L (21-32); CHLORIDE LEVEL 102 MEQ/L (98-107); CREATININE FOR GFR 0.55 MG/DL (0.70-1.30); GLOMERULAR FILTRATION RATE > 60.0 (>56); GLUCOSE, FASTING 93 MG/DL (70-105); POTASSIUM SERUM 4.3 MEQ/L (3.5-5.1); SODIUM LEVEL 133 MEQ/L (136-145)
[2016-08-02 06:00] VITALS: BP 121/63
[2016-08-02] MEDS: SLF 3 ML SYR IV SCH ×3 (06:00→20:30)
[2016-08-02] MEDS: LevoFLOXacin 750 MG TABLET PO SCH (06:08)
[2016-08-02] MEDS: MULTIVITAMINS/MINERALS THERAP 1 TAB PO SCH (08:30)
[2016-08-02] MEDS: ATORVASTATIN 20 MG TAB PO SCH (08:30)
[2016-08-02] MEDS: ASPIRIN 325 MG TAB PO SCH (08:30)
[2016-08-02] MEDS: DOCUSATE SODIUM 100 MG CAP PO SCH ×2 (08:30→20:30)
[2016-08-02] MEDS: METOPROLOL TART 12.5 MG PER 1/2 TAB PO SCH ×2 (08:30→20:23)
[2016-08-02] MEDS: THIAMINE 100 MG TAB PO SCH (08:30)
[2016-08-02] MEDS: SPIRONOLACTONE 12.5MG PER 1/2 TABLET PO SCH (08:30)
[2016-08-02] MEDS: FOLIC ACID 1 MG TAB PO SCH (08:31)
--- NOTE | 2016-08-02 10:17 | REP ---
CT STUDY OF THE CHEST WITHOUT CONTRAST: HISTORY: Fever. Comparison chest CT study is from July 23, 2016. Comparison is also made with the prior CT study from July 14, 2016. FINDINGS: There is a small right pleural effusion. This is improved from the most recent prior study of Jul 23 2016. The left pleural effusion noted previously is resolved. There is some coarse plate-like atelectasis in the left lower lobe which is improved from the prior study. The left lung is otherwise clear. The infiltrates previously noted in the left upper lobe have resolved. On the right there is a band of atelectasis and consolidation persisting in the right upper lobe just above the minor fissure which is improved. This extends into the posterior segment of the right upper lobe where it is also improved but not resolved. There is some improved interstitial consolidation in the posterior apex on the right. There is improved aeration in the right lower lobe with some residual atelectatic change and air bronchograms. No new area of infiltrate is seen. Incidental note is again made of somewhat unusual pattern of myocardial calcification involving the lateral wall posterior wall of the left ventricle as well as what appears to be both papillary muscles. The left ventricle is dilated. The calcified wall does not appear to be particularly thin which is usually seen in post myocardial infarction calcification. There is some multifocal left coronary artery vascular calcification again noted as well. Myocardial calcification can also be seen in association with sepsis, chronic renal insufficiency. In any event, this is unchanged from July 11, 2016. IMPRESSION: 1. Gradually improving bilateral pneumonia. Resolved left pleural effusion. Small residual but improved right pleural effusion. Patchy areas of atelectasis and residual consolidation seen in the right upper lobe and right lower lobe. 2. Left ventricular myocardial and papillary muscle calcification again noted. Post infarct versus other etiology. Signed by Archie Turner MD 08/02/2016 10:27 A
[2016-08-02 12:06] LABS: YEAST LIKE CELL URINE AUTO LARGE
[2016-08-02 14:00] VITALS: BP 105/56
--- NOTE | 2016-08-02 16:03 | IPNPDOC ---
Subjective Date Seen The patient was seen on 08/02/16. Subjective Chief Complaint/HPI The patient is a 55-year-old male admitted with a reason for visit of Pneumonia. Events since last encounter Had fever last night, feels well today, no abd pain, no cough, no chest pain, no diarrhea- wants to go home, willing to work with PT Constitutional: Denies: Chills, Fever Pulmonary: Denies: Dyspnea, Cough Cardiovascular: Denies: Chest Pain Gastrointestinal: Denies: Nausea, Vomiting, Abdominal Pain Objective Physical Examination General Exam: Positive: Alert, No Acute Distress, Other (dissheveled) Eye Exam: Negative: Sclera icteric ENT Exam: Positive: Atraumatic Chest Exam: Positive: Clear to auscultation, Diminished, Negative: Rhonchi, Wheezing Heart Exam: Positive: Rate Normal, Regular Rhythm, Normal S1, Normal S2 Telemetry: Positive: No significant arrhythmia Abdomen Exam: Positive: Normal bowel sounds, Soft, Negative: Tenderness Extremity Exam: Positive: Other (Chronic Venous Stasis changes, dry skin noted in the lower extremities bilaterally), Negative: Edema Psych Exam: Positive: Oriented x 3 Assessment /Plan Problems (1) Pneumonia Status: Acute Response to Treatment: Improving Discussed With: Patient Problem Specific Plan: Monitor Clinically Problem Text: Strep pneumo bacteremia secondary to CAP Had recurrent fever 08/01/16- elected to continue antibiotics repeat blood cx, resp panel, urine legionella, ct chest, ua failed doxycycline with fevers Known pulmonary nodules - repeated pneumonia - concern for mass/obstruction ct chest noted - b/l effusions/consolidations- ct chest repeated 08/02/16 generally improved d/w cts medical management - lasix iv , aldactone i/o's, daily weights (2) Weight loss Status: Chronic Discussed With: Patient Problem Specific Plan: Monitor Clinically Problem Text: No clear etiology, possibly unintentional from poor PO intake. Continue to follow clinically as out pt (3) Weakness Status: Acute Discussed With: Patient Problem Specific Plan: Consult Specialist, Monitor Clinically Problem Text: PT/OT eval/treat- delayed based on protocol for anemia Did relatively well with PT 08/01/16 (no note yet 08/02/16)- still plan for skilled discharge (4) Alcohol abuse Status: Chronic Discussed With: Patient Problem Specific Plan: Monitor Clinically Problem Text: No s/s of withdrawal folic acid level not low, thiamine, MVI (5) Altered mental state Status: Resolved Discussed With: Patient Problem Specific Plan: Monitor Clinically Problem Text: likely metabolic encephalopathy. MRI brain appreciated. Subacute vermian infarct with lacunar infarct, small vessel ischemic disease. Neurology consultation appreciated. Aspirin and statin therapy. Mentation stable. (6) HTN (hypertension) Status: Chronic Discussed With: Patient Problem Specific Plan: Monitor Clinically Problem Text: Receiving beta dash plus lasix, aldactone. BB with hold parameters. (7) Dilated cardiomyopathy Status: Chronic Discussed With: Patient Problem Specific Plan: Monitor Clinically Problem Text: Likely secondary to alcohol abuse. Echo = systolic and diastolic dysfunction receiving BB, will consider ACEI when BP can tolerate. (8) Hyponatremia Status: Resolved Discussed With: Patient Problem Specific Plan: Repeat Labs (9) Sepsis Status: Resolved Problem Specific Plan: Monitor Clinically, Repeat Labs, Repeat Tests Problem Text: Sepsis on admission - hypothermic, leukopenia, bandemia - secondary to strep pneumo bacteremia complicated with strep pneumonia (10) TANESHA (acute kidney injury) Status: Resolved Discussed With: Patient Problem Specific Plan: Repeat Labs (11) Anemia Problem Text: Developing during stay- Has blood in urine on 08/02/16, stool occult neg twice Does not appear iron deficient b12/folate not low peripheral smear suggests acute blood loss - repeat occult stool Transfuse one unit of blood 07/31/16 Plan/VTE VTE Prophylaxis Ordered?: Yes (TEDs) Plan/Urinary Catheter Reason for insertion/continuin: Critical Pt monitoring Plan Diet: Continue Current Activity: Continue Current Therapy: PT, OT Diagnostics: Repeat Labs in AM Anticipated Discharge: [facility], I&O, 24H, [facility] Vital Signs/I&O Vital Signs Date Time Temp Pulse Resp B/P (MAP) Pulse Ox O2 Delivery O2 Flow Rate FiO2 08/02/16 14:00 98.6 87 18 105/56 (72) 99 Room Air 07/27/16 08:00 2.0 I&O- Last 24 Hours up to 6 AM 08/02/16 06:00 Intake Total 1740 ml Output Total 2050 ml Balance -310 ml Laboratory Data 24H LABS Laboratory Tests 2 08/02/16 04:42: Anion Gap 8, Glomerular Filtration Rate > 60.0, Blood Urea Nitrogen 4L, Creatinine 0.55L, Sodium Level 133L, Potassium Level 4.3, Chloride Level 102, Carbon Dioxide Level 23, Calcium Level 8.1L 08/02/16 11:08: Urine Appearance CLOUDYH, Urine Color CHRISTOPHER, Urine pH 8.0, Urine Specific [place] 1.014, Urine Protein 1+H, Urine Glucose (UA) NEGATIVE, Urine Ketones NEGATIVE, Urine Urobilinogen 0.2, Urine Bilirubin NEGATIVE, Urine Leukocyte Esterase 1+H, Urine Blood 3+H, Urine Nitrite NEGATIVE, Urine WBC (Auto) 58H, Urine RBC (Auto) TNTCH, Urine Hyaline Casts (Auto) 0, Urine Bacteria (Auto) NEGATIVE, Urine Squamous Epithelial Cells 0, Urine Mucus (Auto) SMALL, Urine Yeast-Like Cells (Auto) LARGEH, Urine Sperm (Auto) CBC/BMP Laboratory Tests 08/02/16 04:42 Red Blood Count 2.75 L, Mean Corpuscular Volume 95.1, Mean Corpuscular Hemoglobin 32.1, Mean Corpuscular Hemoglobin Concent 33.8, Red Cell Distribution Width 15.6 H, Calcium Level 8.1 L Microbiology Microbiology 08/02/16 Blood Culture, Received Pending 08/02/16 Blood Culture, Received Pending 07/29/16 Blood Culture - Preliminary, Resulted No Growth after 72 hours. All specime... 07/29/16 Blood Culture - Preliminary, Resulted No Growth after 72 hours. All specime... 07/30/16 Stool Occult Blood (NISREEN) - Final, Complete 07/25/16 Stool Occult Blood (NISREEN) - Final, Complete 08/02/16 Respiratory Virus Panel (PCR) (NISREEN) - Final, Complete NIECY PETERSEN MD August 02, 2016 16:02
[2016-08-02 22:00] VITALS: BP 102/68
[2016-08-03] MEDS: IPRATROPIUM 0.5MG/ALBUTEROL 2.5MG INH SOL UD 3ML (DUONEB)(J7620) NEB SCH ×6 (03:16→23:25)
[2016-08-03] MEDS: LevoFLOXacin 750 MG TABLET PO SCH (05:12)
[2016-08-03] MEDS: SLF 3 ML SYR IV SCH ×3 (05:12→22:00)
[2016-08-03 06:00] VITALS: BP 94/54
[2016-08-03 06:12] LABS: MEAN CORPUSCULAR HEMOGLOBIN 32.1 pg (27.0-33.0); MEAN CORPUSCULAR HGB CONC 33.2 g/dl (32.0-36.5); MEAN CORPUSCULAR VOLUME 96.9 fl (80.0-96.0); RED CELL DISTRIBUTION WIDTH 15.4 % (11.5-14.5); WHITE BLOOD COUNT 10.3 K/mm3 (4.0-10.0)
[2016-08-03 06:18] LABS: ANION GAP 11 MEQ/L (8-16); BLOOD UREA NITROGEN 5 MG/DL (7-18); CALCIUM LEVEL 8.1 MG/DL (8.5-10.1); CARBON DIOXIDE LEVEL 21 MEQ/L (21-32); CHLORIDE LEVEL 100 MEQ/L (98-107); CREATININE FOR GFR 0.54 MG/DL (0.70-1.30); GLOMERULAR FILTRATION RATE > 60.0 (>56); GLUCOSE, FASTING 96 MG/DL (70-105); POTASSIUM SERUM 4.2 MEQ/L (3.5-5.1); SODIUM LEVEL 132 MEQ/L (136-145)
[2016-08-03] MEDS: METOPROLOL TART 12.5 MG PER 1/2 TAB PO SCH ×2 (07:50→21:36)
[2016-08-03] MEDS: MULTIVITAMINS/MINERALS THERAP 1 TAB PO SCH (08:39)
[2016-08-03] MEDS: FOLIC ACID 1 MG TAB PO SCH (08:39)
[2016-08-03] MEDS: ASPIRIN 325 MG TAB PO SCH (08:39)
[2016-08-03] MEDS: SPIRONOLACTONE 12.5MG PER 1/2 TABLET PO SCH (08:39)
[2016-08-03] MEDS: DOCUSATE SODIUM 100 MG CAP PO SCH ×2 (08:39→21:36)
[2016-08-03] MEDS: THIAMINE 100 MG TAB PO SCH (08:39)
[2016-08-03] MEDS: ATORVASTATIN 20 MG TAB PO SCH (08:39)
[2016-08-03] MEDS: MOM 30ML SUSPENSION UDC PO PRN (08:40)
[2016-08-03] MEDS ORDERED: DARBEPOETIN 100 MCG/0.5 ML *NON-DIALYSIS* SYRINGE (J0881) SC ONE (11:00)
[2016-08-03 14:00] VITALS: BP 125/62
--- NOTE | 2016-08-03 15:45 | IPNPDOC ---
Subjective Date Seen The patient was seen on 08/03/16. Subjective Chief Complaint/HPI The patient is a 55-year-old male admitted with a reason for visit of Pneumonia. Events since last encounter Feeling bettrer, does not think that he has been febrile, tolerating diet, feeling stronger Constitutional: Denies: Chills, Fever Skin: Denies: Rash, Lesions Pulmonary: Denies: Dyspnea, Cough Cardiovascular: Denies: Chest Pain, Palpitations Gastrointestinal: Denies: Nausea, Vomiting, Abdominal Pain Objective Physical Examination General Exam: Positive: Alert, Cooperative, No Acute Distress, Other ( dissheveled) Eye Exam: Negative: Sclera icteric ENT Exam: Positive: Atraumatic Chest Exam: Positive: Clear to auscultation, Diminished, Negative: Rhonchi, Wheezing Heart Exam: Positive: Rate Normal, Regular Rhythm, Normal S1, Normal S2 Telemetry: Positive: No significant arrhythmia Abdomen Exam: Positive: Normal bowel sounds, Soft, Negative: Tenderness Extremity Exam: Positive: Other (Chronic Venous Stasis changes, dry skin noted in the lower extremities bilaterally), Negative: Edema Psych Exam: Positive: Oriented x 3 Assessment /Plan Problems (1) Pneumonia Status: Acute Response to Treatment: Improving Discussed With: Patient Problem Specific Plan: Monitor Clinically Problem Text: Strep pneumo bacteremia secondary to CAP Had recurrent fever 08/01/16- tmax in last 24 hours 100.3- elected to continue antibiotics failed doxycycline with fevers Known pulmonary nodules - repeated pneumonia - concern for mass/obstruction ct chest noted - b/l effusions/consolidations- ct chest repeated 08/02/16 generally improved d/w cts medical management - lasix iv , aldactone i/o's, daily weights (2) Weight loss Status: Chronic Discussed With: Patient Problem Specific Plan: Monitor Clinically Problem Text: No clear etiology, possibly unintentional from poor PO intake. Continue to follow clinically as out pt (3) Weakness Status: Acute Discussed With: Patient Problem Specific Plan: Consult Specialist, Monitor Clinically Problem Text: PT/OT eval/treat- delayed based on protocol for anemia Did relatively well with PT 08/01/16 (no note yet 08/02/16)- still plan for skilled discharge (4) Alcohol abuse Status: Chronic Discussed With: Patient Problem Specific Plan: Monitor Clinically Problem Text: No s/s of withdrawal folic acid level not low, thiamine, MVI (5) Altered mental state Status: Resolved Discussed With: Patient Problem Specific Plan: Monitor Clinically Problem Text: likely metabolic encephalopathy. MRI brain appreciated. Subacute vermian infarct with lacunar infarct, small vessel ischemic disease. Neurology consultation appreciated. Aspirin and statin therapy. Mentation stable. (6) HTN (hypertension) Status: Chronic Discussed With: Patient Problem Specific Plan: Monitor Clinically Problem Text: Receiving beta dash plus lasix, aldactone. BB with hold parameters. (7) Dilated cardiomyopathy Status: Chronic Discussed With: Patient Problem Specific Plan: Monitor Clinically Problem Text: Likely secondary to alcohol abuse. Echo = systolic and diastolic dysfunction receiving BB, will consider ACEI when BP can tolerate. BP still soft as of 08/03/16 (8) Hyponatremia Status: Resolved Discussed With: Patient Problem Specific Plan: Repeat Labs (9) Sepsis Status: Resolved Problem Specific Plan: Monitor Clinically, Repeat Labs, Repeat Tests Problem Text: Sepsis on admission - hypothermic, leukopenia, bandemia - secondary to strep pneumo bacteremia complicated with strep pneumonia (10) TANESHA (acute kidney injury) Status: Resolved Discussed With: Patient Problem Specific Plan: Repeat Labs (11) Anemia Problem Text: Developing during stay but improving as of 08/03/16- Has blood in urine on 08/02/16, stool occult neg twice Does not appear iron deficient b12/folate not low peripheral smear suggests acute blood loss - repeat occult stool Transfuse one unit of blood 07/31/16 Plan/VTE VTE Prophylaxis Ordered?: Yes (TEDs) Plan/Urinary Catheter Reason for insertion/continuin: Critical Pt monitoring Plan Diet: Continue Current Activity: Continue Current Therapy: PT, OT Diagnostics: Repeat Labs in AM Anticipated Discharge: [facility], I&O, 24H, [facility] Vital Signs/I&O Vital Signs Date Time Temp Pulse Resp B/P (MAP) Pulse Ox O2 Delivery O2 Flow Rate FiO2 08/03/16 14:00 99.0 95 18 125/62 (83) 98 Room Air I&O- Last 24 Hours up to 6 AM 08/03/16 05:59 Intake Total 1320 ml Output Total 950 ml Balance 370 ml Laboratory Data 24H LABS Laboratory Tests 2 08/03/16 04:56: Anion Gap 11, Glomerular Filtration Rate > 60.0, Blood Urea Nitrogen 5L, Creatinine 0.54L, Sodium Level 132L, Potassium Level 4.2, Chloride Level 100, Carbon Dioxide Level 21, Calcium Level 8.1L CBC/BMP Laboratory Tests 08/03/16 04:56 Red Blood Count 2.82 L, Mean Corpuscular Volume 96.9 H, Mean Corpuscular Hemoglobin 32.1, Mean Corpuscular Hemoglobin Concent 33.2, Red Cell Distribution Width 15.4 H, Calcium Level 8.1 L Microbiology Microbiology 08/02/16 Blood Culture - Preliminary, Resulted No growth after 24 hours . All specim... 08/02/16 Blood Culture - Preliminary, Resulted No growth after 24 hours . All specim... 07/29/16 Blood Culture - Final, Complete NO GROWTH AFTER 5 DAYS 07/29/16 Blood Culture - Final, Complete NO GROWTH AFTER 5 DAYS 07/30/16 Stool Occult Blood (NISREEN) - Final, Complete 07/25/16 Stool Occult Blood (NISREEN) - Final, Complete 08/02/16 Respiratory Virus Panel (PCR) (NISREEN) - Final, Complete NIECY PETERSEN MD August 03, 2016 15:45
[2016-08-03 22:00] VITALS: BP 128/67
[2016-08-04 06:00] VITALS: BP 109/63
[2016-08-04] MEDS: SLF 3 ML SYR IV SCH (06:16)
[2016-08-04 06:19] LABS: MEAN CORPUSCULAR HEMOGLOBIN 31.4 pg (27.0-33.0); MEAN CORPUSCULAR HGB CONC 33.1 g/dl (32.0-36.5); MEAN CORPUSCULAR VOLUME 95.1 fl (80.0-96.0); RED CELL DISTRIBUTION WIDTH 15.4 % (11.5-14.5); WHITE BLOOD COUNT 10.5 K/mm3 (4.0-10.0)
[2016-08-04 06:28] LABS: ANION GAP 8 MEQ/L (8-16); BLOOD UREA NITROGEN 5 MG/DL (7-18); CALCIUM LEVEL 8.2 MG/DL (8.5-10.1); CARBON DIOXIDE LEVEL 23 MEQ/L (21-32); CHLORIDE LEVEL 102 MEQ/L (98-107); CREATININE FOR GFR 0.51 MG/DL (0.70-1.30); GLOMERULAR FILTRATION RATE > 60.0 (>56); GLUCOSE, FASTING 91 MG/DL (70-105); POTASSIUM SERUM 4.1 MEQ/L (3.5-5.1); SODIUM LEVEL 133 MEQ/L (136-145)
[2016-08-04] MEDS: IPRATROPIUM 0.5MG/ALBUTEROL 2.5MG INH SOL UD 3ML (DUONEB)(J7620) NEB SCH ×2 (08:16→11:44)
[2016-08-04] MEDS: ATORVASTATIN 20 MG TAB PO SCH (08:28)
[2016-08-04] MEDS: MULTIVITAMINS/MINERALS THERAP 1 TAB PO SCH (08:28)
[2016-08-04] MEDS: DOCUSATE SODIUM 100 MG CAP PO SCH ×2 (08:28→20:21)
[2016-08-04] MEDS: ASPIRIN 325 MG TAB PO SCH (08:28)
[2016-08-04] MEDS: THIAMINE 100 MG TAB PO SCH (08:28)
[2016-08-04] MEDS: FOLIC ACID 1 MG TAB PO SCH (08:28)
[2016-08-04] MEDS: SPIRONOLACTONE 12.5MG PER 1/2 TABLET PO SCH (08:28)
[2016-08-04] MEDS: METOPROLOL TART 12.5 MG PER 1/2 TAB PO SCH ×2 (08:28→20:21)
[2016-08-04] MEDS ORDERED: ONDANSETRON 4 MG TAB (S0181) PO PRN (11:45)
[2016-08-04 14:00] VITALS: BP 118/60
--- NOTE | 2016-08-04 16:22 | IPNPDOC ---
Subjective Date Seen The patient was seen on 08/04/16. Subjective Chief Complaint/HPI The patient is a 55-year-old male admitted with a reason for visit of Pneumonia. Events since last encounter Patient without complaint. tolerating diet, we discuss the area of swelling lateral/superior to left eye- he says it is long standing- his says that it comes and goes and sometimes drains Constitutional: Denies: Chills, Fever Pulmonary: Denies: Dyspnea, Cough Cardiovascular: Denies: Chest Pain, Palpitations Gastrointestinal: Denies: Nausea, Vomiting, Abdominal Pain Objective Physical Examination General Exam: Positive: Alert, Cooperative, No Acute Distress, Other ( dissheveled) ENT Exam: Positive: Atraumatic Chest Exam: Positive: Clear to auscultation, Diminished, Negative: Rhonchi, Wheezing Heart Exam: Positive: Rate Normal, Regular Rhythm, Normal S1, Normal S2 Telemetry: Positive: No significant arrhythmia Abdomen Exam: Positive: Normal bowel sounds, Soft, Negative: Tenderness Extremity Exam: Positive: Other (Chronic Venous Stasis changes, dry skin noted in the lower extremities bilaterally), Negative: Edema Psych Exam: Positive: Oriented x 3 Assessment /Plan Problems (1) Pneumonia Status: Acute Response to Treatment: Improving Discussed With: Patient Problem Specific Plan: Monitor Clinically Problem Text: Strep pneumo bacteremia secondary to CAP Had recurrent fever 08/01/16- tmax in last 24 hours 100.3- elected to continue antibiotics- discontinued on evening of 08/03/16 failed doxycycline with fevers Known pulmonary nodules - repeated pneumonia - concern for mass/obstruction ct chest noted - b/l effusions/consolidations- ct chest repeated 08/02/16 generally improved d/w cts medical management - lasix iv , aldactone i/o's, daily weights (2) Weight loss Status: Chronic Discussed With: Patient Problem Specific Plan: Monitor Clinically Problem Text: No clear etiology, possibly unintentional from poor PO intake. Continue to follow clinically as out pt (3) Weakness Status: Acute Discussed With: Patient Problem Specific Plan: Consult Specialist, Monitor Clinically Problem Text: PT/OT eval/treat- delayed based on protocol for anemia Did relatively well with PT 08/01/16 (no note yet 08/02/16)- still plan for skilled discharge Has thickened, long fungal toe nails which may be causing pain with ambulation- the patient's suggests that he minimizes his discomfort (4) Alcohol abuse Status: Chronic Discussed With: Patient Problem Specific Plan: Monitor Clinically Problem Text: No s/s of withdrawal folic acid level not low, thiamine, MVI (5) Altered mental state Status: Resolved Discussed With: Patient Problem Specific Plan: Monitor Clinically Problem Text: likely metabolic encephalopathy. MRI brain appreciated. Subacute vermian infarct with lacunar infarct, small vessel ischemic disease. Neurology consultation appreciated. Aspirin and statin therapy. Mentation stable. (6) HTN (hypertension) Status: Chronic Discussed With: Patient Problem Specific Plan: Monitor Clinically Problem Text: Receiving beta dash plus lasix, aldactone. BB with hold parameters. (7) Dilated cardiomyopathy Status: Chronic Discussed With: Patient Problem Specific Plan: Monitor Clinically Problem Text: Likely secondary to alcohol abuse. Echo = systolic and diastolic dysfunction receiving BB, will consider ACEI when BP can tolerate. BP still soft as of 08/03/16 (8) Hyponatremia Status: Resolved Discussed With: Patient Problem Specific Plan: Repeat Labs (9) Sepsis Status: Resolved Problem Specific Plan: Monitor Clinically, Repeat Labs, Repeat Tests Problem Text: Sepsis on admission - hypothermic, leukopenia, bandemia - secondary to strep pneumo bacteremia complicated with strep pneumonia (10) TANESHA (acute kidney injury) Status: Resolved Discussed With: Patient Problem Specific Plan: Repeat Labs (11) Anemia Problem Text: Developing during stay but improving as of 08/03/16- Has blood in urine on 08/02/16, stool occult neg twice Does not appear iron deficient b12/folate not low peripheral smear suggests acute blood loss- follow trend Transfuse one unit of blood 07/31/16 Plan/VTE VTE Prophylaxis Ordered?: Yes (TEDs) Plan/Urinary Catheter Reason for insertion/continuin: Critical Pt monitoring Plan Diet: Continue Current Activity: Continue Current Therapy: PT, OT Diagnostics: Repeat Labs in AM Anticipated Discharge: [facility] Vital Signs/I&O Vital Signs Date Time Temp Pulse Resp B/P (MAP) Pulse Ox O2 Delivery O2 Flow Rate FiO2 08/04/16 14:00 99.4 93 20 118/60 (79) 97 Room Air I&O- Last 24 Hours up to 6 AM 08/04/16 06:00 Intake Total 2110 ml Output Total 1950 ml Balance 160 ml Laboratory Data 24H LABS Laboratory Tests 2 08/04/16 05:02: Anion Gap 8, Glomerular Filtration Rate > 60.0, Blood Urea Nitrogen 5L, Creatinine 0.51L, Sodium Level 133L, Potassium Level 4.1, Chloride Level 102, Carbon Dioxide Level 23, Calcium Level 8.2L CBC/BMP Laboratory Tests 08/04/16 05:02 Red Blood Count 2.65 L, Mean Corpuscular Volume 95.1, Mean Corpuscular Hemoglobin 31.4, Mean Corpuscular Hemoglobin Concent 33.1, Red Cell Distribution Width 15.4 H, Calcium Level 8.2 L Microbiology Microbiology 08/02/16 Blood Culture - Preliminary, Resulted No Growth after 48 hours. All Specime... 08/02/16 Blood Culture - Preliminary, Resulted No Growth after 48 hours. All Specime... 07/29/16 Blood Culture - Final, Complete NO GROWTH AFTER 5 DAYS 07/29/16 Blood Culture - Final, Complete NO GROWTH AFTER 5 DAYS 07/30/16 Stool Occult Blood (NISREEN) - Final, Complete 07/25/16 Stool Occult Blood (NISREEN) - Final, Complete 08/02/16 Respiratory Virus Panel (PCR) (NISREEN) - Final, Complete NIECY PETERSEN MD August 04, 2016 16:22
[2016-08-04] MEDS: MOM 30ML SUSPENSION UDC PO PRN (20:23)
[2016-08-04 22:00] VITALS: BP 130/70
[2016-08-05 06:00] VITALS: BP 103/58
[2016-08-05] MEDS: MULTIVITAMINS/MINERALS THERAP 1 TAB PO SCH (08:36)
[2016-08-05] MEDS: FOLIC ACID 1 MG TAB PO SCH (08:37)
[2016-08-05] MEDS: THIAMINE 100 MG TAB PO SCH (08:37)
[2016-08-05] MEDS: SPIRONOLACTONE 12.5MG PER 1/2 TABLET PO SCH (08:37)
[2016-08-05] MEDS: ASPIRIN 325 MG TAB PO SCH (08:37)
[2016-08-05] MEDS: DOCUSATE SODIUM 100 MG CAP PO SCH ×2 (08:37→20:57)
[2016-08-05] MEDS: ATORVASTATIN 20 MG TAB PO SCH (08:37)
[2016-08-05] MEDS: METOPROLOL TART 12.5 MG PER 1/2 TAB PO SCH ×2 (08:38→20:57)
[2016-08-05 14:00] VITALS: BP 131/63
--- NOTE | 2016-08-05 20:39 | IPNPDOC ---
Subjective Date Seen The patient was seen on 08/05/16. Subjective Chief Complaint/HPI The patient is a 55-year-old male admitted with a reason for visit of Pneumonia. Events since last encounter Feeling well, no complaint, tolerates diet, no complaint of foot pain,wants to get out of hospital Constitutional: Denies: Chills, Fever Pulmonary: Denies: Dyspnea, Cough Cardiovascular: Denies: Chest Pain, Palpitations Gastrointestinal: Denies: Nausea, Vomiting, Abdominal Pain Objective Physical Examination General Exam: Positive: Alert, No Acute Distress, Other (dissheveled) ENT Exam: Positive: Atraumatic Chest Exam: Positive: Clear to auscultation, Diminished, Negative: Rhonchi, Wheezing Heart Exam: Positive: Rate Normal, Regular Rhythm, Normal S1, Normal S2 Telemetry: Positive: No significant arrhythmia Abdomen Exam: Positive: Normal bowel sounds, Soft, Negative: Tenderness Extremity Exam: Positive: Other (Chronic Venous Stasis changes, dry skin noted in the lower extremities bilaterally), Negative: Edema Psych Exam: Positive: Oriented x 3 Assessment /Plan Problems (1) Pneumonia Status: Acute Response to Treatment: Improving Discussed With: Patient Problem Specific Plan: Monitor Clinically Problem Text: Strep pneumo bacteremia secondary to CAP Had recurrent fever 08/01/16- tmax in last 24 hours 100.3- elected to continue antibiotics- discontinued on evening of 08/03/16 failed doxycycline with fevers Known pulmonary nodules - repeated pneumonia - concern for mass/obstruction ct chest noted - b/l effusions/consolidations- ct chest repeated 08/02/16 generally improved d/w cts medical management - lasix iv , aldactone i/o's, daily weights (2) Weight loss Status: Chronic Discussed With: Patient Problem Specific Plan: Monitor Clinically Problem Text: No clear etiology, possibly unintentional from poor PO intake. Continue to follow clinically as out pt (3) Weakness Status: Acute Discussed With: Patient Problem Specific Plan: Consult Specialist, Monitor Clinically Problem Text: PT/OT eval/treat- delayed based on protocol for anemia Did relatively well with PT 08/01/16 (no note yet 08/02/16)- still plan for skilled discharge Has thickened, long fungal toe nails which may be causing pain with ambulation- the patient's suggests that he minimizes his discomfort No available podiatry for this service (4) Alcohol abuse Status: Chronic Discussed With: Patient Problem Specific Plan: Monitor Clinically Problem Text: No s/s of withdrawal folic acid level not low, thiamine, MVI (5) Altered mental state Status: Resolved Discussed With: Patient Problem Specific Plan: Monitor Clinically Problem Text: likely metabolic encephalopathy. MRI brain appreciated. Subacute vermian infarct with lacunar infarct, small vessel ischemic disease. Neurology consultation appreciated. Aspirin and statin therapy. Mentation stable. (6) HTN (hypertension) Status: Chronic Discussed With: Patient Problem Specific Plan: Monitor Clinically Problem Text: Receiving beta dash plus lasix, aldactone. BB with hold parameters. (7) Dilated cardiomyopathy Status: Chronic Discussed With: Patient Problem Specific Plan: Monitor Clinically Problem Text: Likely secondary to alcohol abuse. Echo = systolic and diastolic dysfunction receiving BB, will consider ACEI when BP can tolerate. BP still soft as of 08/03/16 (8) Hyponatremia Status: Resolved Discussed With: Patient Problem Specific Plan: Repeat Labs (9) Sepsis Status: Resolved Problem Specific Plan: Monitor Clinically, Repeat Labs, Repeat Tests Problem Text: Sepsis on admission - hypothermic, leukopenia, bandemia - secondary to strep pneumo bacteremia complicated with strep pneumonia (10) TANESHA (acute kidney injury) Status: Resolved Discussed With: Patient Problem Specific Plan: Repeat Labs (11) Anemia Problem Text: Developing during stay but improving as of 08/03/16- Has blood in urine on 08/02/16, stool occult neg twice Does not appear iron deficient b12/folate not low peripheral smear suggests acute blood loss- follow trend Transfuse one unit of blood 07/31/16 No need for daily labs (12) Soft tissue mass Problem Text: superior lateral aspect of left eye- non tender, not warm us ordered old records from [facility] for biopsy result previously done Plan/VTE VTE Prophylaxis Ordered?: Yes (TEDs) Plan/Urinary Catheter Reason for insertion/continuin: Critical Pt monitoring Plan Diet: Continue Current Activity: Continue Current Therapy: PT, OT Diagnostics: Repeat Labs in AM Anticipated Discharge: [facility], I&O, 24H, [facility] Vital Signs/I&O Vital Signs Date Time Temp Pulse Resp B/P (MAP) Pulse Ox O2 Delivery O2 Flow Rate FiO2 08/05/16 14:00 98.8 90 18 131/63 (85) 95 Room Air I&O- Last 24 Hours up to 6 AM 08/05/16 05:59 Intake Total 1410 ml Output Total 2450 ml Balance -1040 ml Laboratory Data Microbiology Microbiology 08/02/16 Blood Culture - Preliminary, Resulted No Growth after 72 hours. All specime... 08/02/16 Blood Culture - Preliminary, Resulted No Growth after 72 hours. All specime... 07/29/16 Blood Culture - Final, Complete NO GROWTH AFTER 5 DAYS 07/29/16 Blood Culture - Final, Complete NO GROWTH AFTER 5 DAYS 08/05/16 Stool Occult Blood (NISREEN) - Final, Complete 07/30/16 Stool Occult Blood (NISREEN) - Final, Complete 08/02/16 Respiratory Virus Panel (PCR) (NISREEN) - Final, Complete NIECY PETERSEN MD August 05, 2016 20:39
[2016-08-05 22:00] VITALS: BP 129/66
[2016-08-06 06:00] VITALS: BP 110/63
[2016-08-06 07:00] LABS: MEAN CORPUSCULAR HEMOGLOBIN 31.1 pg (27.0-33.0); MEAN CORPUSCULAR HGB CONC 32.5 g/dl (32.0-36.5); MEAN CORPUSCULAR VOLUME 95.9 fl (80.0-96.0); RED CELL DISTRIBUTION WIDTH 14.9 % (11.5-14.5); WHITE BLOOD COUNT 12.1 K/mm3 (4.0-10.0)
[2016-08-06 07:11] LABS: ANION GAP 8 MEQ/L (8-16); BLOOD UREA NITROGEN 4 MG/DL (7-18); CALCIUM LEVEL 8.4 MG/DL (8.5-10.1); CARBON DIOXIDE LEVEL 24 MEQ/L (21-32); CHLORIDE LEVEL 101 MEQ/L (98-107); CREATININE FOR GFR 0.51 MG/DL (0.70-1.30); GLOMERULAR FILTRATION RATE > 60.0 (>56); GLUCOSE, FASTING 86 MG/DL (70-105); POTASSIUM SERUM 4.3 MEQ/L (3.5-5.1); SODIUM LEVEL 133 MEQ/L (136-145)
[2016-08-06] MEDS: THIAMINE 100 MG TAB PO SCH (09:36)
[2016-08-06] MEDS: MULTIVITAMINS/MINERALS THERAP 1 TAB PO SCH (09:36)
[2016-08-06] MEDS: DOCUSATE SODIUM 100 MG CAP PO SCH ×2 (09:36→20:48)
[2016-08-06] MEDS: METOPROLOL TART 12.5 MG PER 1/2 TAB PO SCH ×2 (09:36→20:48)
[2016-08-06] MEDS: FOLIC ACID 1 MG TAB PO SCH (09:36)
[2016-08-06] MEDS: ASPIRIN 325 MG TAB PO SCH (09:36)
[2016-08-06] MEDS: ATORVASTATIN 20 MG TAB PO SCH (09:36)
[2016-08-06] MEDS: SPIRONOLACTONE 12.5MG PER 1/2 TABLET PO SCH (09:37)
--- NOTE | 2016-08-06 09:56 | IPNPDOC ---
Subjective Date Seen The patient was seen on 08/06/16. Subjective Chief Complaint/HPI The patient is a 55-year-old male admitted with a reason for visit of Pneumonia. General: Denies: ROS Unobtainable, Chills, Night Sweats, Fatigue, Malaise, Normal Appetite, Other Symptoms Constitutional: Denies: Chills, Fever, Malaise, Night Sweats, Weakness, Fatigue , Weight Loss, Lethargy, Other Eyes: Denies: Pain, Vision change, Conjunctivae inflammation, Eyelid inflammation, Redness, Other ENT: Denies: Head Aches, Ear Pain, Dysphagia, Sinus Congestion, Post Nasal Drip , Sore Throat, Epistaxis, Other Symptoms Skin: Denies: Rash, Lesions, Jaundice, Bruising, Itching, Dry, Breakdown, Nail Changes, Other Pulmonary: Denies: Dyspnea, Cough, Pleuritic Chest Pain, Other Symptoms Cardiovascular: Denies: Chest Pain, Palpitations, Orthopnea, Paroxysmal Noc. Dyspnea, Edema, Lt Headedness, Other Symptoms Gastrointestinal: Denies: Nausea, Vomiting, Abdominal Pain, Diarrhea, Constipation, Melena, Hematochezia, Other Symptoms Genitourinary: Denies: Dysuria, Frequency, Incontinence, Hematuria, Retention, Other Symptoms Objective Physical Examination General Exam: Positive: Alert, Cooperative, No Acute Distress, Other ( dissheveled) Eye Exam: Positive: PERRLA, Other Eye Symptoms (1cm hordeolum left eye) ENT Exam: Positive: Atraumatic Chest Exam: Positive: Clear to auscultation, Diminished, Negative: Rhonchi, Wheezing Heart Exam: Positive: Rate Normal, Regular Rhythm, Normal S1, Normal S2 Abdomen Exam: Positive: Normal bowel sounds, Soft, Negative: Tenderness Extremity Exam: Positive: Other (Chronic Venous Stasis changes, dry skin noted in the lower extremities bilaterally), Negative: Edema Psych Exam: Positive: Oriented x 3 Assessment /Plan Problems (1) Pneumonia Status: Resolved Discussed With: Patient Problem Specific Plan: Monitor Clinically Problem Text: Strep pneumo bacteremia secondary to CAP Had recurrent fever 08/01/16- antibiotics discontinued on evening of 08/03/16 failed doxycycline with fevers Known pulmonary nodules - repeated pneumonia - concern for mass/obstruction ct chest noted - b/l effusions/consolidations- ct chest repeated 08/02/16 generally improved d/w cts -medical management - aldactone - i/o's, daily weights (2) Weight loss Status: Chronic Discussed With: Patient Problem Specific Plan: Monitor Clinically Problem Text: No clear etiology, possibly unintentional from poor PO intake. Continue to follow clinically as out pt (3) Weakness Status: Acute Response to Treatment: Improving Discussed With: Patient Problem Specific Plan: Consult Specialist, Monitor Clinically Problem Text: PT/OT eval/treat- functional status improving thickened, long fungal toe nails - not interfering with ambulation no available podiatry for this service (4) Alcohol abuse Status: Chronic Discussed With: Patient Problem Specific Plan: Monitor Clinically Problem Text: No s/s of withdrawal folic acid level not low, thiamine, MVI (5) Altered mental state Status: Resolved Discussed With: Patient Problem Specific Plan: Monitor Clinically Problem Text: likely metabolic encephalopathy. MRI brain appreciated. Subacute vermian infarct with lacunar infarct, small vessel ischemic disease. Neurology consultation appreciated. Aspirin and statin therapy. Mentation stable. (6) HTN (hypertension) Status: Chronic Discussed With: Patient Problem Specific Plan: Monitor Clinically Problem Text: Receiving beta dash plus lasix, aldactone. BB with hold parameters. (7) Dilated cardiomyopathy Status: Chronic Discussed With: Patient Problem Specific Plan: Monitor Clinically Problem Text: Likely secondary to alcohol abuse. Echo = systolic and diastolic dysfunction receiving BB, will consider ACEI when BP can tolerate. BP still soft as of 08/03/16 (8) Hyponatremia Status: Resolved Discussed With: Patient Problem Specific Plan: Repeat Labs (9) Sepsis Status: Resolved Problem Specific Plan: Monitor Clinically, Repeat Labs, Repeat Tests Problem Text: Sepsis on admission - hypothermic, leukopenia, bandemia - secondary to strep pneumo bacteremia complicated with strep pneumonia (10) TANESHA (acute kidney injury) Status: Resolved Discussed With: Patient Problem Specific Plan: Repeat Labs (11) Anemia Problem Text: Developing during stay but improving as of 08/03/16- Has blood in urine on 08/02/16, stool occult neg twice Does not appear iron deficient b12/folate not low peripheral smear suggests acute blood loss- follow trend Transfuse one unit of blood 07/31/16 No need for daily labs (12) Soft tissue mass Problem Text: superior lateral aspect of left eye- non tender, not warm us ordered old records from [facility] for biopsy result previously done Plan/VTE VTE Prophylaxis Ordered?: Yes (TEDs) Plan/Urinary Catheter Reason for insertion/continuin: Critical Pt monitoring (failed TOV) Plan Diet: Continue Current Activity: Continue Current Therapy: PT, OT Diagnostics: Repeat Labs in AM Anticipated Discharge: Sub Acute Rehab, Assisted Living, Alf Pending disposition. Functional status improving with PT. VS, I&O, 24H, Fishbone Vital Signs/I&O Vital Signs Date Time Temp Pulse Resp B/P (MAP) Pulse Ox O2 Delivery O2 Flow Rate FiO2 08/06/16 09:36 88 104/60 08/06/16 06:00 99.7 17 93 Room Air I&O- Last 24 Hours up to 6 AM 08/06/16 06:00 Intake Total 3120 ml Output Total 2800 ml Balance 320 ml Laboratory Data 24H LABS Laboratory Tests 2 08/06/16 06:18: Anion Gap 8, Glomerular Filtration Rate > 60.0, Blood Urea Nitrogen 4L, Creatinine 0.51L, Sodium Level 133L, Potassium Level 4.3, Chloride Level 101, Carbon Dioxide Level 24, Calcium Level 8.4L CBC/BMP Laboratory Tests 08/06/16 06:18 Red Blood Count 2.91 L, Mean Corpuscular Volume 95.9, Mean Corpuscular Hemoglobin 31.1, Mean Corpuscular Hemoglobin Concent 32.5, Red Cell Distribution Width 14.9 H, Calcium Level 8.4 L Microbiology Microbiology 08/02/16 Blood Culture - Preliminary, Resulted No Growth after 72 hours. All specime... 08/02/16 Blood Culture - Preliminary, Resulted No Growth after 72 hours. All specime... 07/29/16 Blood Culture - Final, Complete NO GROWTH AFTER 5 DAYS 07/29/16 Blood Culture - Final, Complete NO GROWTH AFTER 5 DAYS 08/05/16 Stool Occult Blood (NISREEN) - Final, Complete 07/30/16 Stool Occult Blood (NISREEN) - Final, Complete 08/02/16 Respiratory Virus Panel (PCR) (NISREEN) - Final, Complete CINTHIA GARCIA MD August 06, 2016 09:56
--- NOTE | 2016-08-06 10:17 | REP ---
Soft-tissue head and neck ultrasound: History: Ultrasound evaluation of the mass superior to the left eye. The patient reports that this mass has been present for years and is not changing. Findings: Scanning over the soft tissue superior and lateral to the left eye along the superior orbital margin reveals two adjacent complex fluid containing lesions. The medial of these two measures 1.0 x 0.8 x 0.6 cm. The lateral lesion measures 1.9 x 1.4 x 2.2 cm. These lesions are partially compressible with probe pressure and echogenic floating debris with independent motion is seen within these lesions compatible with proteinaceous cystic contents. There are sharply circumscribed. There is some enhanced through transmission. Impression: Two adjacent oval-shaped hypoechoic lesions containing echogenic fluid. Sebaceous cyst versus other complex cystic lesion. Signed by Archie Turner MD 08/06/2016 12:24 P
[2016-08-06 14:00] VITALS: BP 120/72
[2016-08-06 20:42] VITALS: BP 120/68
[2016-08-06 22:00] VITALS: BP 123/62
[2016-08-07 06:00] VITALS: BP 136/78
[2016-08-07] MEDS: DOCUSATE SODIUM 100 MG CAP PO SCH ×2 (09:35→20:11)
[2016-08-07] MEDS: ATORVASTATIN 20 MG TAB PO SCH (09:35)
[2016-08-07] MEDS: MULTIVITAMINS/MINERALS THERAP 1 TAB PO SCH (09:35)
[2016-08-07] MEDS: FOLIC ACID 1 MG TAB PO SCH (09:35)
[2016-08-07] MEDS: THIAMINE 100 MG TAB PO SCH (09:35)
[2016-08-07] MEDS: ASPIRIN 325 MG TAB PO SCH (09:35)
[2016-08-07] MEDS: SPIRONOLACTONE 12.5MG PER 1/2 TABLET PO SCH (09:35)
[2016-08-07] MEDS: METOPROLOL TART 12.5 MG PER 1/2 TAB PO SCH ×2 (09:36→20:12)
--- NOTE | 2016-08-07 10:44 | IPNPDOC ---
Subjective Date Seen The patient was seen on 08/07/16. Subjective Chief Complaint/HPI The patient is a 55-year-old male admitted with a reason for visit of Pneumonia. General: Denies: ROS Unobtainable, Chills, Night Sweats, Fatigue, Malaise, Normal Appetite, Other Symptoms Constitutional: Denies: Chills, Fever, Malaise, Night Sweats, Weakness, Fatigue , Weight Loss, Lethargy, Other Eyes: Denies: Pain, Vision change, Conjunctivae inflammation, Eyelid inflammation, Redness, Other ENT: Denies: Head Aches, Ear Pain, Dysphagia, Sinus Congestion, Post Nasal Drip , Sore Throat, Epistaxis, Other Symptoms Skin: Denies: Rash, Lesions, Jaundice, Bruising, Itching, Dry, Breakdown, Nail Changes, Other Pulmonary: Denies: Dyspnea, Cough, Pleuritic Chest Pain, Other Symptoms Cardiovascular: Denies: Chest Pain, Palpitations, Orthopnea, Paroxysmal Noc. Dyspnea, Edema, Lt Headedness, Other Symptoms Gastrointestinal: Denies: Nausea, Vomiting, Abdominal Pain, Diarrhea, Constipation, Melena, Hematochezia, Other Symptoms Genitourinary: Denies: Dysuria, Frequency, Incontinence, Hematuria, Retention, Other Symptoms Objective Physical Examination General Exam: Positive: Alert, Cooperative, No Acute Distress, Other ( dissheveled) Eye Exam: Positive: PERRLA, Other Eye Symptoms (1cm cyst like mass above left eye) ENT Exam: Positive: Atraumatic Chest Exam: Positive: Clear to auscultation, Diminished, Negative: Rhonchi, Wheezing Heart Exam: Positive: Rate Normal, Regular Rhythm, Normal S1, Normal S2 Abdomen Exam: Positive: Normal bowel sounds, Soft, Negative: Tenderness Extremity Exam: Positive: Other (Chronic Venous Stasis changes, dry skin noted in the lower extremities bilaterally), Negative: Edema Psych Exam: Positive: Oriented x 3 Assessment /Plan Problems (1) Pneumonia Status: Resolved Discussed With: Patient Problem Specific Plan: Monitor Clinically Problem Text: Strep pneumo bacteremia secondary to CAP Had recurrent fever 08/01/16- antibiotics discontinued on evening of 08/03/16 failed doxycycline with fevers Known pulmonary nodules - repeated pneumonia - concern for mass/obstruction ct chest noted - b/l effusions/consolidations- ct chest repeated 08/02/16 generally improved d/w cts -medical management - aldactone - i/o's, daily weights (2) Weight loss Status: Chronic Discussed With: Patient Problem Specific Plan: Monitor Clinically Problem Text: No clear etiology, possibly unintentional from poor PO intake. Continue to follow clinically as out pt (3) Weakness Status: Acute Response to Treatment: Improving Discussed With: Patient Problem Specific Plan: Consult Specialist, Monitor Clinically Problem Text: PT/OT eval/treat- functional status improving thickened, long fungal toe nails - not interfering with ambulation no available podiatry for this service (4) Alcohol abuse Status: Chronic Discussed With: Patient Problem Specific Plan: Monitor Clinically Problem Text: No s/s of withdrawal folic acid level not low, thiamine, MVI (5) Altered mental state Status: Resolved Discussed With: Patient Problem Specific Plan: Monitor Clinically Problem Text: likely metabolic encephalopathy. MRI brain appreciated. Subacute vermian infarct with lacunar infarct, small vessel ischemic disease. Neurology consultation appreciated. Aspirin and statin therapy. Mentation stable. (6) HTN (hypertension) Status: Chronic Discussed With: Patient Problem Specific Plan: Monitor Clinically Problem Text: Receiving beta dash plus lasix, aldactone. BB with hold parameters. (7) Dilated cardiomyopathy Status: Chronic Discussed With: Patient Problem Specific Plan: Monitor Clinically Problem Text: Likely secondary to alcohol abuse. Echo = systolic and diastolic dysfunction receiving BB, will consider ACEI when BP can tolerate. BP still soft as of 08/03/16 (8) Hyponatremia Status: Resolved Discussed With: Patient Problem Specific Plan: Repeat Labs (9) Sepsis Status: Resolved Problem Specific Plan: Monitor Clinically, Repeat Labs, Repeat Tests Problem Text: Sepsis on admission - hypothermic, leukopenia, bandemia - secondary to strep pneumo bacteremia complicated with strep pneumonia (10) TANESHA (acute kidney injury) Status: Resolved Discussed With: Patient Problem Specific Plan: Repeat Labs (11) Anemia Problem Text: Developing during stay but improving as of 08/03/16- Has blood in urine on 08/02/16, stool occult neg twice Does not appear iron deficient b12/folate not low peripheral smear suggests acute blood loss- follow trend Transfuse one unit of blood 07/31/16 No need for daily labs (12) Soft tissue mass Problem Text: superior lateral aspect of left eye- non tender, not warm us ordered old records from [facility] for biopsy result previously done Plan/VTE VTE Prophylaxis Ordered?: Yes (TEDs) Plan/Urinary Catheter Urinary Catheter: D/C Connell Plan Diet: Continue Current Activity: Continue Current Therapy: PT, OT Diagnostics: Repeat Labs in AM Anticipated Discharge: Home With Services Has been doing well with PT. Anticipating discharge home when safe as per PT. Successfully passed trial of voiding - connell discontinued. PFS to follow up regarding home situation with his . VS, I&O, 24H, Fishbone Vital Signs/I&O Vital Signs Date Time Temp Pulse Resp B/P (MAP) Pulse Ox O2 Delivery O2 Flow Rate FiO2 08/07/16 09:36 85 130/78 08/07/16 08:00 Room Air 08/07/16 06:00 98.1 17 100 I&O- Last 24 Hours up to 6 AM 08/07/16 05:59 Intake Total 2040 ml Output Total 1875 ml Balance 165 ml Laboratory Data Microbiology Microbiology 08/02/16 Blood Culture - Final, Complete NO GROWTH AFTER 5 DAYS 08/02/16 Blood Culture - Final, Complete NO GROWTH AFTER 5 DAYS 07/29/16 Blood Culture - Final, Complete NO GROWTH AFTER 5 DAYS 07/29/16 Blood Culture - Final, Complete NO GROWTH AFTER 5 DAYS 08/05/16 Stool Occult Blood (NISREEN) - Final, Complete 07/30/16 Stool Occult Blood (NISREEN) - Final, Complete 08/02/16 Respiratory Virus Panel (PCR) (NISREEN) - Final, Complete CINTHIA GARCIA MD August 07, 2016 10:44
[2016-08-07 14:00] VITALS: BP 123/74
[2016-08-07 22:00] VITALS: BP 124/66
[2016-08-08 06:00] VITALS: BP 117/69
[2016-08-08] MEDS: FOLIC ACID 1 MG TAB PO SCH (08:46)
[2016-08-08] MEDS: METOPROLOL TART 12.5 MG PER 1/2 TAB PO SCH ×2 (08:46→20:33)
[2016-08-08] MEDS: ASPIRIN 325 MG TAB PO SCH (08:46)
[2016-08-08] MEDS: SPIRONOLACTONE 12.5MG PER 1/2 TABLET PO SCH (08:46)
[2016-08-08] MEDS: ATORVASTATIN 20 MG TAB PO SCH (08:46)
[2016-08-08] MEDS: DOCUSATE SODIUM 100 MG CAP PO SCH ×3 (08:46→20:33)
[2016-08-08] MEDS: MULTIVITAMINS/MINERALS THERAP 1 TAB PO SCH (08:46)
[2016-08-08] MEDS: THIAMINE 100 MG TAB PO SCH (08:46)
[2016-08-08] MEDS: ACETAMINOPHEN TAB 650MG DOSE (2X325MG) PO PRN (08:51)
--- NOTE | 2016-08-08 13:30 | IPNPDOC ---
Subjective Date Seen The patient was seen on 08/08/16. Subjective Chief Complaint/HPI The patient is a 55-year-old male admitted with a reason for visit of Pneumonia. General: Denies: ROS Unobtainable, Chills, Night Sweats, Fatigue, Malaise, Normal Appetite, Other Symptoms Constitutional: Denies: Chills, Fever, Malaise, Night Sweats, Weakness, Fatigue , Weight Loss, Lethargy, Other Eyes: Denies: Pain, Vision change, Conjunctivae inflammation, Eyelid inflammation, Redness, Other ENT: Denies: Head Aches, Ear Pain, Dysphagia, Sinus Congestion, Post Nasal Drip , Sore Throat, Epistaxis, Other Symptoms Skin: Denies: Rash, Lesions, Jaundice, Bruising, Itching, Dry, Breakdown, Nail Changes, Other Pulmonary: Denies: Dyspnea, Cough, Pleuritic Chest Pain, Other Symptoms Cardiovascular: Denies: Chest Pain, Palpitations, Orthopnea, Paroxysmal Noc. Dyspnea, Edema, Lt Headedness, Other Symptoms Gastrointestinal: Denies: Nausea, Vomiting, Abdominal Pain, Diarrhea, Constipation, Melena, Hematochezia, Other Symptoms Genitourinary: Denies: Dysuria, Frequency, Incontinence, Hematuria, Retention, Other Symptoms Objective Physical Examination General Exam: Positive: Alert, Cooperative, No Acute Distress, Other ( dissheveled) Eye Exam: Positive: PERRLA, Other Eye Symptoms (1cm cyst like mass above left eye) ENT Exam: Positive: Atraumatic Chest Exam: Positive: Clear to auscultation, Diminished, Negative: Rhonchi, Wheezing Heart Exam: Positive: Rate Normal, Regular Rhythm, Normal S1, Normal S2 Abdomen Exam: Positive: Normal bowel sounds, Soft, Negative: Tenderness Extremity Exam: Positive: Other (Chronic Venous Stasis changes, dry skin noted in the lower extremities bilaterally), Negative: Edema Psych Exam: Positive: Oriented x 3 Assessment /Plan Problems (1) Pneumonia Status: Resolved Discussed With: Patient Problem Specific Plan: Monitor Clinically Problem Text: Strep pneumo bacteremia secondary to CAP Had recurrent fever 08/01/16- antibiotics discontinued on evening of 08/03/16 failed doxycycline with fevers Known pulmonary nodules - repeated pneumonia - concern for mass/obstruction ct chest noted - b/l effusions/consolidations- ct chest repeated 08/02/16 generally improved d/w cts -medical management - aldactone - i/o's, daily weights (2) Weight loss Status: Chronic Discussed With: Patient Problem Specific Plan: Monitor Clinically Problem Text: No clear etiology, possibly unintentional from poor PO intake. Continue to follow clinically as out pt (3) Weakness Status: Acute Response to Treatment: Improving Discussed With: Patient Problem Specific Plan: Consult Specialist, Monitor Clinically Problem Text: PT/OT eval/treat- functional status improving thickened, long fungal toe nails - not interfering with ambulation no available podiatry for this service (4) Alcohol abuse Status: Chronic Discussed With: Patient Problem Specific Plan: Monitor Clinically Problem Text: No s/s of withdrawal folic acid level not low, thiamine, MVI (5) Altered mental state Status: Resolved Discussed With: Patient Problem Specific Plan: Monitor Clinically Problem Text: likely metabolic encephalopathy. MRI brain appreciated. Subacute vermian infarct with lacunar infarct, small vessel ischemic disease. Neurology consultation appreciated. Aspirin and statin therapy. Mentation stable. (6) HTN (hypertension) Status: Chronic Discussed With: Patient Problem Specific Plan: Monitor Clinically Problem Text: Receiving beta dash plus aldactone. BB frequently held due to hold parameters. (7) Dilated cardiomyopathy Status: Chronic Discussed With: Patient Problem Specific Plan: Monitor Clinically Problem Text: Likely secondary to alcohol abuse. Echo = systolic and diastolic dysfunction receiving BB, will consider ACEI when BP can tolerate. BP still soft as of 08/03/16 (8) Hyponatremia Status: Resolved Discussed With: Patient Problem Specific Plan: Repeat Labs (9) Sepsis Status: Resolved Problem Specific Plan: Monitor Clinically, Repeat Labs, Repeat Tests Problem Text: Sepsis on admission - hypothermic, leukopenia, bandemia - secondary to strep pneumo bacteremia complicated with strep pneumonia (10) TANESHA (acute kidney injury) Status: Resolved Discussed With: Patient Problem Specific Plan: Repeat Labs (11) Anemia Problem Text: Developing during stay but improving as of 08/03/16- Has blood in urine on 08/02/16, stool occult neg twice Does not appear iron deficient b12/folate not low peripheral smear suggests acute blood loss- follow trend Transfuse one unit of blood 07/31/16 No need for daily labs (12) Soft tissue mass Problem Text: superior lateral aspect of left eye- non tender, not warm us ordered old records from [facility] for biopsy result previously done Plan/VTE VTE Prophylaxis Ordered?: Yes (TEDs) Plan/Urinary Catheter Urinary Catheter: D/C Vazquez Plan Diet: Continue Current Activity: Continue Current Therapy: PT, OT Anticipated Discharge: Home With Services VS, I&O, 24H, Fishbone Vital Signs/I&O Vital Signs Date Time Temp Pulse Resp B/P (MAP) Pulse Ox O2 Delivery O2 Flow Rate FiO2 08/08/16 08:46 95 105/64 08/08/16 06:00 99.0 15 100 Room Air I&O- Last 24 Hours up to 6 AM 08/08/16 06:00 Intake Total 2620 ml Output Total 975 ml Balance 1645 ml Laboratory Data Microbiology Microbiology 08/02/16 Blood Culture - Final, Complete NO GROWTH AFTER 5 DAYS 08/02/16 Blood Culture - Final, Complete NO GROWTH AFTER 5 DAYS 07/29/16 Blood Culture - Final, Complete NO GROWTH AFTER 5 DAYS 07/29/16 Blood Culture - Final, Complete NO GROWTH AFTER 5 DAYS 08/05/16 Stool Occult Blood (NISREEN) - Final, Complete 07/30/16 Stool Occult Blood (NISREEN) - Final, Complete 08/02/16 Respiratory Virus Panel (PCR) (NISREEN) - Final, Complete CINTHIA GARCIA MD August 08, 2016 13:30
[2016-08-08 14:00] VITALS: BP 101/61
[2016-08-08 22:00] VITALS: BP 115/67
[2016-08-09 06:00] VITALS: BP 116/65
[2016-08-09 06:11] LABS: BASO # 0.1 K/mm3 (0.0-0.2); BASO % 0.8 % (0.0-1.0); EOS # 0.4 K/mm3 (0.0-0.50); EOS % 2.7 % (0.0-3.0); LARGE UNSTAINED CELL # 0.3 K/mm3 (0.0-0.4); LARGE UNSTAINED CELL % 2.4 % (0.0-4.0); LYMPH # 1.3 K/mm3 (1.5-4.5); LYMPH % 10.3 % (24.0-44.0); MEAN CORPUSCULAR HEMOGLOBIN 31.1 pg (27.0-33.0); MEAN CORPUSCULAR HGB CONC 31.4 g/dl (32.0-36.5); MEAN CORPUSCULAR VOLUME 98.9 fl (80.0-96.0); MONO # 0.7 K/mm3 (0.0-0.8); MONO % 5.6 % (0.0-5.0); NEUTROPHILS % 78.2 % (36.0-66.0); PLATELET COUNT, AUTOMATED 469 k/mm3 (150-450); RED CELL DISTRIBUTION WIDTH 14.3 % (11.5-14.5); WHITE BLOOD COUNT 12.8 K/mm3 (4.0-10.0)
[2016-08-09 06:30] LABS: ALBUMIN 2.1 GM/DL (3.2-5.2); ALBUMIN/GLOBULIN RATIO 0.44 (1.00-1.93); ALKALINE PHOSPHATASE 137 U/L (45-117); ALT/SGPT 41 U/L (12-78); ANION GAP 7 MEQ/L (8-16); AST/SGOT 33 U/L (15-37); BILIRUBIN,TOTAL 0.4 MG/DL (0.2-1.0); BLOOD UREA NITROGEN 6 MG/DL (7-18); CALCIUM LEVEL 8.1 MG/DL (8.5-10.1); CARBON DIOXIDE LEVEL 24 MEQ/L (21-32); CHLORIDE LEVEL 102 MEQ/L (98-107); CREATININE FOR GFR 0.51 MG/DL (0.70-1.30); GLOMERULAR FILTRATION RATE > 60.0 (>56); GLUCOSE, FASTING 103 MG/DL (70-105); SODIUM LEVEL 133 MEQ/L (136-145); TOTAL PROTEIN 6.9 GM/DL (6.4-8.2)
[2016-08-09] MEDS: ACETAMINOPHEN TAB 650MG DOSE (2X325MG) PO PRN (06:45)
[2016-08-09] MEDS: FOLIC ACID 1 MG TAB PO SCH (10:20)
[2016-08-09] MEDS: SPIRONOLACTONE 12.5MG PER 1/2 TABLET PO SCH (10:20)
[2016-08-09] MEDS: ASPIRIN 325 MG TAB PO SCH (10:20)
[2016-08-09] MEDS: THIAMINE 100 MG TAB PO SCH (10:20)
[2016-08-09 10:21] VITALS: BP 128/63
[2016-08-09] MEDS: DOCUSATE SODIUM 100 MG CAP PO SCH (10:21)
[2016-08-09] MEDS: METOPROLOL TART 12.5 MG PER 1/2 TAB PO SCH (10:21)
[2016-08-09] MEDS: ATORVASTATIN 20 MG TAB PO SCH (10:21)
[2016-08-09] MEDS: MULTIVITAMINS/MINERALS THERAP 1 TAB PO SCH (10:21)
[2016-08-09] MEDS ORDERED: SPIR25TA2 PO (10:34)
[2016-08-09] MEDS ORDERED: THIA100TA PO (10:34)
[2016-08-09] MEDS ORDERED: METO-346 PO (10:34)
[2016-08-09] MEDS ORDERED: ASPI325T PO (10:34)
[2016-08-09] MEDS ORDERED: ATOR1TAB21 PO (10:34)
[2016-08-09] MEDS ORDERED: VITMTA PO (10:34)
[2016-08-09] MEDS ORDERED: FOLI1TAB2 PO (10:34)
--- NOTE | 2016-08-09 11:17 | DS.PDOC ---
Discharge Summary General Date of Admission Jul 14, 2016 at 19:42 Date of Discharge 08/09/16 Specialist/Consultants Involve: LUCITA BLOUNT MD Discharge Summary PROCEDURES PERFORMED DURING STAY: [None]. DISCHARGE DIAGNOSES: 1. History of hypertension - blood pressures mostly low/normal during hospital stay. 2. Dilated cardiomyopathy - likely secondary to alcohol abuse. 3. anemia. 4. acute kidney injury - resolved 5. hyponatremia - resolved 6. pneumonia - strep pneumo 7. pleural effusions 8. bacteremia 9. weight loss 10. alcohol abuse 11. congestive heart failure - diastolic and systolic dysfunction - cannot tolerate ACEI d/t low blood pressure 12. metabolic encephalopathy - resolved 13. bacteremia - strep pneumo 14. 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 pulmonary nodules 16. nicotine abuse COMPLICATIONS/CHIEF COMPLAINT: Pneumonia. HOSPITAL COURSE: 55 yo male presented for worsening shortness of breath, weakness and lethargy with unintentional 30 pound weight loss over past several months. Patient was confused and poor historian on arrival. Most of history obtained by , who also noted worsening cough productive of clear to yellow sputum. Patient admitted for volume overload which responded well to aggressive diuresis with lasix and aldactone. CT chest noted significant bilateral pleural effusions. Patient also noted to be bacteremic with pneumonia. Sputum and blood cultures positive for strep pneumoniae. Patient completed course of antibiotics , which were extended due to intermittent fevers. Neurology consulted for altered mental status, and MRI finding of sub acute vermian infarct with lacunar infarct, treated with statin and aspirin therapy. AMS secondary to metabolic encephalopathy which also resolved. Hospital stay significant for dysphagia, which also resolved, and was secondary to metabolic encephalopathy. Patient returned to baseline mentation. Unintentional weight loss likely secondary to poor nutrition, and was assessed by dietary services. Patient did very well with PT deemed safe for discharge. DISCHARGE MEDICATIONS: Please see below. ALLERGIES: Please see below. PHYSICAL EXAMINATION ON DISCHARGE: VITAL SIGNS: Please see below. GENERAL: NAD HEENT: NC/AT, EOMI, PERRL NECK: supple CARDIOVASCULAR EXAMINATION: +S1S2, RRR RESPIRATORY EXAMINATION: CTA B/L ABDOMINAL EXAMINATION: soft, NT, +BS EXTREMITIES: no edema, chronic venous stasis changes PSYCHIATRIC EXAMINATION: AAOx3 LABORATORY DATA: Please see below. IMAGING: PROGNOSIS: ACTIVITY: [As tolerated]. DIET: high calorie, high protein DISPOSITION: Discharge home vs home with services DISCHARGE INSTRUCTIONS: 1. Follow up PCP as scheduled 2. Medications as directed. ITEMS TO FOLLOWUP ON ON OUTPATIENT: 1. Recommend follow up pulmonary nodules. 2. Recommend further eval for weight loss including colonoscopy. DISCHARGE CONDITION: [Stable]. TIME SPENT ON DISCHARGE: Greater than 30 minutes. Vital Signs/I&Os Vital Signs Date Time Temp Pulse Resp B/P (MAP) Pulse Ox O2 Delivery O2 Flow Rate FiO2 08/09/16 10:21 86 128/63 08/09/16 06:00 98.4 18 99 Room Air I&O- Last 24 Hours up to 6 AM 08/09/16 06:00 Intake Total 2040 ml Output Total 1075 ml Balance 965 ml Laboratory Data Labs 24H Laboratory Tests 2 08/09/16 05:23: White Blood Count 12.8H, Red Blood Count 3.05L, Hemoglobin 9.5L, Hematocrit 30.2L, Mean Corpuscular Volume 98.9H, Mean Corpuscular Hemoglobin 31.1, Mean Corpuscular Hemoglobin Concent 31.4L, Red Cell Distribution Width 14.3, Platelet Count 469H, Neutrophils (%) (Auto) 78.2H, Lymphocytes (%) (Auto) 10.3L , Monocytes (%) (Auto) 5.6H, Eosinophils (%) (Auto) 2.7, Basophils (%) (Auto) 0.8, Neutrophils # (Auto) 10.0H, Lymphocytes # (Auto) 1.3L, Monocytes # (Auto) 0.7, Eosinophils # (Auto) 0.4, Basophils # (Auto) 0.1, Large Unclassified Cells % 2.4, Large Unclassified Cells # 0.3, Anion Gap 7L, Glomerular Filtration Rate > 60.0, Blood Urea Nitrogen 6L, Creatinine 0.51L, Sodium Level 133L, Potassium Level 4.0, Chloride Level 102, Carbon Dioxide Level 24, Calcium Level 8.1L, Aspartate Amino Transf (AST/SGOT) 33, Alanine Aminotransferase (ALT/SGPT) 41, Alkaline Phosphatase 137H, Total Bilirubin 0.4, Total Protein 6.9, Albumin 2.1L , Albumin/Globulin Ratio 0.44L CBC/BMP Laboratory Tests 08/09/16 05:23 Red Blood Count 3.05 L, Mean Corpuscular Volume 98.9 H, Mean Corpuscular Hemoglobin 31.1, Mean Corpuscular Hemoglobin Concent 31.4 L, Red Cell Distribution Width 14.3, Neutrophils (%) (Auto) 78.2 H, Lymphocytes (%) (Auto) 10.3 L, Monocytes (%) (Auto) 5.6 H, Eosinophils (%) (Auto) 2.7, Basophils (%) ( Auto) 0.8, Neutrophils # (Auto) 10.0 H, Lymphocytes # (Auto) 1.3 L, Monocytes # (Auto) 0.7, Eosinophils # (Auto) 0.4, Basophils # (Auto) 0.1, Calcium Level 8.1 L, Aspartate Amino Transf (AST/SGOT) 33, Alanine Aminotransferase (ALT/SGPT) 41 , Alkaline Phosphatase 137 H, Total Bilirubin 0.4, Total Protein 6.9, Albumin 2.1 L Microbiology Microbiology 08/02/16 Blood Culture - Final, Complete NO GROWTH AFTER 5 DAYS 08/02/16 Blood Culture - Final, Complete NO GROWTH AFTER 5 DAYS 08/05/16 Stool Occult Blood (NISREEN) - Final, Complete 07/30/16 Stool Occult Blood (NISREEN) - Final, Complete 08/02/16 Respiratory Virus Panel (PCR) (NISREEN) - Final, Complete Discharge Medications Scheduled Aspirin (Aspirin) 325 Mg Tab, 325 MG PO DAILY Atorvastatin Calcium (Atorvastatin Calcium) 20 Mg Tab, 40 MG PO DAILY Folic Acid (Folic Acid) 1 Mg Tab, 1 MG PO DAILY Metoprolol Tartrate (Metoprolol Tartrate) 12.5 Mg Halftab, 12.5 MG PO QHS Multivitamins *[facility] STOCKED* (Thera M Plus *[facility] STOCK[facility]*) 1 Tab Tab, 1 TAB PO DAILY Spironolactone (Spironolactone) 25 Mg Tab, 12.5 MG PO DAILY Thiamine Hcl (Thiamine Hcl) 100 Mg Tab, 100 MG PO DAILY Scheduled PRN Ibuprofen (Advil) 200 Mg Tab, 400 MG PO PRN PRN for PAIN, (Reported) Allergies Coded Allergies: No Known Allergies (Verified Allergy, Unknown, 05/25/10) CINTHIA GARCIA MD August 09, 2016 11:17
[2016-08-09 14:00] VITALS: BP 122/65
== END 2016-08-09 16:01 | disposition home or self-care (01) | DRG 720 ==
LOC: M ED 15:30 → M ED INP 19:42 → M PCU 21:12 → M MSPAV 07-19 10:57 → M PCU 07-26 12:53 → M MSPAV 08-01 10:55 → M ED INP 08-09 02:49 → M MSPAV 08-09 02:50
PROVIDERS: ADMIT Internal Medicine; ATTEND Internal Medicine
PROC: 30233N1 Transfusion of Nonautologous Red Blood Cells into Peripheral Vein, Percutaneous Approach (ICD-10-PCS; principal; 2016-07-31)
DX: A41.9 Sepsis, unspecified organism (principal); I63.9 Cerebral infarction, unspecified; J96.01 Acute respiratory failure with hypoxia; G93.41 Metabolic encephalopathy; J90 Pleural effusion, not elsewhere classified; N17.9 Acute kidney failure, unspecified; D61.818 Other pancytopenia; J13 Pneumonia due to Streptococcus pneumoniae; E87.2 Acidosis; I42.0 Dilated cardiomyopathy; I50.40 Unspecified combined systolic (congestive) and diastolic (congestive) heart failure; F10.27 Alcohol dependence with alcohol-induced persisting dementia; I11.0 Hypertensive heart disease with heart failure; J44.9 Chronic obstructive pulmonary disease, unspecified; E87.1 Hypo-osmolality and hyponatremia; E83.42 Hypomagnesemia; R22.0 Localized swelling, mass and lump, head; F17.210 Nicotine dependence, cigarettes, uncomplicated; R63.4 Abnormal weight loss; R91.8 Other nonspecific abnormal finding of lung field; Z91.19 Patient's noncompliance with other medical treatment and regimen; Z79.899 Other long term (current) drug therapy; B95.3 Streptococcus pneumoniae as the cause of diseases classified elsewhere

== ENCOUNTER → 2016-09-20 | Outpatient (REF) | payer BC ==
[~2016-09-20] MED LIST changes: +ADVI200T PO; +ASPI325T PO; +ATOR1TAB21 PO; +FOLI1TAB4 PO; +METO-346 PO; +SPIR25TA2 PO; +THIA100TA PO; +VITMTA PO
[2016-09-20 12:57] LABS: BASO # 0.1 K/mm3 (0.0-0.2); BASO % 1.3 % (0.0-1.0); EOS # 0.2 K/mm3 (0.0-0.50); EOS % 2.8 % (0.0-3.0); LARGE UNSTAINED CELL # 0.2 K/mm3 (0.0-0.4); LARGE UNSTAINED CELL % 1.8 % (0.0-4.0); LYMPH # 1.5 K/mm3 (1.5-4.5); MEAN CORPUSCULAR HEMOGLOBIN 31.3 pg (27.0-33.0); MEAN CORPUSCULAR HGB CONC 32.9 g/dl (32.0-36.5); MEAN CORPUSCULAR VOLUME 95.4 fl (80.0-96.0); MONO # 0.5 K/mm3 (0.0-0.8); MONO % 5.5 % (0.0-5.0); NEUTROPHILS # 6.2 K/mm3 (1.8-7.7); NEUTROPHILS % 71.6 % (36.0-66.0); PLATELET COUNT, AUTOMATED 262 k/mm3 (150-450); RED CELL DISTRIBUTION WIDTH 14.9 % (11.5-14.5); WHITE BLOOD COUNT 8.7 K/mm3 (4.0-10.0)
[2016-09-20 14:41] LABS: ALBUMIN 3.4 GM/DL (3.2-5.2); ALBUMIN/GLOBULIN RATIO 0.74 (1.00-1.93); ALKALINE PHOSPHATASE 132 U/L (45-117); ALT/SGPT 14 U/L (12-78); ANION GAP 9 MEQ/L (8-16); AST/SGOT 11 U/L (15-37); BILIRUBIN,TOTAL 0.8 MG/DL (0.2-1.0); BLOOD UREA NITROGEN 4 MG/DL (7-18); CALCIUM LEVEL 9.9 MG/DL (8.5-10.1); CARBON DIOXIDE LEVEL 24 MEQ/L (21-32); CHLORIDE LEVEL 103 MEQ/L (98-107); CREATININE FOR GFR 0.62 MG/DL (0.70-1.30); FREE T4 0.98 NG/DL (0.76-1.46); GLOMERULAR FILTRATION RATE > 60.0 (>56); GLUCOSE, FASTING 85 MG/DL (70-105); POTASSIUM SERUM 4.9 MEQ/L (3.5-5.1); SODIUM LEVEL 136 MEQ/L (136-145)
[2016-09-21 14:12] LABS: PSA TOTAL 2.3 ng/mL (0.0-4.0)
== END ==
LOC: M LABDRAW1 11:26
PROVIDERS: ATTEND Physician Assistant
DX: E88.09 Other disorders of plasma-protein metabolism, not elsewhere classified (principal); R32 Unspecified urinary incontinence; I10 Essential (primary) hypertension

== ENCOUNTER → 2016-09-20 | Outpatient (REF) | payer BC | LOC: M LABDRAW1 11:28 | PROVIDERS: ATTEND Urology | DX: Z12.5 Encounter for screening for malignant neoplasm of prostate (principal) ==

== ENCOUNTER → 2016-10-08 | Outpatient (REF) | payer BC | LOC: M SMT 15:32 | PROVIDERS: ATTEND Urology | DX: N40.1 Benign prostatic hyperplasia with lower urinary tract symptoms (principal) ==

== ENCOUNTER → 2017-04-09 | Outpatient (CLI) | payer BC | LOC: M RAD 12:41 | DX: R09.89 Other specified symptoms and signs involving the circulatory and respiratory systems (principal) | CPT/HCPCS: 93880 ==

== ENCOUNTER 2017-05-08 08:26 | Day surgery (SDC) | payer BC ==
[2017-05-08] MEDS: NS 1,000 ML IV (08:45)
[2017-05-08] MEDS ORDERED: PROPOFOL 200 MG/20 ML VIAL As Ordered (10:32)
[2017-05-08] MEDS ORDERED: LIDOCAINE 2% INJ 100 MG/5 ML SDV (FOR ANES.) As Ordered (10:32)
== END 2017-05-08 10:57 | disposition home or self-care (01) ==
LOC: M OPP 08:26
DX: Z12.11 Encounter for screening for malignant neoplasm of colon (principal); I10 Essential (primary) hypertension; E78.5 Hyperlipidemia, unspecified; I65.23 Occlusion and stenosis of bilateral carotid arteries; M19.90 Unspecified osteoarthritis, unspecified site; Z87.09 Personal history of other diseases of the respiratory system; M54.5 Low back pain; Z86.73 Personal history of transient ischemic attack (TIA), and cerebral infarction without residual deficits; J44.9 Chronic obstructive pulmonary disease, unspecified; S31.809A Unspecified open wound of unspecified buttock, initial encounter; F17.210 Nicotine dependence, cigarettes, uncomplicated; Z79.899 Other long term (current) drug therapy
CPT/HCPCS: G0121

== ENCOUNTER → 2017-10-13 | Outpatient (CLI) | payer BC ==
[2017-10-13 13:33] LABS: BASO # 0.1 10^3/uL (0.0-0.2); BASO % 1.1 % (0.0-1.0); EOS # 0.2 10^3/uL (0.0-0.50); EOS % 2.3 % (0.0-3.0); HEMATOCRIT 39.8 % (42.0-52.0); HEMOGLOBIN 13.1 g/dl (13.5-17.5); IMMATURE GRANULOCYTE % 0.4 % (0-3.0); LYMPH % 27.7 % (24.0-44.0); MEAN CORPUSCULAR HEMOGLOBIN 32.9 pg (27.0-33.0); MEAN CORPUSCULAR HGB CONC 32.9 g/dl (32.0-36.5); MONO # 0.5 10^3/uL (0.0-0.8); MONO % 6.5 % (0.0-5.0); NEUTROPHILS # 4.4 10^3/uL (1.8-7.7); PLATELET COUNT, AUTOMATED 183 10^3/uL (150-450); RED BLOOD COUNT 3.98 10^6/uL (4.30-6.10); RED CELL DISTRIBUTION WIDTH 13.6 % (11.5-14.5); WHITE BLOOD COUNT 7.1 10^3/uL (4.0-10.0)
[2017-10-13 13:46] LABS: ALBUMIN 3.7 GM/DL (3.2-5.2); ALBUMIN/GLOBULIN RATIO 1.09 (1.00-1.93); ALKALINE PHOSPHATASE 109 U/L (45-117); ALT/SGPT 27 U/L (12-78); ANION GAP 8 MEQ/L (8-16); AST/SGOT 15 U/L (7-37); BILIRUBIN,TOTAL 0.7 MG/DL (0.2-1.0); BLOOD UREA NITROGEN 5 MG/DL (7-18); CALCIUM LEVEL 8.6 MG/DL (8.5-10.1); CARBON DIOXIDE LEVEL 26 MEQ/L (21-32); CHLORIDE LEVEL 106 MEQ/L (98-107); CHOLESTEROL LEVEL 74 MG/DL (<200); CHOLESTEROL RISK RATIO 1.608 (<5); CREATININE FOR GFR 0.68 MG/DL (0.70-1.30); GLOMERULAR FILTRATION RATE > 60.0 (>56); GLUCOSE, FASTING 95 MG/DL (70-100); HDL CHOLESTEROL 46 MG/DL (>40); LDL CHOLESTEROL 18.2 MG/DL (<100); NON-HDL-C 28 MG/DL; POTASSIUM SERUM 4.4 MEQ/L (3.5-5.1); SODIUM LEVEL 140 MEQ/L (136-145); TOTAL PROTEIN 7.1 GM/DL (6.4-8.2); TRIGLYCERIDES LEVEL 49 MG/DL (<150)
[2017-10-13 14:02] LABS: FOLATE 23.5 NG/ML; VITAMIN B12 LEVEL 746 PG/ML
== END ==
LOC: M SMT 09:23
DX: F10.21 Alcohol dependence, in remission (principal); I10 Essential (primary) hypertension
CPT/HCPCS: 82746

== ENCOUNTER → 2018-08-13 | Outpatient (CLI) | payer BC ==
[~2018-08-13] MED LIST changes: +ASPI-1 PO; -ASPI325T PO; +FOLI1TAB11 PO; -FOLI1TAB4 PO; +OXYB10TA; +SPIR-10 PO; -SPIR25TA2 PO; +THERTAB20
[2018-08-13 18:12] LABS: BASO # 0.1 10^3/uL (0.0-0.2); BASO % 1.2 % (0.0-1.0); EOS # 0.1 10^3/uL (0.0-0.50); EOS % 1.6 % (0.0-3.0); LYMPH # 2.3 10^3/uL (1.5-4.5); LYMPH % 33.2 % (24.0-44.0); MEAN CORPUSCULAR HEMOGLOBIN 32.6 pg (27.0-33.0); MEAN CORPUSCULAR HGB CONC 32.6 g/dl (32.0-36.5); MONO # 0.7 10^3/uL (0.0-0.8); MONO % 9.6 % (0.0-5.0); NEUTROPHILS # 3.8 10^3/uL (1.8-7.7); NEUTROPHILS % 54.1 % (36.0-66.0); PLATELET COUNT, AUTOMATED 183 10^3/uL (150-450)
[2018-08-13 18:23] LABS: ALBUMIN 4.1 GM/DL (3.2-5.2); ALT/SGPT 16 U/L (12-78); BILIRUBIN,TOTAL 0.8 MG/DL (0.2-1.0); BLOOD UREA NITROGEN 7 MG/DL (7-18); CALCIUM LEVEL 9.1 MG/DL (8.5-10.1); CARBON DIOXIDE LEVEL 25 MEQ/L (21-32); CHLORIDE LEVEL 106 MEQ/L (98-107); CHOLESTEROL LEVEL 97 MG/DL (<200); CHOLESTEROL RISK RATIO 2.255 (<5); CREATININE FOR GFR 0.84 MG/DL (0.70-1.30); GLOMERULAR FILTRATION RATE > 60.0 (>56); GLUCOSE, FASTING 89 MG/DL (70-100); HDL CHOLESTEROL 43 MG/DL (>40); LDL CHOLESTEROL 39 MG/DL (<100); NON-HDL-C 54 MG/DL; POTASSIUM SERUM 4.4 MEQ/L (3.5-5.1); SODIUM LEVEL 138 MEQ/L (136-145); TRIGLYCERIDES LEVEL 76 MG/DL (<150)
== END ==
LOC: M SMT 13:01
PROVIDERS: ATTEND Family Medicine
DX: I10 Essential (primary) hypertension (principal); Z86.73 Personal history of transient ischemic attack (TIA), and cerebral infarction without residual deficits

== ENCOUNTER → 2019-09-22 | Outpatient (CLI) | payer BC ==
[~2019-09-22] MED LIST changes: -OXYB10TA; +OXYB10TA23
[2019-09-22 16:22] LABS: BASO # 0.1 10^3/uL (0.0-0.2); BASO % 1.2 % (0.0-1.0); EOS # 0.1 10^3/uL (0.0-0.5); EOS % 1.9 % (0.0-3.0); HEMATOCRIT 43.5 % (42.0-52.0); LYMPH # 2.4 10^3/uL (1.5-5.0); LYMPH % 42.1 % (24.0-44.0); MEAN CORPUSCULAR HEMOGLOBIN 31.5 pg (27.0-33.0); MEAN CORPUSCULAR HGB CONC 32.2 g/dl (32.0-36.5); MONO # 0.5 10^3/uL (0.0-0.8); MONO % 8.5 % (0.0-5.0); NEUTROPHILS # 2.7 10^3/uL (1.5-8.5); NEUTROPHILS % 46.1 % (36.0-66.0); PLATELET COUNT, AUTOMATED 171 10^3/uL (150-450); RED BLOOD COUNT 4.44 10^6/uL (4.30-6.10); WHITE BLOOD COUNT 5.8 10^3/uL (4.0-10.0)
[2019-09-22 16:56] LABS: ALBUMIN 3.7 GM/DL (3.2-5.2); ALT/SGPT 15 U/L (12-78); BILIRUBIN,TOTAL 0.7 MG/DL (0.2-1.0); BLOOD UREA NITROGEN 5 MG/DL (7-18); CALCIUM LEVEL 8.9 MG/DL (8.8-10.2); CARBON DIOXIDE LEVEL 25 MEQ/L (21-32); CHLORIDE LEVEL 105 MEQ/L (98-107); CHOLESTEROL LEVEL 92 MG/DL (<200); CHOLESTEROL RISK RATIO 2.705 (<5); CREATININE FOR GFR 0.89 MG/DL (0.70-1.30); FREE T4 1.08 NG/DL (0.76-1.46); GLOMERULAR FILTRATION RATE > 60.0 (>49); GLUCOSE, FASTING 98 MG/DL (70-100); HDL CHOLESTEROL 34 MG/DL (>40); LDL CHOLESTEROL 46 MG/DL (<100); NON-HDL-C 58 MG/DL; POTASSIUM SERUM 4.1 MEQ/L (3.5-5.1); SODIUM LEVEL 134 MEQ/L (136-145); TOTAL PROTEIN 7.5 GM/DL (6.4-8.2); TRIGLYCERIDES LEVEL 60 MG/DL (<150)
== END ==
LOC: M LAB 15:38
PROVIDERS: ATTEND Family Medicine
DX: E78.5 Hyperlipidemia, unspecified (principal); Z13.29 Encounter for screening for other suspected endocrine disorder; Z13.0 Encounter for screening for diseases of the blood and blood-forming organs and certain disorders involving the immune mechanism; Z12.5 Encounter for screening for malignant neoplasm of prostate
CPT/HCPCS: 36415; 80053; 80061; 84439; 84443; 85025; G0103

== ENCOUNTER → 2020-08-11 | Outpatient (CLI) | payer BC ==
[~2020-08-11] MED LIST changes: -THERTAB20; +THERTAB21
[2020-08-11 11:48] LABS: BASO # 0.1 10^3/uL (0.0-0.2); BASO % 1.2 % (0.0-1.0); EOS # 0.1 10^3/uL (0.0-0.5); EOS % 1.8 % (0.0-3.0); HEMATOCRIT 41.8 % (42.0-52.0); HEMOGLOBIN 13.2 g/dl (13.5-17.5); LYMPH # 2.1 10^3/uL (1.5-5.0); LYMPH % 31.5 % (24.0-44.0); MEAN CORPUSCULAR HEMOGLOBIN 31.7 pg (27.0-33.0); MEAN CORPUSCULAR HGB CONC 31.6 g/dl (32.0-36.5); MEAN CORPUSCULAR VOLUME 100.2 fl (80.0-96.0); MONO # 0.6 10^3/uL (0.0-0.8); MONO % 9.3 % (2.0-8.0); NEUTROPHILS # 3.7 10^3/uL (1.5-8.5); NEUTROPHILS % 55.9 % (36.0-66.0); PLATELET COUNT, AUTOMATED 162 10^3/uL (150-450); RED BLOOD COUNT 4.17 10^6/uL (4.30-6.10); WHITE BLOOD COUNT 6.6 10^3/uL (4.0-10.0)
[2020-08-11 12:26] LABS: ALBUMIN 3.7 GM/DL (3.2-5.2); ALT/SGPT 12 U/L (12-78); BILIRUBIN,TOTAL 0.7 MG/DL (0.2-1.0); BLOOD UREA NITROGEN 7 MG/DL (7-18); CALCIUM LEVEL 8.7 MG/DL (8.8-10.2); CARBON DIOXIDE LEVEL 27 MEQ/L (21-32); CHLORIDE LEVEL 107 MEQ/L (98-107); CHOLESTEROL LEVEL 93 MG/DL (<200); CHOLESTEROL RISK RATIO 2.447 (<5); CREATININE FOR GFR 0.87 MG/DL (0.70-1.30); FREE T4 1.04 NG/DL (0.76-1.46); GLOMERULAR FILTRATION RATE > 60.0 (>49); GLUCOSE, FASTING 91 MG/DL (70-100); HDL CHOLESTEROL 38 MG/DL (>40); LDL CHOLESTEROL 41 MG/DL (<100); NON-HDL-C 55 MG/DL; POTASSIUM SERUM 4.2 MEQ/L (3.5-5.1); SODIUM LEVEL 139 MEQ/L (136-145); TOTAL PROTEIN 6.9 GM/DL (6.4-8.2); TRIGLYCERIDES LEVEL 72 MG/DL (<150)
== END ==
LOC: M LAB 10:38
PROVIDERS: ATTEND Family Medicine
DX: I10 Essential (primary) hypertension (principal)
CPT/HCPCS: 36415; 80053; 80061; 84439; 84443; 85025; G0103

== ENCOUNTER → 2020-12-14 | Outpatient (CLI) | payer BC ==
[2020-12-14 15:05] LABS: BASO # 0.1 10^3/uL (0.0-0.2); BASO % 1.2 % (0.0-1.0); EOS # 0.1 10^3/uL (0.0-0.5); EOS % 1.7 % (0.0-3.0); HEMATOCRIT 40.9 % (42.0-52.0); HEMOGLOBIN 13.4 g/dl (13.5-17.5); LYMPH # 2.6 10^3/uL (1.5-5.0); LYMPH % 33.8 % (24.0-44.0); MEAN CORPUSCULAR HEMOGLOBIN 32.5 pg (27.0-33.0); MEAN CORPUSCULAR HGB CONC 32.8 g/dl (32.0-36.5); MEAN CORPUSCULAR VOLUME 99.3 fl (80.0-96.0); MONO # 0.6 10^3/uL (0.0-0.8); MONO % 7.2 % (2.0-8.0); NEUTROPHILS # 4.3 10^3/uL (1.5-8.5); NEUTROPHILS % 55.8 % (36.0-66.0); PLATELET COUNT, AUTOMATED 185 10^3/uL (150-450); RED BLOOD COUNT 4.12 10^6/uL (4.30-6.10); WHITE BLOOD COUNT 7.7 10^3/uL (4.0-10.0)
[2020-12-14 15:45] LABS: FOLATE 21.3 NG/ML
== END ==
LOC: M LAB 13:53
PROVIDERS: ATTEND Physician Assistant
DX: D64.9 Anemia, unspecified (principal)

== ENCOUNTER → 2020-12-22 | Outpatient (CLI) | payer BC ==
--- NOTE | 2020-12-22 15:07 | REP ---
INDICATION: Assess stenosis TECHNIQUE: Carotid ultrasonography was performed bilaterally FINDINGS: Right: CCA systolic: 80.8 centimeters/second CCA diastolic: 18.6 centimeters/second ICA systolic: 102.0 centimeters/second ICA diastolic: 24.9 centimeters/second ICA CCA ratio: 1.26 Left: CCA systolic: 91.3 centimeters/second CCA diastolic: 15.5 centimeters/second ICA systolic: 136.0 centimeters/second ICA diastolic: 33.7 centimeters/second ICA CCA ratio: 1.48 Vertebral artery: Right: Antegrade flow left: Antegrade flow Patchy and linear echogenic material is seen along the carotid arterial wiley bilaterally some of which casts and acoustic shadow. IMPRESSION: According to the SRU criteria there is a 50-69% stenosis of the left internal carotid artery. There is less than 50% stenosis of the right internal carotid artery. This is secondary to both calcified and noncalcified atheromatous plaque formation <Electronically signed by Kaden Araujo > 12/22/20 [id number]
== END ==
LOC: M RAD 13:44
PROVIDERS: ATTEND Family Medicine
DX: I65.23 Occlusion and stenosis of bilateral carotid arteries (principal)

== ENCOUNTER → 2021-05-29 | Outpatient (CLI) | payer BC ==
[2021-05-29 15:27] LABS: BASO # 0.1 10^3/uL (0.0-0.2); BASO % 0.9 % (0.0-1.0); EOS # 0.1 10^3/uL (0.0-0.5); EOS % 1.9 % (0.0-3.0); HEMATOCRIT 40.1 % (42.0-52.0); LYMPH # 2.2 10^3/uL (1.5-5.0); MEAN CORPUSCULAR HEMOGLOBIN 32.4 pg (27.0-33.0); MEAN CORPUSCULAR HGB CONC 32.4 g/dl (32.0-36.5); MONO # 0.6 10^3/uL (0.0-0.8); MONO % 8.5 % (2.0-8.0); NEUTROPHILS # 3.7 10^3/uL (1.5-8.5); NEUTROPHILS % 55.6 % (36.0-66.0); PLATELET COUNT, AUTOMATED 175 10^3/uL (150-450); RED BLOOD COUNT 4.01 10^6/uL (4.30-6.10); WHITE BLOOD COUNT 6.7 10^3/uL (4.0-10.0)
[2021-05-29 16:07] LABS: ALBUMIN 3.7 GM/DL (3.2-5.2); ALT/SGPT 16 U/L (12-78); BILIRUBIN,TOTAL 0.8 MG/DL (0.2-1.0); BLOOD UREA NITROGEN 6 MG/DL (7-18); CALCIUM LEVEL 9.1 MG/DL (8.8-10.2); CARBON DIOXIDE LEVEL 29 MEQ/L (21-32); CHLORIDE LEVEL 107 MEQ/L (98-107); CHOLESTEROL LEVEL 88 MG/DL (<200); CREATININE FOR GFR 0.86 MG/DL (0.70-1.30); FREE T4 1.01 NG/DL (0.76-1.46); GLOMERULAR FILTRATION RATE > 60.0 (>49); GLUCOSE, FASTING 90 MG/DL (70-100); HDL CHOLESTEROL 40 MG/DL (>40); LDL CHOLESTEROL 37 MG/DL (<100); NON-HDL-C 48 MG/DL; POTASSIUM SERUM 4.6 MEQ/L (3.5-5.1); SODIUM LEVEL 138 MEQ/L (136-145); TOTAL PROTEIN 6.8 GM/DL (6.4-8.2); TRIGLYCERIDES LEVEL 57 MG/DL (<150)
== END ==
LOC: M PLALAB 13:00
PROVIDERS: ATTEND Family Medicine
DX: Z12.5 Encounter for screening for malignant neoplasm of prostate (principal); I10 Essential (primary) hypertension; E78.5 Hyperlipidemia, unspecified; D64.9 Anemia, unspecified
CPT/HCPCS: 36415; 80053; 80061; 84439; 84443; 85025; G0103

== ENCOUNTER → 2021-12-26 | Outpatient (CLI) | payer BC ==
[2021-12-26 17:46] LABS: BASO # 0.1 10^3/uL (0.0-0.2); BASO % 1.5 % (0.0-1.0); EOS # 0.1 10^3/uL (0.0-0.5); EOS % 1.9 % (0.0-3.0); HEMATOCRIT 39.3 % (42.0-52.0); HEMOGLOBIN 12.9 g/dl (13.5-17.5); LYMPH # 2.6 10^3/uL (1.5-5.0); LYMPH % 37.3 % (24.0-44.0); MEAN CORPUSCULAR HEMOGLOBIN 33.1 pg (27.0-33.0); MEAN CORPUSCULAR HGB CONC 32.8 g/dl (32.0-36.5); MEAN CORPUSCULAR VOLUME 100.8 fl (80.0-96.0); MONO # 0.6 10^3/uL (0.0-0.8); NEUTROPHILS # 3.4 10^3/uL (1.5-8.5); NEUTROPHILS % 49.9 % (36.0-66.0); PLATELET COUNT, AUTOMATED 164 10^3/uL (150-450); WHITE BLOOD COUNT 6.9 10^3/uL (4.0-10.0)
[2021-12-26 18:16] LABS: BLOOD UREA NITROGEN 6 MG/DL (7-18); CALCIUM LEVEL 9.3 MG/DL (8.8-10.2); CARBON DIOXIDE LEVEL 28 MEQ/L (21-32); CHLORIDE LEVEL 104 MEQ/L (98-107); CREATININE FOR GFR 0.92 MG/DL (0.70-1.30); GLOMERULAR FILTRATION RATE > 60.0 (>49); GLUCOSE, FASTING 100 MG/DL (70-100); POTASSIUM SERUM 4.7 MEQ/L (3.5-5.1); SODIUM LEVEL 134 MEQ/L (136-145)
== END ==
LOC: M PLALAB 15:22
PROVIDERS: ATTEND Nurse Practitioner Adult Health
DX: I10 Essential (primary) hypertension (principal)

== ENCOUNTER → 2022-07-18 | Outpatient (CLI) | payer BC ==
[2022-07-18 15:58] LABS: BASO # 0.1 10^3/uL (0.0-0.2); BASO % 1.6 % (0.0-1.0); EOS # 0.1 10^3/uL (0.0-0.5); EOS % 1.8 % (0.0-3.0); HEMATOCRIT 43.6 % (42.0-52.0); LYMPH # 2.4 10^3/uL (1.5-5.0); LYMPH % 39.3 % (24.0-44.0); MEAN CORPUSCULAR HEMOGLOBIN 32.3 pg (27.0-33.0); MEAN CORPUSCULAR HGB CONC 32.1 g/dl (32.0-36.5); MEAN CORPUSCULAR VOLUME 100.7 fl (80.0-96.0); MONO # 0.5 10^3/uL (0.0-0.8); MONO % 8.4 % (2.0-8.0); NEUTROPHILS % 48.4 % (36.0-66.0); PLATELET COUNT, AUTOMATED 175 10^3/uL (150-450); RED BLOOD COUNT 4.33 10^6/uL (4.30-6.10); WHITE BLOOD COUNT 6.2 10^3/uL (4.0-10.0)
[2022-07-18 16:21] LABS: ALBUMIN 3.8 G/DL (3.2-5.2); ALKALINE PHOSPHATASE 81 U/L (46-116); ALT/SGPT 14 U/L (7.0-40); AST/SGOT 12 U/L (<34); BLOOD UREA NITROGEN 7 MG/DL (9-23); CARBON DIOXIDE LEVEL 27 MMOL/L (20-31); CHLORIDE LEVEL 103 MMOL/L (98-107); CHOLESTEROL LEVEL 87 MG/DL (<200); CHOLESTEROL RISK RATIO 2.21 (<5); CREATININE FOR GFR 0.89 MG/DL (0.70-1.30); GLOMERULAR FILTRATION RATE > 60.0 (>49); GLUCOSE, FASTING 87 MG/DL (74-106); HDL CHOLESTEROL 39.2 MG/DL (>40); IRON (FE) 55 UG/DL (65-175); LDL CHOLESTEROL 37.8 MG/DL (<100); NON-HDL-C 47.8 MG/DL; PERCENT SATURATION 20.2 % (19.7-50.0); POTASSIUM SERUM 4.3 MMOL/L (3.5-5.1); SODIUM LEVEL 137 MMOL/L (136-145); TOTAL IRON BINDING CAPACITY 272 UG/DL (250-425); TOTAL PROTEIN 6.8 G/DL (5.7-8.2); TRIGLYCERIDES LEVEL 50 MG/DL (<150)
[2022-07-18 16:23] LABS: FREE T4 0.86 NG/DL (0.89-1.76)
[2022-07-18 16:24] LABS: FOLATE > 24.00 NG/ML (>5.4); THYROID STIMULATING HORMONE 1.576 uIU/ML (0.55-4.78); VITAMIN B12 LEVEL 196 PG/ML (211-911)
[2022-07-22 23:10] LABS: PSA TOTAL 1.6 ng/mL (0.0-4.0)
== END ==
LOC: M PLALAB 14:08
PROVIDERS: ATTEND Nurse Practitioner Adult Health
DX: D64.9 Anemia, unspecified (principal); Z12.5 Encounter for screening for malignant neoplasm of prostate; E78.5 Hyperlipidemia, unspecified; I10 Essential (primary) hypertension

== ENCOUNTER → 2022-08-15 | Outpatient (CLI) | payer BC | LOC: M RAD 13:57 | PROVIDERS: ATTEND Surgery Vascular Surgery | DX: I65.23 Occlusion and stenosis of bilateral carotid arteries (principal) ==

== ENCOUNTER → 2022-08-23 | Outpatient (CLI) | payer BC | LOC: M RAD 15:51 | PROVIDERS: ATTEND Nurse Practitioner Adult Health | DX: Z12.2 Encounter for screening for malignant neoplasm of respiratory organs (principal); F17.210 Nicotine dependence, cigarettes, uncomplicated; J44.9 Chronic obstructive pulmonary disease, unspecified; R91.8 Other nonspecific abnormal finding of lung field ==

== ENCOUNTER → 2023-06-18 | Outpatient (CLI) | payer BC ==
[2023-06-18 15:42] LABS: BASO # 0.1 10^3/uL (0.0-0.2); BASO % 1.1 % (0.0-1.0); EOS # 0.1 10^3/uL (0.0-0.5); EOS % 1.9 % (0.0-3.0); HEMATOCRIT 40.6 % (42.0-52.0); HEMOGLOBIN 13.7 g/dl (13.5-17.5); LYMPH # 2.6 10^3/uL (1.5-5.0); LYMPH % 36.5 % (24.0-44.0); MEAN CORPUSCULAR HEMOGLOBIN 33.3 pg (27.0-33.0); MEAN CORPUSCULAR HGB CONC 33.7 g/dl (32.0-36.5); MEAN CORPUSCULAR VOLUME 98.8 fl (80.0-96.0); MONO # 0.5 10^3/uL (0.0-0.8); NEUTROPHILS # 3.7 10^3/uL (1.5-8.5); NEUTROPHILS % 53.4 % (36.0-66.0); PLATELET COUNT, AUTOMATED 155 10^3/uL (150-450); RED BLOOD COUNT 4.11 10^6/uL (4.30-6.10)
[2023-06-18 16:12] LABS: THYROID STIMULATING HORMONE 2.605 uIU/ML (0.55-4.78)
[2023-06-18 16:14] LABS: FREE T4 1.02 NG/DL (0.89-1.76)
[2023-06-18 16:17] LABS: IRON (FE) 67 UG/DL (65-175); PERCENT SATURATION 26.7 % (19.7-50.0); TOTAL IRON BINDING CAPACITY 251 UG/DL (250-425)
[2023-06-18 16:30] LABS: ALBUMIN 3.9 G/DL (3.2-5.2); ALKALINE PHOSPHATASE 78 U/L (46-116); ALT/SGPT 16 U/L (7.0-40); AST/SGOT 15 U/L (<34); BLOOD UREA NITROGEN 8 MG/DL (9-23); CARBON DIOXIDE LEVEL 26 MMOL/L (20-31); CHLORIDE LEVEL 107 MMOL/L (98-107); CHOLESTEROL LEVEL 83 MG/DL (<200); CHOLESTEROL RISK RATIO 2.68 (<5); GLOMERULAR FILTRATION RATE > 60.0 (>49); GLUCOSE, FASTING 87 MG/DL (74-106); HDL CHOLESTEROL 30.9 MG/DL (>40); LDL CHOLESTEROL 41.9 MG/DL (<100); NON-HDL-C 52.1 MG/DL; POTASSIUM SERUM 4.3 MMOL/L (3.5-5.1); SODIUM LEVEL 139 MMOL/L (136-145); TOTAL PROTEIN 6.5 G/DL (5.7-8.2); TRIGLYCERIDES LEVEL 51 MG/DL (<150)
[2023-06-20 23:07] LABS: PSA TOTAL 1.1 ng/mL (0.0-4.0)
== END ==
LOC: M PLALAB 14:13
PROVIDERS: ATTEND Nurse Practitioner Adult Health
DX: I10 Essential (primary) hypertension (principal); E78.5 Hyperlipidemia, unspecified; D64.9 Anemia, unspecified; Z12.5 Encounter for screening for malignant neoplasm of prostate

== ENCOUNTER → 2023-07-25 | Outpatient (CLI) | payer BC ==
[~2023-07-25] MED LIST changes: +ASPI81TA26 PO; +CLOP75TA99 PO; +METO1TAB87 PO
== END ==
LOC: M RAD 14:19
PROVIDERS: ATTEND Family Medicine
DX: R63.4 Abnormal weight loss (principal); F17.210 Nicotine dependence, cigarettes, uncomplicated; I65.23 Occlusion and stenosis of bilateral carotid arteries

== ENCOUNTER 2023-07-27 20:01 | Emergency (ER) | payer BC ==
[~2023-07-27] VITALS: Ht 170.2 cm; Wt 49.0 kg
[~2023-07-27 20:01] MED LIST changes: -ASPI81TA26 PO; -CLOP75TA99 PO; -METO1TAB87 PO
[2023-07-27] MEDS ORDERED: SPIR-10 PO (20:39)
[2023-07-27] MEDS ORDERED: METO1TAB87 PO (20:39)
[2023-07-27 20:53] LABS: BASO # 0.1 10^3/uL (0.0-0.2); BASO % 1.4 % (0.0-1.0); EOS # 0.2 10^3/uL (0.0-0.5); EOS % 2.3 % (0.0-3.0); HEMATOCRIT 41.8 % (42.0-52.0); HEMOGLOBIN 13.8 g/dl (13.5-17.5); LYMPH # 2.5 10^3/uL (1.5-5.0); LYMPH % 31.7 % (24.0-44.0); MEAN CORPUSCULAR HEMOGLOBIN 32.8 pg (27.0-33.0); MEAN CORPUSCULAR VOLUME 99.3 fl (80.0-96.0); MONO # 0.7 10^3/uL (0.0-0.8); MONO % 8.6 % (2.0-8.0); NEUTROPHILS # 4.4 10^3/uL (1.5-8.5); NEUTROPHILS % 55.7 % (36.0-66.0); PLATELET COUNT, AUTOMATED 173 10^3/uL (150-450); RED BLOOD COUNT 4.21 10^6/uL (4.30-6.10); WHITE BLOOD COUNT 7.8 10^3/uL (4.0-10.0)
[2023-07-27] MEDS: NS 1,000 ML IV ONE (20:55)
[2023-07-27 21:10] LABS: CPK CREATINE PHOSPHOKINASE 148 U/L (46-171)
[2023-07-27 21:11] LABS: ALBUMIN 3.7 G/DL (3.2-5.2); ALKALINE PHOSPHATASE 83 U/L (46-116); ALT/SGPT 15 U/L (7.0-40); AST/SGOT 11 U/L (<34); BILIRUBIN,TOTAL 0.7 MG/DL (0.3-1.2); BLOOD UREA NITROGEN 8 MG/DL (9-23); CALCIUM LEVEL 9.1 MG/DL (8.3-10.6); CARBON DIOXIDE LEVEL 28 MMOL/L (20-31); CHLORIDE LEVEL 106 MMOL/L (98-107); CK-MB VALUE MASS < 1.0 NG/ML (<3.6); CREATININE FOR GFR 0.79 MG/DL (0.70-1.30); GLOMERULAR FILTRATION RATE > 60.0 (>49); GLUCOSE, FASTING 118 MG/DL (74-106); MB/CK RELATIVE INDEX 0.67 (< OR =4); POTASSIUM SERUM 4.4 MMOL/L (3.5-5.1); SODIUM LEVEL 140 MMOL/L (136-145)
[2023-07-27 21:36] LABS: MAGNESIUM LEVEL 1.7 MG/DL (1.8-2.4)
[2023-07-27] MEDS ORDERED: ISOVUE-370 76% 100ML VIAL As Ordered ONE (22:04)
[2023-07-27 22:11] LABS: CK-MB VALUE MASS < 1.0 NG/ML (<3.6)
[2023-07-27 22:31] VITALS: TEMP 97.8
[2023-07-27 22:37] LABS: CPK CREATINE PHOSPHOKINASE 143 U/L (46-171); MB/CK RELATIVE INDEX 0.69 (< OR =4)
[2023-07-27] MEDS: MAG SULF 1GM/100ML (MAG RUN) 1 GM in IV 1 EA IV ONE (22:39)
[2023-07-28] MEDS ORDERED: ASPI81TA26 PO (00:01)
[2023-07-28] MEDS ORDERED: CLOP75TA99 PO (00:01)
[2023-07-28] MEDS: ASPIRIN 325 MG TAB PO ONE (00:10)
[2023-07-28] MEDS: CLOPIDOGREL 75 MG TAB PO STA (00:10)
[2023-07-28 00:13] VITALS: BP 116/64; O2SAT 100
== END 2023-07-28 00:19 | disposition home or self-care (01) ==
LOC: M ED 20:01
DX: E86.0 Dehydration (principal); E83.42 Hypomagnesemia; I65.02 Occlusion and stenosis of left vertebral artery; I77.1 Stricture of artery; I11.0 Hypertensive heart disease with heart failure; E78.5 Hyperlipidemia, unspecified; Z86.73 Personal history of transient ischemic attack (TIA), and cerebral infarction without residual deficits; F17.200 Nicotine dependence, unspecified, uncomplicated
CPT/HCPCS: 70450; 71045; 71260; 80053; 82550; 82553; 83735; 84484; 85025; 87486; 87581; 87633; 87798; 93005; 93041; 94760; 96361; 96365; 99285; J3475; Q9967

== ENCOUNTER → 2024-08-04 | Outpatient (CLI) | payer MEDICARE, BC ==
[~2024-08-04] MED LIST changes: +ASPI81TA26 PO; +CLOP75TA99 PO; +METO1TAB87 PO
== END ==
LOC: M RAD 11:20
PROVIDERS: ATTEND Physician Assistant
DX: I65.23 Occlusion and stenosis of bilateral carotid arteries (principal)

== ENCOUNTER → 2025-01-10 | Outpatient (CLI) | payer MEDICARE, BC | LOC: M RAD 13:30 | PROVIDERS: ATTEND Nurse Practitioner Adult Health | DX: Z12.2 Encounter for screening for malignant neoplasm of respiratory organs (principal); F17.210 Nicotine dependence, cigarettes, uncomplicated; J43.9 Emphysema, unspecified; J47.9 Bronchiectasis, uncomplicated; J98.11 Atelectasis; I70.0 Atherosclerosis of aorta ==